=== PATIENT | female | born 1940 | race Caucasian/White ===

== ENCOUNTER → 2019-06-24 11:41 | Outpatient (BNVA) | payer MEDICARE, OTHER, SELFPAY | PROVIDERS: Family Provider Nurse Practitioner Family; PCP Nurse Practitioner Family; Visit Provider Nurse Practitioner Family | DX: M81.0 Age-related osteoporosis without current pathological fracture (principal); E03.4 Atrophy of thyroid (acquired) | CPT/HCPCS: 84443 ==

== ENCOUNTER → 2020-01-17 09:19 | Outpatient (BNVA) | payer MEDICARE, OTHER, SELFPAY | PROVIDERS: Family Provider Nurse Practitioner Family; PCP Nurse Practitioner Family; Visit Provider Nurse Practitioner Family | DX: I10 Essential (primary) hypertension (principal); E03.4 Atrophy of thyroid (acquired); E07.9 Disorder of thyroid, unspecified; Z79.899 Other long term (current) drug therapy | CPT/HCPCS: 80053; 80061; 84443 ==

== ENCOUNTER → 2020-09-15 09:48 | Outpatient (BNVA) | payer MEDICARE, OTHER, SELFPAY | PROVIDERS: Family Provider Nurse Practitioner Family; PCP Nurse Practitioner Family; Visit Provider Nurse Practitioner Family | DX: E78.5 Hyperlipidemia, unspecified (principal); I10 Essential (primary) hypertension; E03.4 Atrophy of thyroid (acquired) | CPT/HCPCS: 80053; 80061; 84443 ==

== ENCOUNTER 2021-06-21 13:38 | Emergency (ER) | payer MEDICARE, OTHER, SELFPAY ==
--- NOTE | 2021-06-21 13:58 | ED_ITS ---
Documented by User: JUDY Rosado 06/21/21 16:50 HPI - Nausea/Vomiting/Diarrhea General: Chief complaint: Syncope Stated complaint: N/D, WEAKNESS, PASSING OUT Time Seen by Provider: 06/21/21 20:50 History of Present Illness: HPI Narrative: Patient presents with nausea for the last couple days. Has had little bit of diarrhea. Patient denies any fever chills shortness of breath chest pain. Patient says she had a syncopal episode today around lunchtime when she was walking says she just passed out. She was able to let her self down slowly. She denies any injury. States she feels better now. Says she has been drinking plenty of fluids. Has history of hypertension and hypothyroidism. Patient does not appear in acute distress triage nurse relates that it was not a syncopal episode but that she let her self down slowly. And this would make more sense with what she described to me earlier. Family said it was a syncopal episode though they thought [facility] ED PFSH: Medical History HTN (hypertension) Hyperlipidemia Hypothyroidism Osteoporosis Family History Father Hypertension Social History Smoking and tobacco status: never smoked Lives independently: Yes Housing: House Marital status: / Course Vital Signs: Vital signs: Vital Signs Temperature 99.4 F 06/21/21 22:03 Pulse Rate 74 06/21/21 22:03 Respiratory Rate 18 06/21/21 22:03 Blood Pressure 143/84 06/21/21 22:03 Pulse Oximetry 95 06/21/21 22:03 MDM - Nausea/Vomiting/Diarrhea MDM Narrative Medical decision making narrative: Brief history and physical exam was performed as part of the triage process. Due to current ED wait time patient will be placed in waiting room until a room becomes available. Explained to patient he/she will be seen in order of severity. Patient is currently safe to wait in the waiting room until we can get them placed. Patient informed that if condition worsens at any time to please let the front line leader know. Patient does not appear in any acute distress. Patient very pleasant to visit with. Labs radiology studies were ordered. I have kept family informed after the area lab study was back. Patient has been in no distress has been waiting patiently. Awaiting 2-hour troponin now. Lab Data Result diagrams: 06/21/21 14:50 06/21/21 14:50 Labs: Lab Results 06/21/21 06/21/21 06/21/21 14:50 14:50 14:50 WBC 5.7 10^3/uL 10^3/uL (4.0-10.0) RBC 4.62 10^6/uL 10^6/uL (4.1-5.3) Hgb 14.5 g/dL g/dL (11.5-15.3) Hct 44.2 % % (37.0-47.0) MCV 95.7 fl fl (81-99) MCH 31.4 pg pg (28.0-34.0) MCHC 32.8 g/dL g/dL (30.0-36.0) RDW 13.0 % % (12.1-15.1) Plt Count 152 10^3/cmm 10^3/cmm (130-400) MPV 11.0 fL H fL (7.4-10.4) Neut % (Auto) 54.0 % % Lymph % (Auto) 31.8 % % [place] % (Auto) 13.4 % % Eos % (Auto) 0.0 % % Baso % (Auto) 0.4 % % Neut # (Auto) 3.06 10^3/uL 10^3/uL (1.8-7.7) Lymph # (Auto) 1.8 10^3/uL 10^3/uL (0.8-4.8) [place] # (Auto) 0.8 10^3/uL 10^3/uL (0.2-0.9) Eos # (Auto) 0.0 10^3/uL 10^3/uL (0.0-0.8) Baso # (Auto) 0.0 10^3/uL 10^3/uL (0.0-0.1) Nucleated RBC % (auto) 0 % % Nucleated RBCs # 0.0 /100WBC /100WBC Sodium 135 mmol/L L mmol/L (136-145) Potassium 3.9 mmol/L mmol/L (3.5-5.1) Chloride 98 mmol/L mmol/L (98-107) Carbon Dioxide 26 mmol/L mmol/L (22-29) Anion Gap 14.9 (5-19) BUN 14 mg/dL mg/dL (8-23) Creatinine 0.8 mg/dL mg/dL (0.5-0.9) GFR Calculation Not Reportable Glucose 108 mg/dL mg/dL (65-115) Calculated Osmolality 281 mOsm/kg L mOsm/kg (285-295) Calcium 8.7 mg/dL mg/dL (8.5-10.5) Total Bilirubin 0.2 mg/dL mg/dL (0.15-1.2) AST 25 U/L U/L (0-32) ALT 15 U/L U/L (0-33) Alkaline Phosphatase 76 IU/L IU/L (35-105) Troponin T Baseline 29 ng/L H ng/L (0-10) Troponin T 120 Minute Delta Troponin T Total Protein 6.4 g/dL L g/dL (6.6-8.7) Albumin 4.2 g/dL g/dL (3.5-5.2) Globulin 2.2 g/dL g/dL (1.3-4.6) Lipase 32 U/L U/L (13-60) Urine Color Urine Appearance Urine pH Ur Specific [place] Urine Protein Urine Glucose (UA) Urine Ketones Urine Blood Urine Nitrate Urine Bilirubin Urine Urobilinogen Ur Leukocyte Esterase Urine RBC Urine WBC Ur Squamous Epith Cells Amorphous Sediment Urine Bacteria Urine Mucus SARS-CoV-2 RNA (RT-PCR) 06/21/21 06/21/21 06/21/21 15:55 16:58 20:50 WBC RBC Hgb Hct MCV MCH MCHC RDW Plt Count MPV Neut % (Auto) Lymph % (Auto) [place] % (Auto) Eos % (Auto) Baso % (Auto) Neut # (Auto) Lymph # (Auto) [place] # (Auto) Eos # (Auto) Baso # (Auto) Nucleated RBC % (auto) Nucleated RBCs # Sodium Potassium Chloride Carbon Dioxide Anion Gap BUN Creatinine GFR Calculation Glucose Calculated Osmolality Calcium Total Bilirubin AST ALT Alkaline Phosphatase Troponin T Baseline Troponin T 120 Minute 27.52 ng/L H ng/L (0-10) Delta Troponin T -1.48 ABS# L ABS# (0-10) Total Protein Albumin Globulin Lipase Urine Color Yellow (Yellow) Urine Appearance Clear (CLEAR) Urine pH 5 (5-7) Ur Specific [place] 1.020 (1.005-1.030) Urine Protein Neg (Negative) Urine Glucose (UA) Norm (Normal) Urine Ketones Negative (Negative) Urine Blood Trace H (Negative) Urine Nitrate Negative (Negative) Urine Bilirubin Neg (Negative) Urine Urobilinogen Norm mg/dL mg/dL (Negative) Ur Leukocyte Esterase Negative (Negative) Urine RBC Rare /hpf /hpf (0-2) Urine WBC 0-4 /hpf H /hpf (0-5) Ur Squamous Epith Cells None /hpf /hpf (0-5) Amorphous Sediment Not Reportable Urine Bacteria Trace /hpf /hpf (NONE) Urine Mucus Trace /hpf /hpf SARS-CoV-2 RNA (RT-PCR) Detected A (NOT DETECTED) Discharge Plan Discharge Patient Disposition: Home Clinical Impression: Weakness, Nausea Diarrhea Qualifiers: Diarrhea type: unspecified type Qualified Code(s): R19.7 - Diarrhea, unspecified Condition: Stable Prescriptions: New ondansetron 4 mg tablet,disintegrating 4 mg PO Q8H PRN (Reason: nausea and vomiting) Qty: 15 0RF No Action furosemide [Lasix] 40 mg tablet 40 mg PO .PRN 0RF levothyroxine 50 mcg tablet See Rx Instructions .ROUTE .COMPLEX Qty: 90 0RF Dose Instruction: TAKE 1 TABLET BY MOUTH EVERY DAY Rx Instructions: TAKE 1 TABLET BY MOUTH EVERY DAY metoprolol tartrate 100 mg tablet See Rx Instructions .ROUTE .COMPLEX Qty: 90 0RF Dose Instruction: TAKE 1 TABLET BY MOUTH EVERY DAY Rx Instructions: TAKE 1 TABLET BY MOUTH EVERY DAY lisinopril 40 mg tablet See Rx Instructions .ROUTE .COMPLEX Qty: 90 0RF Dose Instruction: TAKE 1 TABLET BY MOUTH EVERY DAY Rx Instructions: TAKE 1 TABLET BY MOUTH EVERY DAY alendronate 70 mg tablet See Rx Instructions .ROUTE .COMPLEX Qty: 12 0RF Dose Instruction: TAKE 1 TABLET BY MOUTH WEEKLY Rx Instructions: TAKE 1 TABLET BY MOUTH WEEKLY Discharge Orders: Discharge ED (Routine); Ordered 06/21/21 Ordered By: Asael Hazel Referrals: Wendy Johnston FNP [Primary Care Provider] - Discharge Diet: Regular Discharge Activity: Increase activity as tolerated Patient Instructions: Acute Diarrhea (ED) Activity Restrictions/Additional Instructions: Follow-up with medical provider as directed in the next 3 days for reevaluation. Covid test was done here in the ED and results should be back within the next 36 to 48 hours. [facility] to get COVID-19 results. Take medications as prescribed. Having multiple episodes of diarrhea daily but you at increased risk for dehydration. Make sure you drink plenty of fluids and stay hydrated. Return to the ER or your medical provider if condition worsens. Please read and understand discharge instructions. [facility]. Please realize this is an emergency room and that we are providing you with a medical screening exam and this may not be complete and all inclusive of all the testing and or work up that you may need to determine your ailment or severity of your illness. It is very important that you follow up as instructed or that you return to the Emergency Department should you have concerns or if your condition changes or worsens in any way. Coding Level of Care Code ED Loan Servicing Officer for Chg Fwd Exam Comprehensive Documented by User: TAB Taylor 06/22/21 01:20 HPI - Nausea/Vomiting/Diarrhea General: Chief complaint: Syncope Stated complaint: N/D, WEAKNESS, PASSING OUT Time Seen by Provider: 06/21/21 20:50 History of Present Illness: HPI Narrative: Patient is an 81-year-old female that comes to the ED with generalized weakne ss/fatigue nausea and diarrhea. Symptoms of diarrhea and nausea started approximately 2 days ago. Today she was feeling more weak and says that she was walking and due to her weakness she slowly lowered herself down to the ground. She denies any syncopal episode, loss of consciousness, fall, head injury. Patient says she was aware of what she was doing and controlled herself down and denies any head trauma. For the past 2 days she has had diarrhea and this morning she had 5 episodes of diarrhea. She has nausea but no episodes of emesis. Patient says she has an appointment with her PCP tomorrow. Associated nausea: Yes Associated symtoms: Reports fatigue (generalized weakness) and nausea; Denies change in vision, chest pain, dysuria, headache(s) or palpitations Review of Systems Const: Reports: change in appetite (Decreased) and fatigue (generalized weakness); Denies: fever(s) or chills Eyes: Denies: change in vision or eye discomfort ENMT: Denies: throat pain, odynophagia, nasal discharge or nasal congestion Card: Denies: chest pain, palpitations, edema, swelling of feet/ankles, dyspnea on exertion or orthopnea Resp: Denies: dyspnea, productive cough or non-productive cough GI: Reports: nausea and diarrhea; Denies: abdominal pain, vomiting, constipation or hematochezia : Denies: flank pain, dysuria or hematuria Musc: Denies: neck pain, back pain or extremity swelling Skin/Breast: Denies: rash or new lesions Neuro: Denies: headache(s), numbness in extremities or weakness in extremities PFSH ED PFSH: Medical History HTN (hypertension) Hyperlipidemia Hypothyroidism Osteoporosis Family History Father Hypertension Social History Smoking and tobacco status: never smoked Lives independently: Yes Housing: House Marital status: / Physical Exam Const: COMMON NORMALS: no acute distress, patient oriented x3 and alert GENERAL APPEARANCE: cooperative and comfortable HENMT: COMMON NORMALS: normocephalic HEAD & SCALP: normocephalic MOUTH: Normal oral and palatal mucosa present THROAT: posterior oropharynx normal and uvula midline Eye: COMMON NORMALS: EOMs intact bilaterally and conjunctivae normal CONJUNCTIVA: Yes conjunctivae normal Neck/C-Spine: COMMON NORMALS: supple GENERAL: Yes normal visual inspection Resp: COMMON NORMALS: normal respiratory effort, No retractions, No use of accessory muscles and clear to auscultation bilaterally AUSCULTATION: clear to auscultation bilaterally Cardio: COMMON NORMALS: regular rate, regular rhythm, S1 normal heart sound present, S2 normal heart sound present, No gallops present (Cardio), No clicks present (Cardio), No murmurs present (Cardio) and Peripheral pulses 2+ throughout RATE: regular rate RHYTHM: regular rhythm HEART SOUNDS: S1 normal heart sound present and S2 normal heart sound present PERIPHERAL PULSES: Peripheral pulses 2+ throughout GI: COMMON NORMALS: Normal to inspection, nondistended, normoactive bowel sounds present, Soft to palpation, non-tender and no masses PALPATION: Yes Soft to palpation : COMMON NORMALS: Yes no CVA tenderness BLADDER/KIDNEY EXAM: Yes no CVA tenderness Back/Pelvis: COMMON NORMALS: no CVA tenderness Neuro: COMMON NORMALS: patient oriented x3, CN's II-XII intact bilaterally, moves all extremities, no focal motor deficits and no sensory deficits noted SENSORIUM/ORIENTATION: Yes alert SPEECH: speech normal Skin: GENERAL SKIN EXAM: dry skin Course Reevaluation(s): Reevaluation #1: Patient was brought back into vertical flow to discuss lab, imaging results and to reevaluate her for possible discharge. Patient says she feels normal with just a little bit of fatigue and generalized weakness. Her exam was normal. I discussed with patient the possibility of her having Covid due to her symptoms and I recommended her to be tested. She agreed and we tested her for COVID-19. I told patient and her son to talk with her PCP her appointment tomorrow about the possibility of monoclonal antibody infusions if Covid test is positive. Patient was stable and comfortable with discharge home. They understood and agreed with plan. She has follow-up with her PCP tomorrow morning. Her son and [id number] were present here in the ED. Time: 21:09 Vital Signs: Vital signs: Vital Signs Temperature 99.4 F 06/21/21 22:03 Pulse Rate 74 06/21/21 22:03 Respiratory Rate 18 06/21/21 22:03 Blood Pressure 143/84 06/21/21 22:03 Pulse Oximetry 95 06/21/21 22:03 MDM - Nausea/Vomiting/Diarrhea MDM Narrative Medical decision making narrative: Patient is an 81-year-old female who comes to the ED with nausea, diarrhea and fatigue/generalized weakness. Patient did not have a syncopal episode, but describes saying she felt weak while up moving around and she decided to lower herself to the floor because she was worried with how weak she was feeling she was going to fall. She denies any loss of consciousness or head trauma and was a hare the whole time she was lowering herself purposefully to the floor. She has had nausea, diarrhea for the past 2 days. Vitals stable. Labs were done and showed no acute findings. Troponins were negative. Chest x-ray showed no acute findings. EKG showed sinus rhythm with no ST segment elevation or depression seen. [facility] COVID-19 testing was performed and is pending. I reviewed patient case labs and EKG with Dr. Payne to discuss possible DC from waiting room since all labs, imaging done and normal. Dr. Payne agreed with discharge home as long as she has close follow-up and she has an appointment with her PCP already scheduled for tomorrow. Patient was brought back into vertical flow to discuss lab, imaging results and to reevaluate her for possible discharge. Patient says she feels normal with just a little bit of fatigue and generalized weakness. Her exam was normal. I discussed with patient the possibility of her having Covid due to her symptoms and I recommended her to be tested. She agreed and we tested her for COVID-19. I told patient and her son to talk with her PCP her appointment tomorrow about the possibility of monoclonal antibody infusions if Covid test is positive. Patient was stable and comfortable with discharge home. She was sent home with a prescription for Zofran for nausea. She was encouraged to make sure she drinks plenty of fluids and stays hydrated. They understood and agreed with plan. She has follow-up with her PCP tomorrow morning. Her son and [id number] were present here in the ED. Lab Data Attestation: I reviewed the patient's lab results. Result diagrams: 06/21/21 14:50 06/21/21 14:50 Labs: Lab Results 06/21/21 06/21/21 06/21/21 14:50 14:50 14:50 WBC 5.7 10^3/uL 10^3/uL (4.0-10.0) RBC 4.62 10^6/uL 10^6/uL (4.1-5.3) Hgb 14.5 g/dL g/dL (11.5-15.3) Hct 44.2 % % (37.0-47.0) MCV 95.7 fl fl (81-99) MCH 31.4 pg pg (28.0-34.0) MCHC 32.8 g/dL g/dL (30.0-36.0) RDW 13.0 % % (12.1-15.1) Plt Count 152 10^3/cmm 10^3/cmm (130-400) MPV 11.0 fL H fL (7.4-10.4) Neut % (Auto) 54.0 % % Lymph % (Auto) 31.8 % % [place] % (Auto) 13.4 % % Eos % (Auto) 0.0 % % Baso % (Auto) 0.4 % % Neut # (Auto) 3.06 10^3/uL 10^3/uL (1.8-7.7) Lymph # (Auto) 1.8 10^3/uL 10^3/uL (0.8-4.8) [place] # (Auto) 0.8 10^3/uL 10^3/uL (0.2-0.9) Eos # (Auto) 0.0 10^3/uL 10^3/uL (0.0-0.8) Baso # (Auto) 0.0 10^3/uL 10^3/uL (0.0-0.1) Nucleated RBC % (auto) 0 % % Nucleated RBCs # 0.0 /100WBC /100WBC Sodium 135 mmol/L L mmol/L (136-145) Potassium 3.9 mmol/L mmol/L (3.5-5.1) Chloride 98 mmol/L mmol/L (98-107) Carbon Dioxide 26 mmol/L mmol/L (22-29) Anion Gap 14.9 (5-19) BUN 14 mg/dL mg/dL (8-23) Creatinine 0.8 mg/dL mg/dL (0.5-0.9) GFR Calculation Not Reportable Glucose 108 mg/dL mg/dL (65-115) Calculated Osmolality 281 mOsm/kg L mOsm/kg (285-295) Calcium 8.7 mg/dL mg/dL (8.5-10.5) Total Bilirubin 0.2 mg/dL mg/dL (0.15-1.2) AST 25 U/L U/L (0-32) ALT 15 U/L U/L (0-33) Alkaline Phosphatase 76 IU/L IU/L (35-105) Troponin T Baseline 29 ng/L H ng/L (0-10) Troponin T 120 Minute Delta Troponin T Total Protein 6.4 g/dL L g/dL (6.6-8.7) Albumin 4.2 g/dL g/dL (3.5-5.2) Globulin 2.2 g/dL g/dL (1.3-4.6) Lipase 32 U/L U/L (13-60) Urine Color Urine Appearance Urine pH Ur Specific [place] Urine Protein Urine Glucose (UA) Urine Ketones Urine Blood Urine Nitrate Urine Bilirubin Urine Urobilinogen Ur Leukocyte Esterase Urine RBC Urine WBC Ur Squamous Epith Cells Amorphous Sediment Urine Bacteria Urine Mucus SARS-CoV-2 RNA (RT-PCR) 06/21/21 06/21/21 06/21/21 15:55 16:58 20:50 WBC RBC Hgb Hct MCV MCH MCHC RDW Plt Count MPV Neut % (Auto) Lymph % (Auto) [place] % (Auto) Eos % (Auto) Baso % (Auto) Neut # (Auto) Lymph # (Auto) [place] # (Auto) Eos # (Auto) Baso # (Auto) Nucleated RBC % (auto) Nucleated RBCs # Sodium Potassium Chloride Carbon Dioxide Anion Gap BUN Creatinine GFR Calculation Glucose Calculated Osmolality Calcium Total Bilirubin AST ALT Alkaline Phosphatase Troponin T Baseline Troponin T 120 Minute 27.52 ng/L H ng/L (0-10) Delta Troponin T -1.48 ABS# L ABS# (0-10) Total Protein Albumin Globulin Lipase Urine Color Yellow (Yellow) Urine Appearance Clear (CLEAR) Urine pH 5 (5-7) Ur Specific [place] 1.020 (1.005-1.030) Urine Protein Neg (Negative) Urine Glucose (UA) Norm (Normal) Urine Ketones Negative (Negative) Urine Blood Trace H (Negative) Urine Nitrate Negative (Negative) Urine Bilirubin Neg (Negative) Urine Urobilinogen Norm mg/dL mg/dL (Negative) Ur Leukocyte Esterase Negative (Negative) Urine RBC Rare /hpf /hpf (0-2) Urine WBC 0-4 /hpf H /hpf (0-5) Ur Squamous Epith Cells None /hpf /hpf (0-5) Amorphous Sediment Not Reportable Urine Bacteria Trace /hpf /hpf (NONE) Urine Mucus Trace /hpf /hpf SARS-CoV-2 RNA (RT-PCR) Detected A (NOT DETECTED) Imaging Data^ CXR: Attestation: I personally reviewed and interpreted this imaging study as follows: Radiologist's impression: [facility] [facility] [place], [place] [address]EDqq ReportSigned Patient: Gabbi Joiner #: [id number]: 1940cct#:[id number]/Sex: 81 / FADM Date: 06/21/21Loc: ERRoom/Bed:Attending Dr: Ordering Provider/Ordering MD: Monique Lopez Sr, [facility] Date of Service: 06/21/21 Procedure(s): XR chest 1V portable [id number] Accession Number(s): [id number] Report Number: [id number] WS: [id number] CHEST XRAY TECHNIQUE: Portable chest. CLINICAL INFORMATION: syncope COMPARISON: None. FINDINGS: Heart: Cardiomegaly. Lungs: Chronic emphysematous changes. No acute pulmonary infiltrates. No focal pneumonia or pleural fluid. Bones: Mild thoracic curve. XR/XR chest 1V portable [id number] IMPRESSION: No acute chest findings. Dictated By:Sammy Gamez MDSigned By:Sammy Gamez MDSigned Date/Time:06/21/21 1441DD/ 1440 EKG Data^ EKG 1: Attestation: I personally reviewed and interpreted this EKG as follows: EKG interpretation date: 06/21/21 Computer generated interpretation: [place] [id number] [facility] [place], [place] [email or web address] ReportDraft Patient: Gabbi Joiner #: [id number]: [birth year]Acct#:[id number]/Sex: 81 / FADM Date: 06/21/21Loc: ERRoom/Bed:Attending Dr: Ordering Provider/Ordering MD: Monique Lopez Sr, [facility] Date of Service: 06/21/21 Procedure(s): ECG 12 lead EKG Accession Number(s): [id number] Report Number: [id number] [facility] Test Date: 2021-06-21 Pat Name: Yazmin Joiner Department: Room: Gender: Female [place] Floor: : 1940 Requested By: Alphonso Lopez Order Number: [id number] Maximilian MD: Measurements Intervals [place] Rate: 72 P: 15 NV: 159 QRS: -54 QRSD: 95 T: 19 QT: 376 QTc: 414 Interpretive Statements SINUS RHYTHM PATTERN CONSISTENT WITH PULMONARY DISEASE LEFT ANTERIOR FASCICULAR BLOCK [QRS AXIS <= -45, QR IN I, RS IN II] VOLTAGE CRITERIA FOR LVH [MEETS CRITERIA IN ONE OF: R(aVL), S(V1), R(V5), R(V5/V6)+S(V1)] No previous ECG available for comparison [email or web address] Dictated By:INTERFACE,USERSigned By:Signed Date/Time:DD/ 1440 EKG 2: Attestation: I personally reviewed and interpreted this EKG as follows: EKG interpretation date: 06/21/21 EKG interpretation time: 20:16 Interpretation: Sinus rhythm with occasional supraventricular premature complexes. [address] segment elevation or depression seen. Discharge Plan Discharge Patient Disposition: Home Clinical Impression: Weakness, Nausea Diarrhea Qualifiers: Diarrhea type: unspecified type Qualified Code(s): R19.7 - Diarrhea, unspecified Condition: Stable Prescriptions: New ondansetron 4 mg tablet,disintegrating 4 mg PO Q8H PRN (Reason: nausea and vomiting) Qty: 15 0RF No Action furosemide [Lasix] 40 mg tablet 40 mg PO .PRN 0RF levothyroxine 50 mcg tablet See Rx Instructions .ROUTE .COMPLEX Qty: 90 0RF Dose Instruction: TAKE 1 TABLET BY MOUTH EVERY DAY Rx Instructions: TAKE 1 TABLET BY MOUTH EVERY DAY metoprolol tartrate 100 mg tablet See Rx Instructions .ROUTE .COMPLEX Qty: 90 0RF Dose Instruction: TAKE 1 TABLET BY MOUTH EVERY DAY Rx Instructions: TAKE 1 TABLET BY MOUTH EVERY DAY lisinopril 40 mg tablet See Rx Instructions .ROUTE .COMPLEX Qty: 90 0RF Dose Instruction: TAKE 1 TABLET BY MOUTH EVERY DAY Rx Instructions: TAKE 1 TABLET BY MOUTH EVERY DAY alendronate 70 mg tablet See Rx Instructions .ROUTE .COMPLEX Qty: 12 0RF Dose Instruction: TAKE 1 TABLET BY MOUTH WEEKLY Rx Instructions: TAKE 1 TABLET BY MOUTH WEEKLY Discharge Orders: Discharge ED (Routine); Ordered 06/21/21 Ordered By: Asael Hazel Referrals: Wendy Johnston FNP [Primary Care Provider] - Discharge Diet: Regular Discharge Activity: Increase activity as tolerated Patient Instructions: Acute Diarrhea (ED) Activity Restrictions/Additional Instructions: Follow-up with medical provider as directed in the next 3 days for reevaluation. Covid test was done here in the ED and results should be back within the next 3 6 to 48 hours. You can call [facility] to get COVID-19 results. Take medications as prescribed. Having multiple episodes of diarrhea daily but you at increased risk for dehydration. Make sure you drink plenty of fluids and stay hydrated. Return to the ER or your medical provider if condition worsens. Please read and understand discharge instructions. Thank you for choosing [facility] for your healthcare needs today. Please realize this is an emergency room and that we are providing you with a medical screening exam and this may not be complete and all inclusive of all the testing and or work up that you may need to determine your ailment or severity of your illness. It is very important that you follow up as instructed or that you return to the Emergency Department should you have concerns or if your condition changes or worsens in any way. Coding Level of Care Code ED Loan Servicing Officer for Chg Fwd Exam Comprehensive Documented by User: Mt Payne MD 06/25/21 21:49 HPI - Nausea/Vomiting/Diarrhea General: Chief complaint: Syncope Stated complaint: N/D, WEAKNESS, PASSING OUT Time Seen by Provider: 06/21/21 20:50 [facility] ED PFSH: Medical History HTN (hypertension) Hyperlipidemia Hypothyroidism Osteoporosis Family History Father Hypertension Social History Smoking and tobacco status: never smoked Lives independently: Yes Housing: House Marital status: / Course Vital Signs: Vital signs: Vital Signs Temperature 99.4 F 06/21/21 22:03 Pulse Rate 74 06/21/21 22:03 Respiratory Rate 18 06/21/21 22:03 Blood Pressure 143/84 06/21/21 22:03 Pulse Oximetry 95 06/21/21 22:03 MDM - Nausea/Vomiting/Diarrhea MDM Narrative Medical decision making narrative: I discussed this patient with TAB Taylor. I have reviewed documentation. Mt Payne MD Emergency Medicine Lab Data Result diagrams: 06/21/21 14:50 06/21/21 14:50 Labs: Lab Results 06/21/21 06/21/21 06/21/21 14:50 14:50 14:50 WBC 5.7 10^3/uL 10^3/uL (4.0-10.0) RBC 4.62 10^6/uL 10^6/uL (4.1-5.3) Hgb 14.5 g/dL g/dL (11.5-15.3) Hct 44.2 % % (37.0-47.0) MCV 95.7 fl fl (81-99) MCH 31.4 pg pg (28.0-34.0) MCHC 32.8 g/dL g/dL (30.0-36.0) RDW 13.0 % % (12.1-15.1) Plt Count 152 10^3/cmm 10^3/cmm (130-400) MPV 11.0 fL H fL (7.4-10.4) Neut % (Auto) 54.0 % % Lymph % (Auto) 31.8 % % [place] % (Auto) 13.4 % % Eos % (Auto) 0.0 % % Baso % (Auto) 0.4 % % Neut # (Auto) 3.06 10^3/uL 10^3/uL (1.8-7.7) Lymph # (Auto) 1.8 10^3/uL 10^3/uL (0.8-4.8) [place] # (Auto) 0.8 10^3/uL 10^3/uL (0.2-0.9) Eos # (Auto) 0.0 10^3/uL 10^3/uL (0.0-0.8) Baso # (Auto) 0.0 10^3/uL 10^3/uL (0.0-0.1) Nucleated RBC % (auto) 0 % % Nucleated RBCs # 0.0 /100WBC /100WBC Sodium 135 mmol/L L mmol/L (136-145) Potassium 3.9 mmol/L mmol/L (3.5-5.1) Chloride 98 mmol/L mmol/L (98-107) Carbon Dioxide 26 mmol/L mmol/L (22-29) Anion Gap 14.9 (5-19) BUN 14 mg/dL mg/dL (8-23) Creatinine 0.8 mg/dL mg/dL (0.5-0.9) GFR Calculation Not Reportable Glucose 108 mg/dL mg/dL (65-115) Calculated Osmolality 281 mOsm/kg L mOsm/kg (285-295) Calcium 8.7 mg/dL mg/dL (8.5-10.5) Total Bilirubin 0.2 mg/dL mg/dL (0.15-1.2) AST 25 U/L U/L (0-32) ALT 15 U/L U/L (0-33) Alkaline Phosphatase 76 IU/L IU/L (35-105) Troponin T Baseline 29 ng/L H ng/L (0-10) Troponin T 120 Minute Delta Troponin T Total Protein 6.4 g/dL L g/dL (6.6-8.7) Albumin 4.2 g/dL g/dL (3.5-5.2) Globulin 2.2 g/dL g/dL (1.3-4.6) Lipase 32 U/L U/L (13-60) Urine Color Urine Appearance Urine pH Ur Specific [place] Urine Protein Urine Glucose (UA) Urine Ketones Urine Blood Urine Nitrate Urine Bilirubin Urine Urobilinogen Ur Leukocyte Esterase Urine RBC Urine WBC Ur Squamous Epith Cells Amorphous Sediment Urine Bacteria Urine Mucus SARS-CoV-2 RNA (RT-PCR) 06/21/21 06/21/21 06/21/21 15:55 16:58 20:50 WBC RBC Hgb Hct MCV MCH MCHC RDW Plt Count MPV Neut % (Auto) Lymph % (Auto) [place] % (Auto) Eos % (Auto) Baso % (Auto) Neut # (Auto) Lymph # (Auto) [place] # (Auto) Eos # (Auto) Baso # (Auto) Nucleated RBC % (auto) Nucleated RBCs # Sodium Potassium Chloride Carbon Dioxide Anion Gap BUN Creatinine GFR Calculation Glucose Calculated Osmolality Calcium Total Bilirubin AST ALT Alkaline Phosphatase Troponin T Baseline Troponin T 120 Minute 27.52 ng/L H ng/L (0-10) Delta Troponin T -1.48 ABS# L ABS# (0-10) Total Protein Albumin Globulin Lipase Urine Color Yellow (Yellow) Urine Appearance Clear (CLEAR) Urine pH 5 (5-7) Ur Specific [place] 1.020 (1.005-1.030) Urine Protein Neg (Negative) Urine Glucose (UA) Norm (Normal) Urine Ketones Negative (Negative) Urine Blood Trace H (Negative) Urine Nitrate Negative (Negative) Urine Bilirubin Neg (Negative) Urine Urobilinogen Norm mg/dL mg/dL (Negative) Ur Leukocyte Esterase Negative (Negative) Urine RBC Rare /hpf /hpf (0-2) Urine WBC 0-4 /hpf H /hpf (0-5) Ur Squamous Epith Cells None /hpf /hpf (0-5) Amorphous Sediment Not Reportable Urine Bacteria Trace /hpf /hpf (NONE) Urine Mucus Trace /hpf /hpf SARS-CoV-2 RNA (RT-PCR) Detected A (NOT DETECTED) Discharge Plan Discharge Patient Disposition: Home Clinical Impression: Weakness, Nausea Diarrhea Qualifiers: Diarrhea type: unspecified type Qualified Code(s): R19.7 - Diarrhea, unspecified Condition: Stable Prescriptions: New ondansetron 4 mg tablet,disintegrating 4 mg PO Q8H PRN (Reason: nausea and vomiting) Qty: 15 0RF No Action furosemide [Lasix] 40 mg tablet 40 mg PO .PRN 0RF levothyroxine 50 mcg tablet See Rx Instructions .ROUTE .COMPLEX Qty: 90 0RF Dose Instruction: TAKE 1 TABLET BY MOUTH EVERY DAY Rx Instructions: TAKE 1 TABLET BY MOUTH EVERY DAY metoprolol tartrate 100 mg tablet See Rx Instructions .ROUTE .COMPLEX Qty: 90 0RF Dose Instruction: TAKE 1 TABLET BY MOUTH EVERY DAY Rx Instructions: TAKE 1 TABLET BY MOUTH EVERY DAY lisinopril 40 mg tablet See Rx Instructions .ROUTE .COMPLEX Qty: 90 0RF Dose Instruction: TAKE 1 TABLET BY MOUTH EVERY DAY Rx Instructions: TAKE 1 TABLET BY MOUTH EVERY DAY alendronate 70 mg tablet See Rx Instructions .ROUTE .COMPLEX Qty: 12 0RF Dose Instruction: TAKE 1 TABLET BY MOUTH WEEKLY Rx Instructions: TAKE 1 TABLET BY MOUTH WEEKLY Discharge Orders: Discharge ED (Routine); Ordered 06/21/21 Ordered By: Asael Hazel Referrals: Wendy Johnston FNP [Primary Care Provider] - Discharge Diet: Regular Discharge Activity: Increase activity as tolerated Patient Instructions: Acute Diarrhea (ED) Activity Restrictions/Additional Instructions: Follow-up with medical provider as directed in the next 3 days for reevaluation. Covid test was done here in the ED and results should be back within the next 36 to 48 hours. You can call [facility] to get COVID-19 results. Take medications as prescribed. Having multiple episodes of diarrhea daily but you at increased risk for dehydration. Make sure you drink plenty of fluids and stay hydrated. Return to the ER or your medical provider if condition worsens. Please read and understand discharge instructions. Thank you for choosing [facility] for your healthcare needs today. Please realize this is an emergency room and that we are providing you with a medical screening exam and this may not be complete and all inclusive of all the testing and or work up that you may need to determine your ailment or severity of your illness. It is very important that you follow up as instructed or that you return to the Emergency Department should you have concerns or if your condition changes or worsens in any way. Coding Level of Care Code ED Loan Servicing Officer for Favio Ann Exam Comprehensive
--- NOTE | 2021-06-21 13:58 | ECG_ITS ---
[facility] Test Date: 2021-06-21 Pat Name: Yazmin Joiner Department: Room: Gender: Female Conservation Of Resources Commissioner: : 1940 Requested By: Alphonso Lopez Order Number: [id number] Maximilian MD: Agnes Gibbs M.D. Measurements Intervals [place] Rate: 72 P: 15 [place]: 159 QRS: -54 QRSD: 95 T: 19 QT: 376 QTc: 414 Interpretive Statements SINUS RHYTHM PATTERN CONSISTENT WITH PULMONARY DISEASE LEFT ANTERIOR FASCICULAR BLOCK [QRS AXIS <= -45, QR IN I, RS IN II] VOLTAGE CRITERIA FOR LVH [MEETS CRITERIA IN ONE OF: R(aVL), S(V1), R(V5), R(V5/V6)+S(V1)] Compared to ECG 03/15/2017 10:56:21 Incomplete right bundle-branch block no longer present Myocardial infarct finding no longer present Electronically Signed On 06-21-2021 23:55:58 GLOST KILN OPERATOR by Agnes Gibbs M.D. [email or web address].[employer]/store/[id number] f
--- NOTE | 2021-06-21 13:59 | XR_ITS ---
WS: [id number] CHEST XRAY TECHNIQUE: Portable chest. CLINICAL INFORMATION: syncope COMPARISON: None. FINDINGS: Heart: Cardiomegaly. Lungs: Chronic emphysematous changes. No acute pulmonary infiltrates. No focal pneumonia or pleural f luid. Bones: Mild thoracic curve. XR/XR chest 1V portable [id number] IMPRESSION: No acute chest findings.
[2021-06-21 14:43] VITALS: BP 191/94; PULSE 72; RESP 18; TEMP 37.3; O2SAT 94; BMI 26.5
[2021-06-21 15:07] LABS: Basophils % 0.4 %; Hematocrit 44.2 % (37.0-47.0); Hemoglobin 14.5 g/dL (11.5-15.3); Lymphocytes # 1.8 10^3/uL (0.8-4.8); Lymphocytes % 31.8 %; Mean Corpuscular HGB Conc 32.8 g/dL (30.0-36.0); Mean Corpuscular Hemoglobin 31.4 pg (28.0-34.0); Mean Corpuscular Volume 95.7 fl (81-99); Monocytes # 0.8 10^3/uL (0.2-0.9); Monocytes % 13.4 %; Neutrophils # 3.06 10^3/uL (1.8-7.7); Nucleated Red Blood Cells % 0 %; Platelet Count 152 10^3/cmm (130-400); Red Blood Count 4.62 10^6/uL (4.1-5.3); White Blood Count 5.7 10^3/uL (4.0-10.0)
[2021-06-21 15:27] LABS: Alanine Aminotransferase 15 U/L (0-33); Albumin Level 4.2 g/dL (3.5-5.2); Alkaline Phosphatase 76 IU/L (35-105); Anion Gap 14.9 (5-19); Aspartate Amino Transferase 25 U/L (0-32); Blood Urea Nitrogen 14 mg/dL (8-23); Calcium 8.7 mg/dL (8.5-10.5); Carbon Dioxide 26 mmol/L (22-29); Chloride 98 mmol/L (98-107); Creatinine Clr Calc Pharmacy 49.3379; Globulin 2.2 g/dL (1.3-4.6); Glucose 108 mg/dL (65-115); Lipase 32 U/L (13-60); Osmolality Calculated 281 mOsm/kg (285-295); Potassium 3.9 mmol/L (3.5-5.1); Sodium 135 mmol/L (136-145); Total Bilirubin 0.2 mg/dL (0.15-1.2); Total Protein 6.4 g/dL (6.6-8.7)
[2021-06-21 15:30] LABS: Troponin(5th) Baseline 29 ng/L (0-10)
[2021-06-21 16:41] LABS: Urine Appearance Clear (CLEAR); Urine Color Yellow (Yellow); pH Urine 5 (5-7)
[2021-06-21 16:42] LABS: Add Urine Culture? No; Add Urine Microscopic? YES; Bacteria Urine TRACE /hpf; Bilirubin Urine Neg (Negative); Blood Urine Trace (Negative); Glucose Urine UA Norm (Normal); Ketones Urine Negative (Negative); Leukocyte Esterase Urine Negative (Negative); Mucus Urine TRACE /hpf; Nitrate Urine Negative (Negative); Protein Urine Neg (Negative); RBC Urine RARE /hpf (0-2); Urobilinogen Urine Norm (Negative); WBC Urine 0-4 /hpf (0-5)
[2021-06-21 17:32] LABS: Troponin 5 2HR 27.52 ng/L (0-10)
[2021-06-21 17:37] LABS: Troponin 5 2HR Delta -1.48 ABS# (0-10)
--- NOTE | 2021-06-21 19:58 | ECG_ITS ---
[facility] Test Date: 2021-06-21 Pat Name: Yazmin Joiner Department: Room: Gender: Female Marketing Communications Manager: : 1940 Requested By: Alphonso Lopez Order Number: [id number] Maximilian MD: Tameka Rhodes M.D. Measurements Intervals [place] Rate: 87 P: 23 CT: 167 QRS: -70 QRSD: 92 T: 22 QT: 362 QTc: 437 Interpretive Statements SINUS RHYTHM WITH OCCASIONAL SUPRAVENTRICULAR PREMATURE COMPLEXES LEFT ANTERIOR FASCICULAR BLOCK [QRS AXIS <= -45, QR IN I, RS IN II] POSSIBLE ANTERIOR MYOCARDIAL INFARCTION , OF INDETERMINATE AGE [30 ms Q WAVE IN V3/V4, OR R < 0.2 mV IN V4] Compared to ECG 06/21/2021 14:40:40 Right ventricular hypertrophy now present Myocardial infarct finding now present Left ventricular hypertrophy no longer present Electronically Signed On 06-22-2021 17:28:16 OVERWEAVER by Tameka Rhodes M.D. [email or web address].[email or web address]/[id number]
[2021-06-21 22:02] VITALS: BP 143/84; PULSE 74; RESP 18; TEMP 37.4; O2SAT 95
[2021-06-21 22:03] VITALS: BP 143/84; PULSE 74; RESP 18; TEMP 37.4; O2SAT 95
[2021-06-23 14:58] LABS: Quest SARS-CoV-2 RNA DETECTED (NOT DETECTED)
--- NOTE | 2021-06-24 18:28 | PC.NURSE ---
Left Voicemail to return call to the ER
--- NOTE | 2021-06-24 18:34 | PC.NURSE ---
Pt notified of COVID (+)
== END 2021-06-21 22:04 | disposition home or self-care (01) ==
PROVIDERS: Nurse Practitioner Family; Emergency Provider Physician Assistant; PCP Nurse Practitioner Family
DX: U07.1 COVID-19 (principal); I10 Essential (primary) hypertension; E78.5 Hyperlipidemia, unspecified
CPT/HCPCS: 71045; 80053; 81001; 83690; 84484; 85025; 87635; 93005; 99283

== ENCOUNTER → 2021-10-22 08:53 | Outpatient (BNVA) | payer MEDICARE, OTHER, SELFPAY | PROVIDERS: PCP Nurse Practitioner Family; Visit Provider Nurse Practitioner Family | DX: I10 Essential (primary) hypertension (principal); E03.9 Hypothyroidism, unspecified | CPT/HCPCS: 80053; 80061; 84443 ==

== ENCOUNTER → 2022-01-20 08:49 | Outpatient (BNVA) | payer MEDICARE, OTHER, SELFPAY | PROVIDERS: PCP Nurse Practitioner Family; Visit Provider Nurse Practitioner Family | DX: E03.4 Atrophy of thyroid (acquired) (principal); I10 Essential (primary) hypertension; E78.5 Hyperlipidemia, unspecified | CPT/HCPCS: 80053; 80061 ==

== ENCOUNTER → 2022-03-29 08:45 | Outpatient (BNVA) | payer MEDICARE, OTHER, SELFPAY | PROVIDERS: PCP Nurse Practitioner Family; Visit Provider Nurse Practitioner Family | DX: E03.4 Atrophy of thyroid (acquired) (principal); E78.2 Mixed hyperlipidemia | CPT/HCPCS: 80061 ==

== ENCOUNTER → 2022-10-25 10:30 | Outpatient (BNVA) | payer MEDICARE, OTHER, SELFPAY | PROVIDERS: PCP Nurse Practitioner Family; Visit Provider Nurse Practitioner Family | DX: I10 Essential (primary) hypertension (principal); M25.469 Effusion, unspecified knee; E78.2 Mixed hyperlipidemia; E03.4 Atrophy of thyroid (acquired) | CPT/HCPCS: 80053; 80061; 83880; 84443 ==

== ENCOUNTER 2022-11-18 08:34 | Outpatient (CLI) | payer MEDICARE, OTHER, SELFPAY ==
--- NOTE | 2022-11-18 09:15 | USCV_ITS ---
Yazmin Joiner Age: 82 Gender: F : 1940 Exam Date: 11/18/2022 08:58 Ordering Phys: Wendy Johnston SURGEON CHIEF-C SURGEON CHIEF Technologist: CT Exam Location: [facility] [place] Indication: hf BP: 150 / 73 HR: 56 Rhythm: Sinus Technical Quality: Adequate MEASUREMENTS (Male / Female) Normal Values 2D ECHO LV Diastolic Diameter PLAX 4.5 cm 4.2 - 5.9 / 3.9 - 5.3 cm LV Systolic Diameter PLAX 3.3 cm LV Chamber Size 4.1 cm IVS Diastolic Thickness 0.5 cm 0.6 - 1.0 / 0.6 - 0.9 cm IVS Systolic Thickness 0.9 cm LVPW Diastolic Thickness 0.9 cm 0.6 - 1.0 / 0.6 - 0.9 cm LVPW Systolic Thickness 1.2 cm RV Chamber Size 3.5 cm LVOT Diameter 2.1 cm LV Ejection Fraction 2D Teich 51.1 % LV Ejection Fraction MOD 2C 63.8 % LV Ejection Fraction 2C AL 63.7 % LA Diameter 3.6 cm LA Width 3.7 cm LA Height 5.8 cm RA Width 3.2 cm RA Height 4.7 cm Aorta at Sinotubular Diameter 2.6 cm IVC Diameter 1.5 cm M-MODE Aortic Annulus Diameter 3.3 cm LA Ao Ratio MM 1.2 MV E Point Septal Separation 0.9 cm DOPPLER AV Peak Velocity 127.0 cm/s LVOT Peak Velocity 89.0 cm/s AV Area Cont Eq vti 2.7 cm squared AV Area Cont Eq pk 2.4 cm squared MV Peak Velocity 127.0 cm/s MV Area PHT 3.7 cm squared Mitral E to A Ratio 0.9 MV E' Velocity 52.5 cm/s Mitral E to MV E' Ratio 13.7 Mitral E to LV E' Lateral Ratio 11.8 Mitral E to LV E' Septal Ratio 16.2 TR Peak Velocity 368.6 cm/s TR Peak Gradient 54.4 mmHg TR Mean Velocity 273.9 cm/s TR Mean Gradient 33.7 mmHg TR Velocity Time Integral 111.8 cm TV Peak E Velocity 77.0 cm/s Right Atrial Pressure 3.0 mmHg Pulmonary Artery Systolic Pressu 57.4 mmHg RV Acceleration Time 0.2 s FINDINGS Left Ventricle Left leg is normal in size. LV systolic function is normal with EF 55 to 60%. No regional wall motion normalities are seen. Grade 1 diastolic dysfunction Right Ventricle Normal in size and function Right Atrium Normal in size Left Atrium Normal size Mitral Valve Moderate mitral annular calcification. Mild mitral regurgitation. Aortic Valve Structurally normal aortic valve. No significant stenosis. Mild aortic regurgitation. Tricuspid Valve Mild tricuspid regurgitation. RVSP is 55 to 60 mmHg. This is consistent with moderate pulmonary hypertension. Pulmonic Valve Not well visualized Pericardium Normal Aorta Normal in size IVC Appears to be normal CONCLUSIONS LV systolic function normal with EF 55 to 60%. Grade 1 diastolic dysfunction. Mild mitral regurgitation. Mild aortic regurgitation. Mild tricuspid regurgitation Moderate pulmonary hypertension. No comparison studies are available Juan Butts MD (Electronically Signed) Final Date: 27 November 2022 10:41 S
== END 2022-11-18 08:35 | disposition home or self-care (01) ==
PROVIDERS: PCP Nurse Practitioner Family; Visit Provider Nurse Practitioner Family
DX: I50.9 Heart failure, unspecified (principal)
CPT/HCPCS: 93306

== ENCOUNTER → 2022-11-24 12:41 | Outpatient (BNVA) | payer MEDICARE, OTHER, SELFPAY | PROVIDERS: PCP Nurse Practitioner Family; Referring Provider Nurse Practitioner Family; Visit Provider Dermatology | DX: L57.0 Actinic keratosis (principal); I83.10 Varicose veins of unspecified lower extremity with inflammation; D69.2 Other nonthrombocytopenic purpura; L82.0 Inflamed seborrheic keratosis; D18.01 Hemangioma of skin and subcutaneous tissue | CPT/HCPCS: 11102; 17000; 17003; 99203 ==

== ENCOUNTER → 2023-01-05 12:17 | Outpatient (BNVA) | payer MEDICARE, OTHER, SELFPAY | PROVIDERS: PCP Nurse Practitioner Family; Visit Provider Internal Medicine | DX: I45.10 Unspecified right bundle-branch block (principal); I27.20 Pulmonary hypertension, unspecified; I35.1 Nonrheumatic aortic (valve) insufficiency; I34.0 Nonrheumatic mitral (valve) insufficiency; I07.1 Rheumatic tricuspid insufficiency | CPT/HCPCS: 93005; 99204 ==

== ENCOUNTER → 2023-03-22 11:09 | Outpatient (BNVA) | payer MEDICARE, OTHER, SELFPAY | PROVIDERS: PCP Nurse Practitioner Family; Visit Provider Nurse Practitioner Family | DX: L57.0 Actinic keratosis (principal); I83.10 Varicose veins of unspecified lower extremity with inflammation; D69.2 Other nonthrombocytopenic purpura; D18.01 Hemangioma of skin and subcutaneous tissue; L57.8 Other skin changes due to chronic exposure to nonionizing radiation | CPT/HCPCS: 17000; 99213 ==

== ENCOUNTER → 2023-07-18 10:24 | Outpatient (BNVA) | payer MEDICARE, OTHER, SELFPAY | PROVIDERS: PCP Nurse Practitioner Family; Visit Provider Nurse Practitioner Family | DX: E03.9 Hypothyroidism, unspecified (principal); I10 Essential (primary) hypertension | CPT/HCPCS: 80053; 80061; 84443 ==

== ENCOUNTER → 2023-10-24 10:03 | Outpatient (BNVA) | payer MEDICARE, OTHER, SELFPAY | PROVIDERS: PCP Nurse Practitioner Family; Visit Provider Nurse Practitioner Family | DX: I10 Essential (primary) hypertension (principal); E03.4 Atrophy of thyroid (acquired) | CPT/HCPCS: 80053; 80061; 84443 ==

== ENCOUNTER → 2023-12-04 08:28 | Outpatient (BNVA) | payer MEDICARE, OTHER, SELFPAY | PROVIDERS: PCP Nurse Practitioner Family; Visit Provider Nurse Practitioner Family | DX: I50.9 Heart failure, unspecified (principal) | CPT/HCPCS: 80053 ==

== ENCOUNTER → 2024-01-04 12:38 | Outpatient (BNVA) | payer MEDICARE, OTHER, MEDICAID, SELFPAY | PROVIDERS: PCP Nurse Practitioner Family; Visit Provider Internal Medicine | DX: E78.2 Mixed hyperlipidemia (principal); I11.0 Hypertensive heart disease with heart failure; I50.9 Heart failure, unspecified | CPT/HCPCS: 99214 ==

== ENCOUNTER 2024-01-26 22:54 | Inpatient (IN) | payer MEDICARE, MEDICAID, SELFPAY ==
[2024-01-26 23:23] VITALS: BP 131/82; PULSE 96; RESP 16; TEMP 36.5; O2SAT 96; BMI 26.7
[2024-01-27] VITALS (30 sets, daily range): BP systolic 61–134; BP diastolic 36–97; PULSE 74–131; RESP 13–36; TEMP 36.4–38.6; O2SAT 71–95; BMI 26.7
--- NOTE | 2024-01-27 04:22 | XRR_ITS ---
PROCEDURE INFORMATION: Exam: XR Chest Exam date and time: 01/27/2024 5:18 AM Age: 83 years old Clinical indication: Pain; Chest pressure; Patient HX: C/O cp. Positive st changes. Base trop of 1100. TECHNIQUE: Imaging protocol: Radiologic exam of the chest. Views: 1 view. COMPARISON: CR XR chest 1V portable [id number] 06/21/2021 2:15 PM FINDINGS: Lungs: There is linear atelectasis or scarring involving the right mid lung. There is infiltrate involving the lingula. Upper lungs are clear. Pleural spaces: Unremarkable. No pleural effusion. No pneumothorax. Heart/Mediastinum: The heart is slightly enlarged. There is calcified plaque involving the aorta. Bones/joints: Unremarkable. XR/XR chest 1V portable [id number] IMPRESSION: 1. Mild cardiomegaly. 2. Lingular infiltrate. Recommend follow-up to document resolution.
--- NOTE | 2024-01-27 04:23 | ECG_ITS ---
[facility] Test Date: 2024-01-27 Pat Name: Yazmin Joiner Department: Room: Gender: Female Metallurgical Technician: : 1940 Requested By: Mario Vyas Order Number: [id number] Maximilian MD: Juan Butts M.D. Measurements Intervals [place] Rate: 96 P: 59 MA: 197 QRS: -58 QRSD: 113 T: 98 QT: 376 QTc: 475 Interpretive Statements SINUS RHYTHM WITH OCCASIONAL SUPRAVENTRICULAR PREMATURE COMPLEXES LEFT AXIS DEVIATION [QRS AXIS < -30] PATTERN CONSISTENT WITH PULMONARY DISEASE LEFT VENTRICULAR HYPERTROPHY AND ST-T CHANGE [VOLTAGE CRITERIA PLUS ST/T ABNORMALITY] POSSIBLE SEPTAL MYOCARDIAL INFARCTION , PROBABLY RECENT [30 ms Q WAVE IN V1/V2] ACUTE ND Compared to ECG 01/05/2023 12:30:29 Left-axis deviation now present ST (T wave) deviation now present Myocardial infarct finding now present Left anterior fascicular block no longer present Electronically Signed On 01-27-2024 7:19:57 CDT by Juan Butts M.D. [id number]
[2024-01-27 04:41] LABS: Basophils % 0.1 %; Hematocrit 39.7 % (36-47); Lymphocytes # 1.6 10^3/uL (0.8-4.8); Lymphocytes % 8.8 %; Mean Corpuscular Hemoglobin 31.3 pg (27-33); Mean Platelet Volume 10.5 fL (7.4-10.4); Monocytes # 2.1 10^3/uL (0.2-0.9); Monocytes % 11.7 %; Neutrophils # 14.03 10^3/uL (1.8-7.7); Nucleated Red Blood Cells % 0 %; Platelet Count 223 10^3/cmm (157-399); Red Blood Count 4.18 10^6/uL (3.85-5.65); Red Cell Distribution Width 13.1 % (12.1-15.1); White Blood Count 17.77 10^3/uL (3.29-11.43)
[2024-01-27] MEDS: morphine 4 mg/mL SDV 1 mL 2 MG IVP (04:47)
[2024-01-27] MEDS: ondansetron 2 mg/ML SDV 2 mL 4 MG IVP (04:47)
[2024-01-27 05:13] LABS: Alanine Aminotransferase 18 U/L (0-33); Albumin Level 4.5 g/dL (3.5-5.2); Alkaline Phosphatase 61 U/L (35-105); Anion Gap 17.6 (5-19); Aspartate Amino Transferase 45 U/L (0-32); Blood Urea Nitrogen 18 mg/dL (8-23); Calcium 9.7 mg/dL (8.5-10.5); Carbon Dioxide 25 mmol/L (22-29); Chloride 99 mmol/L (98-107); Creatinine Clr Calc Pharmacy 38.2031; Globulin 2.4 g/dL (1.3-4.6); Glucose 169 mg/dL (65-115); Osmolality Calculated 292 mOsm/kg (285-295); Potassium 3.6 mmol/L (3.5-5.1); Sodium 138 mmol/L (136-145); Total Bilirubin 0.6 mg/dL (0.15-1.2); Total Protein 6.9 g/dL (6.6-8.7)
[2024-01-27 05:16] LABS: Troponin(5th) Baseline 1163 ng/L (0-10)
--- NOTE | 2024-01-27 05:27 | ED_ITS ---
HPI - Back Pain/Injury 2 General: Chief Complaint: Back Pain/Injury Stated Complaint: muscle spasms in back and neck &shoulder blade Time Seen by Provider: 01/27/24 04:16 History of Present Illness: 83-year-old female here with 4 weeks of upper back pain, radiating into her neck. She has had several chiropractic treatments, massages, without improvement. She saw her PCP yesterday, and was placed on muscle relaxers and steroids, which did not seem to help either. She relates feeling tired. No fever, no cough. She has no prior history of coronary disease. She does have a hypertension history. Related Data Previous Rx's Medication Instructions Recorded miconazole nitrate 2 % topical 1 applic topical BID #14 grams 10/25/22 cream (Antifungal (miconazole)) [id number] 3.3 4 drp otic (ear) TID #10 mL 10/18/23 mg-3 mg-10 mg-0.5 mg/mL ear drops,susp (Cortisporin-TC) alendronate 70 mg tablet See Rx Instructions .Route 01/09/24 .COMPLEX #12 tabs furosemide 20 mg tablet See Rx Instructions .Route 01/09/24 .COMPLEX #180 tabs levothyroxine 50 mcg tablet See Rx Instructions .Route 01/09/24 .COMPLEX #90 tabs lisinopril 40 mg tablet See Rx Instructions .Route 01/09/24 .COMPLEX #90 tabs metoprolol tartrate 100 mg tablet See Rx Instructions .Route 01/09/24 .COMPLEX #90 tabs baclofen 10 mg tablet 10 mg PO DAILY 10 days #10 tabs 01/26/24 prednisone 10 mg tablet 10 mg PO BID 3 days #6 tabs 01/26/24 Allergies Allergy/AdvReac Type Severity Reaction Status Date / Time No Known Allergies Allergy Verified 01/26/24 07:02 [facility] ED 2 PFSH: Medical History Hyperlipidemia Osteoporosis HTN (hypertension) Hypothyroidism Family History Father Hypertension Social History Smoking and tobacco/nicotine status: never used tobacco/nicotine Lives independently: Yes Housing: House Marital status: / Physical Exam 2 Const: COMMON NORMALS: no acute distress GENERAL APPEARANCE: cooperative; not ill appearing and not frail appearing HENMT: COMMON NORMALS: normocephalic, atraumatic and Normal external nose present HEAD & SCALP: normocephalic and atraumatic FACE & SINUS: normal facial exam and face symmetric NOSE: Normal external nose present Eye: COMMON NORMALS: Equal, round and reactive pupils present and EOMs intact bilaterally PUPIL: Yes Equal, round and reactive pupils present Neck/C-Spine: GENERAL: Yes trachea midline Chest: CHEST: Yes Symmetrical chest wall rise Resp: COMMON NORMALS: normal respiratory effort, No retractions, No use of accessory muscles and clear to auscultation bilaterally AUSCULTATION: clear to auscultation bilaterally Cardio: COMMON NORMALS: regular rate and regular rhythm RATE: regular rate RHYTHM: regular rhythm GI: COMMON NORMALS: Normal to inspection, nondistended, normoactive bowel sounds present Extremity: COMMON NORMALS: no pedal edema Neuro: JORDIN COMA SCALE: document GCS findings Jordin coma scale eye opening: Spontaneous Jordin coma scale verbal response: Orientated Jordin coma scale motor response: Obey commands Jordin coma scale total score: 15 S ENSORY EXAM: Yes extremities (intact) Psych: COMMON NORMALS: speech normal SPEECH: Yes normal speech Skin: COMMON NORMALS: no rashes or lesions noted GENERAL SKIN EXAM: no rashes or lesions noted Course 2 Vital Signs: Vital signs: Vital Signs Temperature 97.6 F 01/27/24 12:36 Pulse Rate 83 01/27/24 14:46 Respiratory Rate 16 01/27/24 14:15 Blood Pressure 84/48 01/27/24 14:15 Pulse Oximetry 91 01/27/24 14:15 Oxygen Delivery Me thod Nasal Cannula 01/27/24 14:15 Oxygen Flow Rate 1 01/27/24 14:15 MDM - Back Pain/Injury Medical Decision Making Pain is not reproducible on exam. Pain is somewhat suspicious for atypical anginal symptoms. EKG is obtained. Time is 04: 54. It shows sinus rhythm with sinus arrhythmia, normal axis. Intervals are normal. Q waves present in V1 and V2. Minimal ST elevation present in V1 and V2, not meeting STEMI criteria. Troponin is 1100. EKG sent to cardiology, with consultation over the phone. Patient still having pain despite morphine. She is given nitroglycerin paste as a trial. Recommendations are with EKG changes, elevated troponin, and ongoing symptoms, he would like to take to [facility] this morning. She is given heparin, Plavix, and aspirin. slab worker is on the way to take the patient. Labs 01/27/24 04:38 01/27/24 04:38 Radiology Impressions Chest X-Ray 01/27/24 04:22 IMPRESSION: 1. Mild cardiomegaly. 2. Lingular infiltrate. Recommend follow-up to document resolution. Laboratory Results WBC 17.77 10^3/uL (3.29-11.43) H 01/27/24 04:38 RBC 4.18 10^6/uL (3.85-5.65) 01/27/24 04:38 Hgb 13.10 g/dL (11.27-16.99) 01/27/24 04:38 Hct 39.7 % (36-47) 01/27/24 04:38 MCV 95.0 fl (85-98) 01/27/24 04:38 MCH 31.3 pg (27-33) 01/27/24 04:38 MCHC 33.0 g/dL (30-55) 01/27/24 04:38 RDW 13.1 % (12.1-15.1) 01/27/24 04:38 Plt Count 223 10^3/cmm (157-399) 01/27/24 04:38 MPV 10.5 fL (7.4-10.4) H 01/27/24 04:38 Neut % (Auto) 79.0 % 01/27/24 04:38 Lymph % (Auto) 8.8 % 01/27/24 04:38 [place] % (Auto) 11.7 % 01/27/24 04:38 Eos % (Auto) 0.0 % 01/27/24 04:38 Baso % (Auto) 0.1 % 01/27/24 04:38 Neut # (Auto) 14.03 10^3/uL (1.8-7.7) H 01/27/24 04:38 Lymph # (Auto) 1.6 10^3/uL (0.8-4.8) 01/27/24 04:38 [place] # (Auto) 2.1 10^3/uL (0.2-0.9) H 01/27/24 04:38 Eos # (Auto) 0.0 10^3/uL (0.0-0.8) 01/27/24 04:38 Baso # (Auto) 0.0 10^3/uL (0.0-0.1) 01/27/24 04:38 Nucleated RBC % (auto) 0 % 01/27/24 04:38 Nucleated RBCs # 0.0 /100WBC 01/27/24 04:38 Sodium 138 mmol/L (136-145) 01/27/24 04:38 Potassium 3.6 mmol/L (3.5-5.1) 01/27/24 04:38 Chloride 99 mmol/L (98-107) 01/27/24 04:38 Carbon Dioxide 25 mmol/L (22-29) 01/27/24 04:38 Anion Gap 17.6 (5-19) 01/27/24 04:38 BUN 18 mg/dL (8-23) 01/27/24 04:38 Creatinine 1.0 mg/dL (0.5-0.9) H 01/27/24 04:38 GFR Calculation Not Reportable 01/27/24 04:38 Glucose 169 mg/dL (65-115) H 01/27/24 04:38 Calculated Osmolality 292 mOsm/kg (285-295) 01/27/24 04:38 Calcium 9.7 mg/dL (8.5-10.5) 01/27/24 04:38 Total Bilirubin 0.6 mg/dL (0.15-1.2) 01/27/24 04:38 AST 45 U/L (0-32) H 01/27/24 04:38 ALT 18 U/L (0-33) 01/27/24 04:38 Alkaline Phosphatase 61 U/L (35-105) 01/27/24 04:38 Troponin T Baseline 1163 ng/L (0-10) H* 01/27/24 04:38 NT-Pro-B Natriuret Pep 99527 pg/mL (0-450) H 01/27/24 04:38 Total Protein 6.9 g/dL (6.6-8.7) 01/27/24 04:38 Albumin 4.5 g/dL (3.5-5.2) 01/27/24 04:38 Globulin 2.4 g/dL (1.3-4.6) 01/27/24 04:38 All radiology interpretation(s) finalized by discharge Discharge Plan Discharge Patient Disposition: Admitted As Inpatient Admit Provider: Juan Butts Clinical Impression: Non-ST elevation VT (NSTEMI) Condition: Serious Coding Level of Care Code ED District Plant Engineer for Favio Ann
[2024-01-27] MEDS: aspirin 81 mg Chew Tablet 324 MG PO (05:28)
[2024-01-27] MEDS: clopidogrel 300 mg Tablet 600 MG PO (05:32)
[2024-01-27] MEDS: nitroglycerin 1 gm/inch oint Pkt 0.5 INCH TOPICAL (05:33)
[2024-01-27] MEDS: heparin 5,000 unit/mL INJ 1 mL 4000 UNIT IVP (05:34)
[2024-01-27 05:38] LABS: NT Pro B Type Natriuretic Pept 40896 pg/mL (0-450)
[2024-01-27] MEDS: sodium chloride 0.9% 1,000 ML 999 ML IV (05:44)
--- NOTE | 2024-01-27 05:51 | XACV_ITS ---
Exam Room: [facility] Ht: 160 cm Wt: 68 kg BSA: 1.76 m2 Gender: Female : 1940 Any Known Allergies: No known allergies Exam Priority: Routine Procedure(s): Procedure Description: Diagnostic procedure Procedure Description: PCI procedure Procedure Description: Left Heart Catheterization Procedure Description: Coronary IVUS Procedure Description: Drug Eluting Coronary Stent Procedure Description: PTCA Procedure Description: Miscellaneous Procedure Description: ACT Procedure Description: Coronary Angiography Diagnostic Cath Status: Emergency Diagnostic Findings * INDICATION: Acute/ Subacute VA. * Left Main artery has no significant disease. * Circumflex has no significant disease. * Right Coronary Artery has mild 30% mid vessel stenosis. * Ostial to Proximal Left Anterior Descending: subtotal thormbotic occlusion, BRENNAN: 1 flow. Has another serial 80% stenosis in proximal LAD. * First Obtuse Marginal Branch Segment: severe 90% stenosis, BRENNAN: 3 flow. * Coronary angiography shows right dominance. PCI Status: Emergency PCI Indication: NSTE - ACS Interventional Findings * Procedure detail: We engaged left main artery with XB 3.5 guide catheter. IV heparin was administered to maintain anticoagulation. 0.014 run-through guidewire was used to cross subtotally occluded ostial to proximal LAD stenosis. We predilated the stenosis initially with 2.5 x 12 mm semicompliant balloon. However stent could not be advanced after that. Second lesion in proximal LAD was still tight. We predilated it with 2.75 x 12 mm NC balloon at higher pressure. This allowed placement of 3.0x38mm Resolute baltazar drug eluting stent. IVUS was performed that confirmed overall well expanded stent. We did not aggressively post dilate the stent given risk of distal embolization. At this time final angiogram was performed that showed excellent stent expansion, no residual stenosis and BRENNAN 3 flow. Patient left the metallurgical laboratory assistant in a stable condition. . * Proximal Left Anterior Descendin% stenosis treated with a AB TREK 2.50X12 RX BALLOON, MDT JAKY EUPHORA RX 2.07L20BS BALLOON, and TAPAN Mendes BALTAZAR 3.0X38 ANDRES. 0% residual stenosis, BRENNAN: 3 flow. Conclusions 1. Subtotal thrombotic occlusion of ostial to proximal LAD status post successful revascularization with 1 stent.. 2. Residual large sized OM1 stenosis. We will staged PCI of it later. 3. Proximal Left Anterior Descending was treated with a Balloon, Balloon, and Drug Eluting Stent. Recommendations * Dual antiplatelet therapy with aspirin and plavix for atleast 1 year. * High intensity statin therapy. * We will stage PCI of OM. Decision about inpatient vs outpatient staged intervention based on patient's clinical progress and renal function. * Transfer to ICU. Administer lasix as has very LV EDP. * Obtain echocardiogram. Interventional RX Recommendation: PCI w/o planned CABG Diagnostic RX Recommendation: PCI w/o planned CABG Anticoagulation: Heparin Pressures Phase:Rest AO : 93 / 60 ( 76 ) @ 7:15:00 AM 88 / 50 ( 70 ) @ 7:35:00 AM 92 / 58 ( 74 ) @ 7:45:00 AM 122 / 62 ( 90 ) @ 7:52:00 AM 123 / 63 ( 90 ) @ 7:52:00 AM LV : 115 / 3 / 36 @ 7:52:00 AM 114 / 2 / 32 @ 7:52:00 AM Valves Phase:DefaultPhase AV : 0.0 @ 7:59:49 AM AV Mean Gradient: 0.0 @ 7:59:49 AM Clinical Evaluation EBL: 5mL-10mL Procedural Details Pre-Procedure Time Out. Identified patient by full name and date of as verbalized by the patient/guarantor. Does the consent match the physician's order: N/A Emergent; Informed Consent not obtained due to time critical life threat. Accurate & Complete Informed Consent: N/A Emergent; Informed Consent not obtained due to time critical life threat. Inpatient/Outpatient History & Physical on Chart: N/A Emergent; Informed Consent not obtained due to time critical life threat. If H&P is completed, is and addenduem needed: N/A Emergent; Informed Consent not obtained due to time critical life threat; If yes, is the addendum complete: N/A Emergent; Informed Consent not obtained due to time critical life threat. Visualize and Verify Site with Patient/Guarantor: N/A. Relevant Radiology Images available: N/A Emergent; Informed Consent not obtained due to time critical life threat. Pre-op teaching completed and patient verbalized understanding. The risks, benefits, and alternatives of sedation and/or procedure were discussed by physician. The patient agrees to continue. Procedure started. [facility] Clinical Fraility Score: 4: Vulnerable. Dehydrator Operator Indications: ACS <= 24 hours. Chest Pain Symptom Assessment: Typical Angina Symptoms. Cardiovascular Instability: Yes, if yes, Persistant Ischemic Symptoms. Correct patient, site and procedure confirmed by cath team. Current diagnosis: NSTEMI. PERRLA. Strong, equal hand carbon printer bilaterally. Lungs clear x 5 lobes. IV Site on Arrival: 20 gauge in the left anticubital. IV Fluids: 0.9% NaCl at KVO. 200 mL infused prior to metallurgical laboratory assistant. Oxygen started at 4liters/min via nasal canula. bilateral groins was prepped with chloroprep then draped in the usual sterile fashion. Baseline sample Acquired. HR: 106 BPM. Physician notified. Patient's family unavailable. Equipment: 6F - Femoral. Cardiac Cath Pack. ACIST Manifold Kit Model BT 2000. Heparinized Saline (2 units/mL), 1000 mL bag. Kit, Micropuncture. Physician arrived. Physician scrubbed in. Immediate Pre-Procedure Time Out. Correct Patient: N/A Emergent; Informed Consent not obtained due to time critical life threat; Correct Procedure: N/A Emergent; Informed Consent not obtained due to time critical life threat; Correct Site: N/A Emergent; Informed Consent not obtained due to time critical life threat; Correct Patient Position: N/A Emergent; Informed Consent not obtained due to time critical life threat; Correct Supplies: N/A Emergent; Informed Consent not obtained due to time critical life threat; Dried Flammable Prep: N/A Emergent; Informed Consent not obtained due to time critical life threat; Blood Products Available: N/A Emergent; Informed Consent not obtained due to time critical life threat;. Lidocaine 1% infiltrated to the right groin. Arterial access obtained with micropuncture set. 6 northern irish XB 3.5 guide catheter was inserted over the wire. Cineography of the LCA performed. Runthrough guidewire was advanced through the guide catheter to the OM. A 2nd Runthrough guidewire was advanced through the guide catheter to lesion in the prox LAD. OM Runthrough Wire out. Inflation number : 1 A AB TREK 2.50X12 RX BALLOON was prepped and advanced across the Prox LAD , then inflated to 8 YAMILE for 0:11 seconds. Inflation number: 2 The AB TREK 2.50X12 RX BALLOON was reinflated across the Prox LAD, to 8 YAMILE for 0:10 seconds. Inflation number: 3 The AB TREK 2.50X12 RX BALLOON was reinflated across the Prox LAD, to 6 YAMILE for 0:11 seconds. Balloon out. Results checked. Baltazar 3.0 x 38 inserted OTW, unable to cross, removed intact. Guideliner in OTW. [place] 3.0 x 38 inserted OTW, unable to cross, removed intact. Inflation number : 4 A MDT NC EUPHORA RX 2.28X23YM BALLOON was prepped and advanced across the Prox LAD , then inflated to 14 YAMILE for 0:13 seconds. Inflation number: 5 The MDT NC EUPHORA RX 2.94Q14IC BALLOON was reinflated across the Prox LAD, to 12 YAMILE for 0:11 seconds. Inflation number: 6 The MDT NC EUPHORA RX 2.29M10BQ BALLOON was reinflated across the Prox LAD, to 12 YAMILE for 0:11 seconds. Inflation number: 7 The MDT NC EUPHORA RX 2.98M80TR BALLOON was reinflated across the Prox LAD, to 12 YAMILE for 0:06 seconds. Inflation number: 8 The MDT NC EUPHORA RX 2.15G65DL BALLOON was reinflated across the Prox LAD, to 16 YAMILE for 0:11 seconds. Balloon out. Inflation Number : 9 A MDT Cinthya BALTAZAR 3.0X38 ANDRES -Lot Number# [id number] prepped and advanced across the Prox LAD. The stent was deployed at 12 YAMILE for 0:25 seconds. Exp. 2026-11-05. Stent balloon out over wire. ACT drawn. Results 364 seconds. Therapeutic limits - pre-heparin administration 90-150 seconds and monitoring heparin during a vascular procedure >250 seconds. IVUS catheter in. IVUS run performed. IVUS catheter out. Results checked. Family arrived and updated by Luke Whelan RN, TRAVEL MED SURG RN in the metallurgical laboratory assistant waiting room. Wire out. Guide catheter out. A 5 northern irish JR4 catheter in over wire. Multiple views taken of right coronary artery. Catheter redirected to the LV. EDP Sample taken: LV 115/3,36; HR: 86 BPM; SpO2: 98%. Pullback taken: LV 114/2,32; AO 122/62(90); Mean: 0mmHg, Peak to Peak: 0mmHg, SEP: 3sec/min; HR: 84 BPM; SpO2: 98%. ACT drawn. Results seconds. Therapeutic limits - pre-heparin administration 90-150 seconds and monitoring heparin during a vascular procedure >250 seconds. Catheter removed over the standard wire. A Right femoral angiogram was performed to determine safe placement of closure device. A Angio-Seal VIP ([facility]) was successful obtaining hemostatsis at the Right Femoral artery insertion site. Lot #[id number]. exp 2024-07-30. Angioseal placed without complications. No signs or symptoms of hematoma noted. Sterile dressing applied per usual sterile fashion. Post Procedure: bilateral dorsalis pedis pulse Doppled. Post Procedure: bilateral posterior tibial pulse Doppled. PERRLA. Strong, equal hand carbon printer bilaterally. No VTE prophylaxis required. Medication's Wasted: Lidocaine 1% = 5 mL. Medication's Wasted: Heparin = 3000 units. Medication's Wasted: Other = Versed 1.5 mg. Medication's Wasted: Other = Fentanyl 100 mcg. Medication's Wasted: Other = Lasix 60 mg. Total IV fluids: 100 mL. PCI Indication: NSTE. Post-op diagnosis: S/P PCI of the Prox LAD. Complications: none. Estimated blood loss: 5mL-10mL. Responsiveness - Normal response to verbal stimuli; alert and oriented, PERRLA. Airway - Unaffected, no intervention required; spontaneous ventilation. Circulation: W/N/L, pulses unchanged. Nausea/Vomiting: No. Procedure completed. Patient transferred by bed to ICU. Vital chart was stopped. Access Site Site: Right Femoral artery Sheath Size: 6 Fr Hemostasis Method: Angio-Seal VIP ([facility]) Hemostasis Success: Successful Procedure Medications Start: 6:09 AM Stop: 6:09 AM Medication: Versed Amount: 0.5 mg Route: I.V. Start: 6:12 AM Stop: 6:12 AM Medication: Heparin Amount: 3000 units Route: I.V. Start: 6:56 AM Stop: 6:56 AM Medication: Lasix (furosemide) Amount: 40 mg Route: I.V. I, the attending physician, have reviewed and verified all procedure medications. Yes, all medications given per verbal order Report Signatures Finalized by Juan Butts MD on 01/27/2024 04:57 PM
--- NOTE | 2024-01-27 05:53 | P.HP_ITS ---
Providers/Chief Complaint 2 Admitting Physician: Juan Butts MD Primary Care Provider: JUDY Boss Chief Complaint: muscle spasms in back and neck &shoulder blade History of Present Illness Yazmin Joiner is a 83 year old female with past medical history of hypertension who has been having on and off back pain for 3 to 4 weeks. Yesterday it got worse. Has been constant since yesterday afternoon. Some radiation to the arms. EKG showing borderline ST elevation in leads V1 V2 with q waves. Initial troponin is over 1100. Denies chest pain. Has shortness of breath that she feels started after morphine. Cardiology contacted 5:23 AM and parking lot laborer emergently activated. Review of Systems 2 Const: Denies: fever(s) Card: Denies: chest pain Resp: Reports: dyspnea Musc: Reports: joint pain (right shoulder); Denies: joint swelling, joint stiffness or limited range of motion Neuro: Denies: dizziness Medications/Allergies Home Medications Medication Instructions Recorded Confirmed Last Taken Type miconazole nitrate 2 % topical 1 applic topical BID #14 grams 10/25/22 01/26/24 Unknown Rx cream (Antifungal (miconazole)) [id number] 3.3 4 drp otic (ear) TID #10 mL 10/18/23 01/26/24 Unknown Rx mg-3 mg-10 mg-0.5 mg/mL ear drops,susp (Cortisporin-TC) alendronate 70 mg tablet See Rx Instructions .Route 01/09/24 01/26/24 Unknown Rx .COMPLEX #12 tabs furosemide 20 mg tablet See Rx Instructions .Route 01/09/24 01/26/24 Unknown Rx .COMPLEX #180 tabs levothyroxine 50 mcg tablet See Rx Instructions .Route 01/09/24 01/26/24 Unknown Rx .COMPLEX #90 tabs lisinopril 40 mg tablet See Rx Instructions .Route 01/09/24 01/26/24 Unknown Rx .COMPLEX #90 tabs metoprolol tartrate 100 mg tablet See Rx Instructions .Route 01/09/24 01/26/24 Unknown Rx .COMPLEX #90 tabs baclofen 10 mg tablet 10 mg PO DAILY 10 days #10 tabs 01/26/24 01/26/24 Unknown Rx prednisone 10 mg tablet 10 mg PO BID 3 days #6 tabs 01/26/24 01/26/24 Unknown Rx Allergies Allergy/AdvReac Type Severity Reaction Status Date / Time No Known Allergies Allergy Verified 01/26/24 07:02 PFSH Acute 2 PFSH: Medical History Hyperlipidemia Osteoporosis HTN (hypertension) Hypothyroidism Family History Father Hypertension Social History Smoking and tobacco/nicotine status: never used tobacco/nicotine Lives independently: Yes Housing: House Marital status: / Vitals/I&O/Wt Last Vital Signs Temp 97.7 F 01/26/24 23:23 Pulse 96 01/27/24 05:45 Resp 22 H 01/27/24 05:45 BP 134/71 01/27/24 05:45 Pulse Ox 93 01/27/24 05:45 O2 Del Method Nasal Cannula 01/27/24 05:45 O2 Flow Rate 3 01/27/24 05:45 Weight last 48 hrs Weight 151 lb Physical Exam 2 Narrative: GENERAL: Patient is alert, awake and oriented x3. [] NECK: No jugular vein distension. [] HEENT: No cyanosis. No icterus. No pallor. [] HEART: Regular S1 and S2. No murmur, rub or gallop. [] LUNGS: Clear to auscultate bilaterally. [] CENTRAL NERVOUS SYSTEM: Grossly nonfocal. [] EXTREMITIES: Lower extremities with 1+ edema bilaterally. Data 01/27/24 04:38 01/27/24 04:38 A&P Assessment and plan (1) Myocardial infarction: (2) CHF (congestive heart failure): (3) Hyperlipidemia: Qualifiers: Hyperlipidemia type: mixed hyperlipidemia Qualified Code(s): E78.2 - Mixed hyperlipidemia (4) HTN (hypertension): Qualifiers: Hypertension type: unspecified Qualified Code(s): I10 - Essential (primary) hypertension Plan Patient has been having upper back pain for over 12 hours. Initial troponin is over 1100. EKG has septal lead changes with borderline ST elevation. Q waves seen. Cardiac Senior Power Plant Operator emergently activated with on going symptoms going emergently to parking lot laborer. Presentation is consistent with subacute ID. Patient received aspirin, plavix and heparin bolus We will obtain echocardiogram post procedure. Attestations 2 Medical Necessity Statement*: Care expected to cross 2 midnights. Patient has presented with upper back pain/ EKG changes consistent with ID. Plan for coronary angiogram emergently. Coding Level of Care Code Acute Code for g Fwd Diagnoses Myocardial infarction I21.9 CHF (congestive heart failure) I50.9 Mixed hyperlipidemia E78.2 Hyperlipidemia type: mixed hyperlipidemia Hypertension, unspecified type I10 Hypertension type: unspecified
--- NOTE | 2024-01-27 06:23 | ECG_ITS ---
[facility] Test Date: 2024-01-27 Pat Name: Yazmin Joiner Department: Room: ICU08 Gender: Female Emerging Technologies Director: : 1940 Requested By: Mario Vyas Order Number: [id number] Maximilian MD: Juan Butts M.D. Measurements Intervals [place] Rate: 94 P: 54 [place]: 199 QRS: -60 QRSD: 107 T: 96 QT: 385 QTc: 483 Interpretive Statements SINUS RHYTHM PATTERN CONSISTENT WITH PULMONARY DISEASE LEFT ANTERIOR FASCICULAR BLOCK [QRS AXIS <= -45, QR IN I, RS IN II] MODERATE VOLTAGE CRITERIA FOR LVH, CONSIDER NORMAL VARIANT [MEETS CRITERIA IN ONE OF: R(aVL), S(V1), R(V5), R(V5/V6)+S(V1)] POSSIBLE SEPTAL MYOCARDIAL INFARCTION , PROBABLY RECENT [30 ms Q WAVE IN V1/V2] Compared to ECG 01/27/2024 04:49:41 Left anterior fascicular block now present Left-axis deviation no longer present ST (T wave) deviation no longer present Myocardial infarct finding still present Electronically Signed On 01-27-2024 7:58:34 CDT by Juan Butts M.D. [email or web address] [email or web address] [facility].Phenomix/store/[id number]
--- NOTE | 2024-01-27 07:16 | USCV_ITS ---
Yazmin Joiner Age: 83 Gender: F : 1940 Exam Date: 01/27/2024 08:56 Ordering Phys: Juan Butts M.D ([email or web address]) Technologist: Romeo Marquez [place] [facility] [place]: [place] BP: 110 / 67 HR: 79 Rhythm: Sinus Technical Quality: Adequate MEASUREMENTS (Male / Female) Normal Values 2D ECHO LV Diastolic Diameter PLAX 4.4 cm 4.2 - 5.9 / 3.9 - 5.3 cm IVS Diastolic Thickness 1.0 cm 0.6 - 1.0 / 0.6 - 0.9 cm IVS Systolic Thickness 1.1 cm LVPW Diastolic Thickness 1.8 cm 0.6 - 1.0 / 0.6 - 0.9 cm LVPW Systolic Thickness 2.4 cm LVOT Diameter 2.0 cm LV Ejection Fraction 2D Teich 33.8 % LV Ejection Fraction MOD 4C 41.0 % LV Ejection Fraction MOD 2C 32.0 % LV Ejection Fraction 2C AL 35.3 % LA Diameter 3.7 cm Aorta at Sinotubular Diameter 2.6 cm IVC Diameter 3.0 cm M-MODE LA Ao Ratio MM 0.9 AV Cusp Separation MM 1.7 cm DOPPLER AV Peak Velocity 99.0 cm/s LVOT Peak Velocity 81.0 cm/s AV Area Cont Eq vti 2.6 cm squared AV Area Cont Eq pk 2.6 cm squared MV Peak Velocity 128.0 cm/s MV Area PHT 6.1 cm squared Mitral E to A Ratio 0.9 TV Peak Velocity 296.0 cm/s TR Peak Velocity 304.0 cm/s TR Peak Gradient 37.0 mmHg TR Mean Velocity 235.0 cm/s TR Mean Gradient 23.3 mmHg TR Velocity Time Integral 106.7 cm PV Peak Velocity 56.0 cm/s RV Ejection Time 0.3 s FINDINGS Left Ventricle Left ventricle is normal size. LV systolic function is severely reduced with EF of 30 to 35%. Severe global hypokinesis. Moderate global hypokinesis with severe hypokinesis to akinesis of apical, anterolateral and apical anterior [place]. Grade 1 diastolic dysfunction. Right Ventricle Normal in size and function Right Atrium Normal in size Left Atrium Dilated Mitral Valve Structurally normal mitral valve. Aortic Valve Structurally noraml aortic valve. Mild aortic regurgitation. Tricuspid Valve Mild tricuspid regurgitation. RVSP is 35-40mmHg. This is consistent with mild pulmonary hypertension. Pulmonic Valve Not well visualized Pericardium Normal Aorta Normal in size IVC Dilated CONCLUSIONS LV systolic function is severely reduced with EF of 30 to 35%. Grade 1 diastolic dysfunction Above-mentioned regional wall motion abnormalities. Left atrial dilation Mild aortic regurgitation Mild tricuspid regurgitation Mild pulmonary hypertension IVC is dilated Compared to prior echocardiogram from 2022, LV systolic function is significantly lower now. Juan Butts MD (Electronically Signed) Final Date: 27 January 2024 10:23 S
[2024-01-27] MEDS: metoprolol succinate ER (24 HR) 25 mg Tablet PO (08:13)
[2024-01-27] MEDS: aspirin 81 mg EC Tablet PO (08:13)
[2024-01-27] MEDS: clopidogrel 75 mg Tablet PO (08:13)
[2024-01-27] MEDS: levothyroxine 50 mcg Tablet PO (08:13)
[2024-01-27 09:03] LABS: Troponin 5 2HR 2890 ng/L (0-10); Troponin 5 2HR Delta 1727 ABS# (0-10)
[2024-01-27] MEDS: perflutren protein-a microsphr 0.22 mg/mL SDV 3 mL IV (09:53)
--- NOTE | 2024-01-27 10:28 | ECG_ITS ---
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 Measurements Intervals [place] Rate: 76 P: 56 [place]: 181 QRS: -62 QRSD: 110 T: 100 QT: 427 QTc: 481 Interpretive Statements SINUS RHYTHM LEFT ANTERIOR FASCICULAR BLOCK [QRS AXIS <= -45, QR IN I, RS IN II] MODERATE VOLTAGE CRITERIA FOR LVH, CONSIDER NORMAL VARIANT [MEETS CRITERIA IN ONE OF: R(aVL), S(V1), R(V5), R(V5/V6)+S(V1)] NONSPECIFIC T-WAVE ABNORMALITY Compared to ECG 01/27/2024 07:54:56 T-wave abnormality now present Myocardial infarct finding no longer present Electronically Signed On 01-27-2024 10:36:25 CDT by Juan Butts M.D. [id number]
[2024-01-27 11:39] LABS: Troponin 5 6HR 3879 ng/L (0-10); Troponin 5 6HR Delta 2716 ng/L (0-12)
[2024-01-27] MEDS: norepinephrine 4 MG/250 ML BAG 7.5 MG IV (14:20)
--- NOTE | 2024-01-27 14:20 | PC.NURSE ---
Dr. Butts notified of decrease in patients blood pressure over span of one hour. No bleeding from femoral site no hematoma formation. Patient is resting in bed, responsive to sternal rub, difficult to wake. Patient in trendelenburg with MAP of 44. Telephone order received for norepinephrine with MAP goal 65 or greater.
--- NOTE | 2024-01-27 19:04 | ECG_ITS ---
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 Measurements Intervals [place] Rate: 119 P: 0 PA: 0 QRS: -61 QRSD: 102 T: 96 QT: 310 QTc: 437 Interpretive Statements ATRIAL FIBRILLATION WITH RAPID VENTRICULAR RESPONSE LEFT ANTERIOR FASCICULAR BLOCK [QRS AXIS <= -45, QR IN I, RS IN II] MODERATE VOLTAGE CRITERIA FOR LVH, CONSIDER NORMAL VARIANT [MEETS CRITERIA IN ONE OF: R(aVL), S(V1), R(V5), R(V5/V6)+S(V1)] NONSPECIFIC T-WAVE ABNORMALITY Compared to ECG 01/27/2024 10:28:26 Sinus rhythm no longer present T-wave abnormality still present Electronically Signed On 01-27-2024 21:53:49 CDT by Juan Butts M.D. [email or web address] [id number]
--- NOTE | 2024-01-27 19:17 | PC.NURSE ---
Dr. Butts called for cardiac changes on monitor,patient asymptomatic. Verbal order to reduce levophed. Dr. Butts to review bedside EKG.
[2024-01-27] MEDS: amiodarone 150 MG/100 ML PREMIX 400 MG IV (20:05)
--- NOTE | 2024-01-27 20:35 | ECG_ITS ---
[facility] Test Date: 2024-01-27 Pat Name: Yazmin Joiner Department: Room: ICU08 Gender: Female Agricultural Appraiser: : 1940 Requested By: Juan Butts Order Number: [id number] Maximilian MD: Juan Butts M.D. Measurements Intervals [place] Rate: 88 P: 42 ND: 132 QRS: -65 QRSD: 105 T: 91 QT: 382 QTc: 463 Interpretive Statements SINUS RHYTHM PATTERN CONSISTENT WITH PULMONARY DISEASE LEFT ANTERIOR FASCICULAR BLOCK [QRS AXIS <= -45, QR IN I, RS IN II] LEFT VENTRICULAR HYPERTROPHY AND ST-T CHANGE [VOLTAGE CRITERIA PLUS ST/T ABNORMALITY] POSSIBLE SEPTAL MYOCARDIAL INFARCTION , OF INDETERMINATE AGE [30 ms Q WAVE IN V1/V2] Compared to ECG 01/27/2024 19:10:33 ST (T wave) deviation now present Myocardial infarct finding now present Atrial fibrillation no longer present T-wave abnormality no longer present Electronically Signed On 01-27-2024 21:54:33 CDT by Juna Butts M.D. [id number]
--- NOTE | 2024-01-27 20:52 | PC.NURSE ---
Called Dr. Butts at home to report patient has converted back to SR rate 80-90. Also reported Patient's temp of 101.4. Dr. Butts stated he will contact hospitalist to consult.
--- NOTE | 2024-01-27 21:20 | XRR_ITS ---
PROCEDURE INFORMATION: Exam: XR Chest Exam date and time: 01/27/2024 9:34 PM Age: 83 years old Clinical indication: Patient HX: Fever of unknown origin; Sepsis; Additional info: Sepsis, evaluate for source TECHNIQUE: Imaging protocol: Radiologic exam of the chest. Views: 1 view. COMPARISON: CR (CHEST, ) 01/27/2024 5:18 AM FINDINGS: Lungs: Moderate interstitial coarsening, stable compared to prior imaging. Possible worsening areas of atelectasis in the left lung base. No consolidation. Pleural spaces: No pleural effusion or pneumothorax. Heart/Mediastinum: Heart size is within normal limits. Vasculature: Atherosclerotic calcifications of the aorta are noted. Bones/joints: Unremarkable. XR/XR chest 1V portable [id number] IMPRESSION: 1. Possible worsening areas of atelectasis in the left lung base. 2. Otherwise stable radiographic appearance of the chest compared to prior.
--- NOTE | 2024-01-27 21:21 | P.CONIM_ITS ---
Providers/Reason For Consult 2 Consulting Physician/Specialty*: Asael Mccord/internal medicine Reason for Consult*: Fever Attending Physician: Juan Butts M.D Primary Care Provider: JUDY Boss History of Present Illness History of Present Illness Yazmin Joiner is a 83 year old female with a past medical history significant for hypertension, hyperlipidemia, hypothyroidism, heart failure with preserved ejection fraction, moderate pulmonary hypertension, and multiple other comorbidities who presented to the emergency department this morning with back neck and shoulder pain, found to have myocardial infarction. Patient admitted to cardiology and underwent heart catheterization revealing culprit lesion in the ostial to proximal LAD for which PCI and stent was placed. Patient was found to have newly diagnosed atrial fibrillation with rapid ventricular rate for which she has been treated with IV amiodarone with conversion to sinus rhythm. Postprocedure course complicated by shock for which she is currently on Levophed. Patient found to have fevers for which internal medicine has been consulted for further workup. Upon assessment, patient is awake and alert. She reports she was having upper back pain/spasm for the past 4 weeks prior to admission. She denies any chills, nausea, shortness of breath or cough. Review of Systems 2 Narrative: A complete review of systems was obtained and is negative except as stated in HPI. Medications/Allergies Home Medications Medication Instructions Recorded Confirmed Last Taken Type miconazole nitrate 2 % topical 1 applic topical BID #14 grams 10/25/22 01/26/24 Unknown Rx cream (Antifungal (miconazole)) [id number] 3.3 4 drp otic (ear) TID #10 mL 10/18/23 01/26/24 Unknown Rx mg-3 mg-10 mg-0.5 mg/mL ear drops,susp (Cortisporin-TC) alendronate 70 mg tablet See Rx Instructions .Route 01/09/24 01/26/24 Unknown Rx .COMPLEX #12 tabs furosemide 20 mg tablet See Rx Instructions .Route 01/09/24 01/26/24 Unknown Rx .COMPLEX #180 tabs levothyroxine 50 mcg tablet See Rx Instructions .Route 01/09/24 01/26/24 Unknown Rx .COMPLEX #90 tabs lisinopril 40 mg tablet See Rx Instructions .Route 01/09/24 01/26/24 Unknown Rx .COMPLEX #90 tabs metoprolol tartrate 100 mg tablet See Rx Instructions .Route 01/09/24 01/26/24 Unknown Rx .COMPLEX #90 tabs baclofen 10 mg tablet 10 mg PO DAILY 10 days #10 tabs 01/26/24 01/26/24 Unknown Rx prednisone 10 mg tablet 10 mg PO BID 3 days #6 tabs 01/26/24 01/26/24 Unknown Rx Allergies Allergy/AdvReac Type Severity Reaction Status Date / Time No Known Allergies Allergy Verified 01/26/24 07:02 Current Medications Generic Name Dose Route Start Last Admin Trade Name Daniel PRN Reason Stop Dose Admin Aspirin 81 mg 01/27/24 09:00 01/27/24 08:13 Aspirin 81 Mg Ec Tablet PO 81 mg DAILY SARAY Administration Clopidogrel Bisulfate 75 mg 01/27/24 09:00 01/27/24 08:13 Clopidogrel 75 Mg Tablet PO 75 mg DAILY SARAY Administration Furosemide 40 mg 01/27/24 18:45 01/27/24 17:06 Furosemide 10 Mg/Ml Sdv 4ml IVP Not Given Q12H SARAY Norepinephrine Bitartrate 4 mg in 250 mls @ 0 mls/hr 01/27/24 14:15 01/27/24 19:15 Levophed IV 6 mcg/min .Q0M SARAY 22.5 mls/hr Titration Protocol Per Protocol Amiodarone HCl/Dextrose 360 mg in 200 mls @ 0 mls/hr 01/27/24 19:30 01/27/24 20:16 Nexterone IV 1 mg/min .Q0M SARAY 33.33 mls/hr Administration Protocol Per Protocol Levothyroxine Sodium 50 mcg 01/27/24 09:00 01/27/24 08:13 Levothyroxine 50 Mcg Tablet PO 50 mcg DAILY SARAY Administration Metoprolol Succinate 25 mg 01/27/24 09:00 01/27/24 08:13 Metoprolol Succinate Er (24 Hr) 25 Mg Tablet PO 25 mg DAILY SARAY Administration PFSH Acute 2 PFSH: Medical History Hyperlipidemia Osteoporosis HTN (hypertension) Hypothyroidism Surgical History History of left heart catheterization Family History Father Hypertension Social History Smoking and tobacco/nicotine status: never used tobacco/nicotine Lives independently: Yes Housing: House Marital status: / Vitals/I&O/Wt Last Vital Signs Temp 97.6 F 01/27/24 12:36 Pulse 83 01/27/24 14:46 Resp 16 01/27/24 14:15 BP 84/48 01/27/24 14:15 Pulse Ox 91 01/27/24 14:15 O2 Del Method Nasal Cannula 01/27/24 14:15 O2 Flow Rate 1 01/27/24 14:15 01/27/24 01/27/24 01/27/24 06:59 14:59 22:59 Intake Total 3.625 / 3.625 112.75 / 116.375 Output Total 700 / 700 Balance 3.625 / 3.625 -587.25 / -583.625 Weight last 48 hrs Weight 68.492 kg Weight 68.492 kg Physical Exam 2 Narrative: General: Patient is awake and alert. Very pleasant. Head: Normocephalic. Atraumatic. EOM intact. Neck: No JVD. Cardiovascular: Regular rate. No gallops. No murmurs. Hypotensive on Levophed. Lungs: Slightly tachypneic. Breath sounds are slightly diminished bilateral bases. No wheezing or crackles. On 1 L nasal cannula support. Skin: No jaundice. No rashes. Abdomen: Normal bowel sounds, abdomen soft and nontender. Genito Urinary: Genital exam not performed since complaints not related. Rectal: Rectal exam not performed since no symptoms indicated blood loss. Extremities: No cyanosis or clubbing. Musculoskeletal: No swollen or erythematous joints. Neurological: Moves all 4 extremities. No myoclonus. Urinary Catheter Management: Siddiqui: Cath Placed During This Visit: yes Reason for Continuing Indwelling Catheter: Accurate Measurement of Urinary Output in Critically Ill Patients Urinary Catheter Date of Insertion: 01/27/24 Urinary Catheter Time of Insertion: 13:47 Data 01/27/24 04:38 01/27/24 04:38 A&P Assessment and plan (1) Shock: Patient currently in shock requiring Levophed support Differential includes cardiogenic and septic shock Continue vasopressor for MAP goal of 65 mmHg Sepsis workup with blood cultures, chest x-ray, and urinalysis SIRS: Leukocytosis, tachycardia, febrile Source: Suspected pneumonia given lingula infiltrate this morning on imaging Procalcitonin and MRSA screening requested Hold off on IV fluid bolus due to ischemic cardiomyopathy and reduced ejection fraction Start vancomycin, pharmacy to dose Start cefepime (2) Non-ST elevation [place] (NSTEMI): Coronary artery disease with ischemic cardiomyopathy Status post PCI with stent placement on 01/26 On dual antiplatelet therapy with aspirin and Plavix On high intensity statin Beta-abel currently ordered, monitor hemodynamics (3) CHF (congestive heart failure): Acute systolic heart failure with reduced ejection fraction with EF of 30 to 30% Acute on chronic diastolic heart failure exacerbation Echo from earlier today reviewed Strict I's and O's Daily weights IV Lasix currently ordered, monitor hemodynamics (4) Atrial fibrillation: Newly diagnosed atrial fibrillation with rapid ventricular rate Started on amiodarone drip Has converted to normal sinus rhythm (5) Hypothyroidism: TSH 3.42 in September 2023, repeat level in a.m. 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 Internal medicine service will continue to follow. 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
[2024-01-27] MEDS: atorvastatin 40 mg Tablet PO (21:55)
[2024-01-27 22:23] LABS: Bilirubin Urine Negative (Negative); Blood Urine 3+ (Negative); Glucose Urine UA Negative (Normal); Ketones Urine Negative (Negative); Leukocyte Esterase Urine Negative (Negative); Nitrate Urine Negative (Negative); Protein Urine 1+ (Negative); Urine Appearance Cloudy (CLEAR); Urine Color Yellow (Yellow)
[2024-01-27 22:26] LABS: Hyaline Casts Urine 18.18 /lpf; RBC Urine 21-50 /hpf (0-2); Squamous Epithelial Cell Urine 0-5 /hpf (0-5)
[2024-01-27 22:49] LABS: Add Urine Culture? Yes; Bacteria Urine 1+ /hpf; UA Slide Review UA Slide Review Perf
[2024-01-27] MEDS: norepinephrine 4 MG/250 ML BAG 22.5 MG IV (23:06)
[2024-01-27] MEDS: cefepime 2,000 mg SDV 2000 MG IV (23:22)
[2024-01-27] MEDS: vancomycin 1,000 MG in sodium chloride 0.9% 250 ML 125 MG IV (23:30)
[2024-01-27 23:35] LABS: Procalcitonin 0.43 ng/mL (0-0.5)
[2024-01-28] VITALS (73 sets, daily range): BP systolic 70–136; BP diastolic 48–101; PULSE 71–117; RESP 14–34; TEMP 37.2–37.8; O2SAT 90–98; BMI 29.7
[2024-01-28 04:19] LABS: Basophils % 0.3 %; Eosinophils % 0.2 %; Hematocrit 35.4 % (36-47); Lymphocytes # 3.1 10^3/uL (0.8-4.8); Lymphocytes % 21.5 %; Mean Corpuscular HGB Conc 32.5 g/dL (30-55); Mean Corpuscular Volume 95.4 fl (85-98); Mean Platelet Volume 10.9 fL (7.4-10.4); Monocytes # 2.5 10^3/uL (0.2-0.9); Monocytes % 17.5 %; Neutrophils # 8.68 10^3/uL (1.8-7.7); Neutrophils % 60.1 %; Nucleated Red Blood Cells % 0 %; Platelet Count 208 10^3/cmm (157-399); Red Blood Count 3.71 10^6/uL (3.85-5.65); Red Cell Distribution Width 13.6 % (12.1-15.1); White Blood Count 14.44 10^3/uL (3.29-11.43)
[2024-01-28 04:42] LABS: Anion Gap 16.4 (5-19); Blood Urea Nitrogen 21 mg/dL (8-23); Calcium 8.6 mg/dL (8.5-10.5); Carbon Dioxide 25 mmol/L (22-29); Chloride 99 mmol/L (98-107); Glucose 145 mg/dL (65-115); Osmolality Calculated 290 mOsm/kg (285-295); Potassium 3.4 mmol/L (3.5-5.1); Sodium 137 mmol/L (136-145)
[2024-01-28 04:46] LABS: Thyroid Stimulating Hormone 1.49 uIU/mL (0.27-4.20)
[2024-01-28] MEDS: aspirin 81 mg EC Tablet PO (08:06)
[2024-01-28] MEDS: clopidogrel 75 mg Tablet PO (08:06)
[2024-01-28] MEDS: FUROsemide 10 mg/mL SDV 4mL 40 MG IVP ×2 (08:06→20:18)
[2024-01-28] MEDS: levothyroxine 50 mcg Tablet PO (08:06)
--- NOTE | 2024-01-28 10:02 | P.PN_ITS ---
Subjective 2 Subjective: Patient is doing better. No chest pain. Vitals/I&O/Wt Last Vital Signs Temp 99.4 F 01/27/24 22:00 Pulse 71 01/28/24 07:35 Resp 24 H 01/27/24 22:00 BP 91/48 01/27/24 22:00 Pulse Ox 95 01/28/24 07:35 O2 Del Method Nasal Cannula 01/28/24 07:35 O2 Flow Rate 2 01/28/24 07:35 01/27/24 01/28/24 01/28/24 22:59 06:59 14:59 Intake Total 262.75 / 266.375 286.625 / 553.000 304.375 / 304.375 Output Total 700 / 700 350 / 1050 Balance -437.25 / -433.625 -63.375 / -497.000 304.375 / 304.375 Weight last 48 hrs Weight 168 lb 3 oz Weight 151 lb Weight 151 lb Physical Exam 2 Narrative: GENERAL: Patient is alert, awake and oriented x3. [] NECK: No jugular vein distension. [] HEENT: No cyanosis. No icterus. No pallor. [] HEART: Regular S1 and S2. No murmur, rub or gallop. [] LUNGS:Mild bilateral crackles. CENTRAL NERVOUS SYSTEM: Grossly nonfocal. [] EXTREMITIES: Lower extremities with 1+ edema bilaterally. Urinary Catheter Management: Siddiqui: Cath Placed During This Visit: yes Reason for Continuing Indwelling Catheter: Accurate Measurement of Urinary Output in Critically Ill Patients Urinary Catheter Date of Insertion: 01/27/24 Urinary Catheter Time of Insertion: 13:47 Data 01/28/24 03:54 01/28/24 03:54 Micro: Microbiology 01/27/24 21:40 Bacterial Antigens - Final Urine Kidney 01/27/24 22:46 Blood Culture - Preliminary Blood SPECIMEN COLLECTED 01/27/24 22:40 Blood Culture - Preliminary Blood SPECIMEN COLLECTED A&P Assessment and plan (1) Myocardial infarction: (2) CHF (congestive heart failure): (3) Hyperlipidemia: Qualifiers: Hyperlipidemia type: mixed hyperlipidemia Qualified Code(s): E78.2 - Mixed hyperlipidemia (4) HTN (hypertension): Qualifiers: Hypertension type: unspecified Qualified Code(s): I10 - Essential (primary) hypertension (5) Non-ST elevation [place] (NSTEMI): (6) LANA (acute kidney injury): (7) Shock: (8) Atrial fibrillation: Plan Patient had successful PCI of subtotally occluded ostial proximal LAD with 1 stent. Has residual large sized OM stenosis that will be treated as a staged PCI later. She went into shock yesterday. Requiring Levophed. However improving with decreasing needs for pressor support. She went into atrial fibrillation as well. Was in RVR. Was put on amiodarone. Intermittent conversion back to sinus rhythm. Heart rate is controlled now. Continue dual antiplatelet therapy with aspirin and Plavix. High intensity statin therapy. We will hold beta-abel therapy given shock. Patient had an episode of fever. Medicine team was consulted. On empiric antibiotics per hospitalist team. Appreciate recommendations. Creatinine has increased today. She had very high LVEDP, we will continue cautious diuresis. Close I and Os. Monitor renal function ECHO shows severe LV dysfunction with EF of 30-35%. Once cardiogenic shock resolves, we will start beta abel/ARB therapy Continue ICU monitoring. Attestations 2 Medical Necessity Statement*: Care expected to cross 2 midnights. Patient had presented with high risk NSTEMI and PCI of proximal LAD with 1 stent. She went into shock and requiring ICU stay. Coding Level of Care Code Acute Code for [facility] Diagnoses Myocardial infarction I21.9 CHF (congestive heart failure) I50.9 Mixed hyperlipidemia E78.2 Hyperlipidemia type: mixed hyperlipidemia Hypertension, unspecified type I10 Hypertension type: unspecified Non-ST elevation [place] (NSTEMI) I21.4 LANA (acute kidney injury) N17.9 Shock R57.9 Atrial fibrillation I48.91
--- NOTE | 2024-01-28 10:08 | CTR_ITS ---
PROCEDURE INFORMATION: Exam: CT Abdomen And Pelvis Without Contrast Exam date and time: 01/28/2024 11:06 AM Age: 83 years old Clinical indication: Other: Shock, sepsis, UTI, pna TECHNIQUE: Imaging protocol: Computed tomography of the abdomen and pelvis without contrast. Radiation optimization: All CT scans at this facility use at least one of these dose optimization techniques: automated exposure control; mA and/or kV adjustment per patient size (includes targeted exams where dose is matched to clinical indication); or iterative reconstruction. COMPARISON: CR (CHEST, ) 01/27/2024 9:34 PM RADIATION DOSE METRICS: Total DLP (mGy-cm): 727.83 FINDINGS: Lungs: See Pleural spaces finding. Pleural spaces: There are small bilateral pleural effusions. There is airspace disease at both lung bases which may reflect atelectasis, pneumonia or a combination. There are small low-density lesions within the liver likely representing small cysts. The liver otherwise has a normal noncontrast appearance. Liver: See Pleural spaces finding. Gallbladder and biliary ducts: There are surgical clips within the gallbladder fossa. Pancreas: Normal. No ductal dilation. Spleen: Normal. No splenomegaly. Adrenal glands: Normal. No mass. Kidneys and ureters: Normal. No hydronephrosis. Stomach and bowel: There are scattered colonic diverticula. No large bowel wall thickening is appreciated. No dilated loops of large or small bowel is appreciated. Appendix: No evidence of appendicitis. Intraperitoneal space: Unremarkable. No free air. No significant fluid collection. Vasculature: The aorta is normal in caliber. There is calcified plaque involving the aorta and its branch vessels. Lymph nodes: Unremarkable. No enlarged lymph nodes. Urinary bladder: There is a Siddiqui catheter within a decompressed urinary bladder. Reproductive: The uterus is not definitely identified. Bones/joints: Unremarkable. No acute fracture. Soft tissues: Unremarkable. CT/CT kidney stone [id number] IMPRESSION: 1. Small pleural effusions with airspace disease at the lung bases. 2. Diverticulosis. 3. Atherosclerosis.
[2024-01-28] MEDS: norepinephrine 4 MG/250 ML BAG 15 MG IV (10:31)
[2024-01-28] MEDS: cefepime 2,000 MG in sodium chloride 0.9% (plus) 50 ML 100 MG IV (11:35)
[2024-01-28] MEDS: potassium chloride ER 20 mEq Tablet PO (12:26)
--- NOTE | 2024-01-28 12:34 | PC.NURSE ---
Educated patient family not to turn off IV medication pumps.
[2024-01-28 12:50] LABS: Magnesium 1.7 mg/dL (1.7-2.3)
--- NOTE | 2024-01-28 13:39 | PHA.VACGOAL ---
Vancomycin Goal - Goal Vancomycin Indication:: Other - Therapy Current therapy:: Cefepime Day of therpy:: Day []of [] . Actual body weight (kg): 168 lb 3 oz - Data Labs: WBC 14.44 10^3/uL (3.29-11.43) H 01/28/24 03:54 RBC 3.71 10^6/uL (3.85-5.65) L 01/28/24 03:54 Hgb 11.50 g/dL (11.27-16.99) 01/28/24 03:54 Hct 35.4 % (36-47) L 01/28/24 03:54 MCV 95.4 fl (85-98) 01/28/24 03:54 MCH 31.0 pg (27-33) 01/28/24 03:54 MCHC 32.5 g/dL (30-55) 01/28/24 03:54 RDW 13.6 % (12.1-15.1) 01/28/24 03:54 Sodium 137 mmol/L (136-145) 01/28/24 03:54 Potassium 3.4 mmol/L (3.5-5.1) L 01/28/24 03:54 Chloride 99 mmol/L (98-107) 01/28/24 03:54 Carbon Dioxide 25 mmol/L (22-29) 01/28/24 03:54 Anion Gap 16.4 (5-19) 01/28/24 03:54 BUN 21 mg/dL (8-23) 01/28/24 03:54 Creatinine 1.3 mg/dL (0.5-0.9) H 01/28/24 03:54 GFR Calculation Not Reportable 01/28/24 03:54 Last dialysis session:: N/A Treatment plan:: new consult Regimen:: 750mg q24h
--- NOTE | 2024-01-28 14:15 | P.PN_ITS ---
Subjective 2 Subjective: She reports she is feeling better. She has had some discomfort in her left shoulder likely from laying in bed. She otherwise reports breathing is comfortable on low flow oxygen support. No chest pain or pressure. No nausea vomiting diarrhea. No abdominal pain or discomfort. Vitals/I&O/Wt Last Vital Signs Temp 99.4 F 01/28/24 12:15 Pulse 104 H 01/28/24 14:07 Resp 25 H 01/28/24 12:15 BP 118/63 01/28/24 12:15 Pulse Ox 94 01/28/24 12:15 O2 Del Method Nasal Cannula 01/28/24 12:15 O2 Flow Rate 2 01/28/24 12:15 01/27/24 01/28/24 01/28/24 22:59 06:59 14:59 Intake Total 262.75 / 266.375 286.625 / 553.000 463.708 / 463.708 Output Total 700 / 700 350 / 1050 1000 / 1000 Balance -437.25 / -433.625 -63.375 / -497.000 -536.292 / -536.292 Weight last 48 hrs Weight 76.289 kg Weight 68.492 kg Weight 68.492 kg Physical Exam 2 Narrative: Accompanied by her daughter and [id number]. Nasal cannula oxygen on. Const: COMMON NORMALS: patient oriented x3 and alert GENERAL APPEARANCE: c ooperative ORIENTATION/CONSCIOUSNESS: Yes awake HENMT: COMMON NORMALS: oropharynx normal Neck/C-Spine: COMMON NORMALS: no JVD Resp: COMMON NORMALS: normal respiratory effort and clear to auscultation bilaterally AUSCULTATION: clear to auscultation bilaterally Cardio: COMMON NORMALS: no JVD, regular rhythm, S1 normal heart sound present, S2 normal heart sound present and No murmurs present (Cardio) RHYTHM: regular rhythm HEART SOUNDS: S1 normal heart sound present and S2 normal heart sound present GI: COMMON NORMALS: Normal to inspection, nondistended, normoactive bowel sounds present, Soft to palpation and non-tender PALPATION: Yes Soft to palpation Extremity: COMMON NORMALS: no joint enlargement and no pedal edema Neuro: COMMON NORMALS: patient oriented x3 and moves all extremities S ENSORIUM/ORIENTATION: Yes alert Skin: COMMON NORMALS: no rashes or lesions noted GENERAL SKIN EXAM: no rashes or lesions noted Urinary Catheter Management: Siddiqui: Cath Placed During This Visit: yes Reason for Continuing Indwelling Catheter: Accurate Measurement of Urinary Output in Critically Ill Patients Urinary Catheter Date of Insertion: 01/27/24 Urinary Catheter Time of Insertion: 13:47 Data 01/28/24 03:54 01/28/24 03:54 Micro: Microbiology 01/28/24 10:25 Legionella Urinary Antigen - Final Urine,Clean Catch 01/27/24 21:40 Bacterial Antigens - Final Urine Kidney 01/27/24 22:46 Blood Culture - Preliminary Blood SPECIMEN COLLECTED 01/27/24 22:40 Blood Culture - Preliminary Blood SPECIMEN COLLECTED A&P Assessment and plan (1) Shock: Reviewed vitals, pressor rate, CBC, BMP, TSH, UA, requested CT abdomen pelvis, EKG, left shoulder x-ray. Has been bothered by some pain in the left shoulder. Otherwise she is doing better subjectively. Reviewed cardiology note, discussed with environmental services tech. Discussed with nursing, patient and family at bedside. She is still requiring Levophed support, 4 mcg/min. Started on antibiotics with possible septic shock, possible cardiogenic shock continue Levophed support, wean down as tolerating. With finding of pneumonia, urinary tract infection. CT abdomen pelvis reviewed, no obstructive uropathy. She is doing well on 2 L nasal cannula. Continue cefepime, vancomycin. Follow-up blood cultures. Reviewed urine antigens, negative, added Legionella antigen, reviewed, negative. Urine culture is requested. MRSA PCR is requested. Repeat blood counts, chemistry. (2) Non-ST elevation [place] (NSTEMI): Continue aspirin, Plavix, statin, not on beta-abel due to hypotension. Coronary artery disease with ischemic cardiomyopathy Status post PCI with stent placement on 01/26 (3) CHF (congestive heart failure): Continue hemodynamic support as above. IV diuretics with Lasix 40 mg every 12 hours. Monitor for risk of electrolyte deficiency, worsening renal function. Repeat chemistry. Reviewed potassium, noted hypokalemia, given potassium replacement. Recheck levels. Replace magnesium. Recheck level. Acute systolic heart failure with reduced ejection fraction with EF of 30 to 35% Acute on chronic diastolic heart failure exacerbation Echo from earlier today reviewed Strict I's and O's Daily weights monitor hemodynamics (4) Atrial fibrillation: Completed 24-hour amiodarone infusion. Switch to oral amiodarone 400 mg twice daily. Newly diagnosed atrial fibrillation with rapid ventricular rate (5) Hypothyroidism: TSH 3.42 in September 2023, repeat level in a.m. 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 Internal medicine service will continue to follow. Attestations 2 Medical Necessity Statement*: Continue admission for assessment and management of shock, possible septic shock, possible cardiogenic shock following NSTEMI, with pneumonia, UTI, newly diagnosed atrial fibrillation, decompensated congestive heart failure. Coding Level of Care Code Critical Care >/= 30 minutes Critical care time (in minutes): 40 The high probability of a clinically significant, sudden or life threatening deterioration, as referenced in this documentation, required my full and direct attention, intervention and personal management. The critical care time shown is in addition to time spent performing any reported separately billable procedures and includes the following: [x] Data and vital sign review and interpretation [x ] Patient assessment, examination and intervention [x] Medication orders and management [x] Patient/Family updates as able [x] Care Coordination and Documentation. 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
[2024-01-28] MEDS: guaiFENesin 600 mg Tablet PO ×2 (14:39→17:46)
[2024-01-28] MEDS: lidocaine 5% Patch 1 PATCH TOPICAL ×2 (14:40→20:11)
--- NOTE | 2024-01-28 17:12 | XRR_ITS ---
PROCEDURE INFORMATION: Exam: XR Left Shoulder Exam date and time: 01/28/2024 5:59 PM Age: 83 years old Clinical indication: Pain; Shoulder; Left TECHNIQUE: Imaging protocol: Radiologic exam of the left shoulder. Views: 2 or more views. COMPARISON: CR (CHEST, ) 01/27/2024 9:34 PM FINDINGS: Bones/joints: Osseous structures are intact. Negative for fracture. Moderate DJD of the glenohumeral joint. Soft tissues: Normal. XR/XR shoulder LT min 2V* [id number] IMPRESSION: No acute findings. Moderate DJD of the glenohumeral joint.
--- NOTE | 2024-01-28 17:31 | ECG_ITS ---
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 Measurements Intervals [place] Rate: 106 P: 0 AR: 0 QRS: -63 QRSD: 106 T: 72 QT: 355 QTc: 473 Interpretive Statements ATRIAL FIBRILLATION WITH RAPID VENTRICULAR RESPONSE LEFT ANTERIOR FASCICULAR BLOCK [QRS AXIS <= -45, QR IN I, RS IN II] MINIMAL VOLTAGE CRITERIA FOR LVH, CONSIDER NORMAL VARIANT [MEETS CRITERIA IN ONE OF: R(aVL), S(V1), R(V5), R(V5/V6)+S(V1)] ANTEROSEPTAL MYOCARDIAL INFARCTION , OF INDETERMINATE AGE [40+ ms Q WAVE IN V1-V4] Compared to ECG 01/27/2024 20:43:52 Sinus rhythm no longer present ST (T wave) deviation no longer present Myocardial infarct finding still present Electronically Signed On 01-29-2024 11:13:04 CDT by Juan Butts M.D. [id number]
[2024-01-28] MEDS: temazepam 15 mg Capsule PO (20:10)
[2024-01-28] MEDS: atorvastatin 40 mg Tablet PO (20:10)
[2024-01-28] MEDS: enoxaparin 40 mg/0.4 mL Syringe SUBCUT (20:10)
[2024-01-28] MEDS: amiodarone 200 mg Tablet 400 MG PO (20:10)
[2024-01-28] MEDS: potassium chloride ER 20 mEq Tablet 40 MEQ PO (20:54)
--- NOTE | 2024-01-28 21:17 | PC.NURSE ---
Potassium Replacement: Patient's potassium was 3.4 and has 40mg lasix ordered. Dr. Mccord was contacted and gave telephone orders to give ordered lasix and replace potassium with 40meq PO KCl ONCE.
[2024-01-28] MEDS: magnesium sulfate premix 1 GM/100 ML PIGGYBACK IV (21:40)
[2024-01-28] MEDS: cefepime 1,000 MG in sodium chloride 0.9% (plus) 50 ML 100 MG IV (22:48)
[2024-01-29] VITALS (96 sets, daily range): BP systolic 64–131; BP diastolic 38–81; PULSE 70–98; RESP 12–34; TEMP 36.4–37.7; O2SAT 90–99; BMI 29.5
[2024-01-29 05:00] LABS: Basophils # 0.1 10^3/uL (0.0-0.1); Basophils % 0.6 %; Eosinophils # 0.2 10^3/uL (0.0-0.8); Eosinophils % 1.8 %; Hematocrit 40.6 % (36-47); Lymphocytes # 2.7 10^3/uL (0.8-4.8); Lymphocytes % 21.5 %; Mean Corpuscular HGB Conc 31.5 g/dL (30-55); Mean Corpuscular Hemoglobin 30.8 pg (27-33); Mean Corpuscular Volume 97.8 fl (85-98); Mean Platelet Volume 10.7 fL (7.4-10.4); Monocytes # 1.7 10^3/uL (0.2-0.9); Monocytes % 13.2 %; Neutrophils # 7.87 10^3/uL (1.8-7.7); Neutrophils % 62.6 %; Nucleated Red Blood Cells % 0 %; Platelet Count 213 10^3/cmm (157-399); Red Blood Count 4.15 10^6/uL (3.85-5.65); Red Cell Distribution Width 13.8 % (12.1-15.1); White Blood Count 12.58 10^3/uL (3.29-11.43)
[2024-01-29] MEDS: norepinephrine 4 MG/250 ML BAG 15 MG IV (05:18)
[2024-01-29 05:20] LABS: Anion Gap 13.1 (5-19); Blood Urea Nitrogen 23 mg/dL (8-23); Calcium 8.7 mg/dL (8.5-10.5); Carbon Dioxide 27 mmol/L (22-29); Chloride 100 mmol/L (98-107); Creatinine Clr Calc Pharmacy 28.7344; Glucose 125 mg/dL (65-115); Magnesium 1.9 mg/dL (1.7-2.3); Osmolality Calculated 287 mOsm/kg (285-295); Potassium 4.1 mmol/L (3.5-5.1); Sodium 136 mmol/L (136-145)
[2024-01-29] MEDS: FUROsemide 10 mg/mL SDV 4mL 20 MG IVP ×2 (06:22→18:38)
[2024-01-29] MEDS: amiodarone 200 mg Tablet 400 MG PO ×2 (08:27→16:59)
[2024-01-29] MEDS: guaiFENesin 600 mg Tablet PO ×2 (08:27→16:59)
[2024-01-29] MEDS: aspirin 81 mg EC Tablet PO (08:27)
[2024-01-29] MEDS: levothyroxine 50 mcg Tablet PO (08:27)
[2024-01-29] MEDS: clopidogrel 75 mg Tablet PO (08:27)
--- NOTE | 2024-01-29 08:37 | P.PN_ITS ---
Subjective 2 Subjective: Patient is feeling well. No chest pain. Blood pressure has improved. Staying in sinus rhythm. Vitals/I&O/Wt Last Vital Signs Temp 98.4 F 01/29/24 03:45 Pulse 70 01/29/24 08:00 Resp 21 H 01/29/24 06:15 BP 123/61 01/29/24 06:15 Pulse Ox 96 01/29/24 08:00 O2 Del Method Nasal Cannula 01/29/24 08:00 O2 Flow Rate 2 01/29/24 08:00 01/28/24 01/29/24 01/29/24 22:59 06:59 14:59 Intake Total 852.317 / 1541.692 251.875 / 1793.567 Output Total 175 / 1175 1250 / 2425 Balance 677.317 / 366.692 -998.125 / -631.433 Weight last 48 hrs Weight 166 lb 7.184 oz Weight 168 lb 3 oz Physical Exam 2 Narrative: GENERAL: Patient is alert, awake and oriented x3. [] NECK: No jugular vein distension. [] HEENT: No cyanosis. No icterus. No pallor. [] HEART: Regular S1 and S2. No murmur, rub or gallop. [] LUNGS:Mild bilateral crackles. CENTRAL NERVOUS SYSTEM: Grossly nonfocal. [] EXTREMITIES: Lower extremities with 1+ edema bilaterally. Urinary Catheter Management: Siddiqui: Cath Placed During This Visit: yes Reason for Continuing Indwelling Catheter: Accurate Measurement of Urinary Output in Critically Ill Patients Urinary Catheter Date of Insertion: 01/27/24 Urinary Catheter Time of Insertion: 13:47 Data 01/29/24 04:38 01/29/24 04:38 Micro: Microbiology 01/27/24 21:40 Urine Culture - Final Urine,Clean Catch 01/27/24 22:46 Blood Culture - Preliminary Blood NEGATIVE TO DATE 01/27/24 22:40 Blood Culture - Preliminary Blood NEGATIVE TO DATE 01/28/24 10:25 Legionella Urinary Antigen - Final Urine,Clean Catch 01/27/24 21:40 Bacterial Antigens - Final Urine Kidney A&P Assessment and plan (1) Myocardial infarction: (2) CHF (congestive heart failure): (3) Hyperlipidemia: Qualifiers: Hyperlipidemia type: mixed hyperlipidemia Qualified Code(s): E78.2 - Mixed hyperlipidemia (4) HTN (hypertension): Qualifiers: Hypertension type: unspecified Qualified Code(s): I10 - Essential (primary) hypertension (5) Non-ST elevation [place] (NSTEMI): (6) LANA (acute kidney injury): (7) Shock: (8) Atrial fibrillation: Plan Patient had successful PCI of subtotally occluded ostial proximal LAD with 1 stent. Has residual large sized OM stenosis that will be treated as a staged PCI later. She went into shock. Blood pressure is improving. Can wean down levophed as able. On PO amiodarone. Staying in normal sinue rhythm Continue dual antiplatelet therapy with aspirin and Plavix. High intensity statin therapy. Continue holding aspirin and plavix. Antibiotic therapy per medicine team. Appreciate recommendations. Creatinine uptrending. Has good urine output. She had very high LVEDP, we will continue cautious diuresis. Close I and Os. Monitor renal function ECHO shows severe LV dysfunction with EF of 30-35%. Once cardiogenic shock resolves, we will start beta abel/ARB therapy. Also will plan on Lifevest. Continue ICU monitoring. Attestations 2 Medical Necessity Statement*: Care expected to cross 2 midnights. Patient had presented with high risk NSTEMI and underwent PCI of LAD. Needing pressor support and diuresis. Coding Level of Care Code Acute Code for [facility] Diagnoses Myocardial infarction I21.9 CHF (congestive heart failure) I50.9 Mixed hyperlipidemia E78.2 Hyperlipidemia type: mixed hyperlipidemia Hypertension, unspecified type I10 Hypertension type: unspecified Non-ST elevation [place] (NSTEMI) I21.4 LANA (acute kidney injury) N17.9 Shock R57.9 Atrial fibrillation I48.91
[2024-01-29] MEDS: cefepime 1,000 MG in sodium chloride 0.9% (plus) 50 ML 100 MG IV ×2 (11:28→23:43)
[2024-01-29] MEDS: doxycycline 100 mg Tablet PO ×2 (12:23→16:59)
--- NOTE | 2024-01-29 12:28 | P.PN_ITS ---
Subjective 2 Subjective: Overnight Tmax to 100 Fahrenheit. White blood cell count trending down to 12,000 today. Patient states she feels clinically improving. Net -700 cc last 24 hours. Creatinine trended mildly up to 1.4.Continues to be on 4mc/min levophed Medications: Reviewed: Yes Vitals/I&O/Wt Last Vital Signs Temp 98.9 F 01/29/24 07:45 Pulse 96 01/29/24 10:30 Resp 20 H 01/29/24 10:30 BP 112/71 01/29/24 10:30 Pulse Ox 91 01/29/24 10:15 O2 Del Method Nasal Cannula 01/29/24 10:15 O2 Flow Rate 2 01/29/24 10:15 01/28/24 01/29/24 01/29/24 22:59 06:59 14:59 Intake Total 852.317 / 1541.692 251.875 / 1793.567 250 / 250 Output Total 175 / 1175 1250 / 2425 Balance 677.317 / 366.692 -998.125 / -631.433 250 / 250 Weight last 48 hrs Weight 75.5 kg Weight 76.289 kg Physical Exam 2 Narrative: General: No acute distress, AO x3 HEENT: PERRLA, pupils bilaterally equal and reactive, pallors not present Chest: Coarse crackles B/L infraaxillary areas CVS: S1-S2 regular, no murmurs, no tachycardia, no gallops, no rubs Abdomen: Soft, nontender, no organomegaly, bowel sounds present Neuro: No focal deficits, no facial deformity, AO x3, power 5/5 in all limbs Urinary Catheter Management: Siddiqui: Cath Placed During This Visit: yes Reason for Continuing Indwelling Catheter: Accurate Measurement of Urinary Output in Critically Ill Patients Urinary Catheter Date of Insertion: 01/27/24 Urinary Catheter Time of Insertion: 13:47 Data 01/29/24 04:38 01/29/24 04:38 Micro: Microbiology 01/27/24 21:40 Urine Culture - Final- no growth Urine,Clean Catch 01/27/24 22:46 Blood Culture - Preliminary Blood NEGATIVE TO DATE 01/27/24 22:40 Blood Culture - Preliminary Blood NEGATIVE TO DATE 01/28/24 10:25 Legionella Urinary Antigen - Final- negative Urine,Clean Catch 01/27/24 21:40 Bacterial Antigens - Final- negative - negative Urine Kidney Sputum cx : unable to expectorate A&P Assessment and plan (1) Shock: She is still requiring Levophed support, 4 mcg/min. Started on antibiotics with possible septic shock, possible cardiogenic shock Chest x-ray per radiology and personal read showing left lower lobe pneumonia. Lower lobes of the lungs visualized on CT of the chest showing small bilateral pleural effusions with airspace disease in both lungs. Patient denies any history of aspiration or other choking episodes. Denies any past history of COPD. Oxygen requirement is currently stable at 2 L/min supplemental O2. No known past history of sleep apnea. Patient is a non-smoker. Thus far urine Legionella and bacterial antigens are negative Respiratory viral panel ordered today as with ongoing fevers in spite of broad- spectrum antibiotics, may be indicative of a viral process. Sputum culture not available as patient is unable to expectorate Continue cefepime and vancomycin, add doxycycline 100 mg p.o. twice daily for atypical coverage. Preferring doxycycline over Levaquin or azithromycin for now to minimize drug interactions and risk of QTc prolongation. Urine culture without growth, blood culture without growth (2) Non-ST elevation [place] (NSTEMI): Continue aspirin, Plavix, statin, not on beta-abel due to hypotension. Coronary artery disease with ischemic cardiomyopathy Status post PCI with stent placement on 01/26 (3) CHF (congestive heart failure): Continue hemodynamic support as above. IV diuretics with Lasix 20 mg every 12 hours. Acute systolic heart failure with reduced ejection fraction with EF of 30 to 35% Acute on chronic diastolic heart failure exacerbation Strict I's and O's Attempt to remove Siddiqui as soon as feasible to minimize risk of CAUTI Daily weights monitor hemodynamics (4) Atrial fibrillation: continue oral amiodarone 400 mg twice daily. 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 Internal medicine service will continue to follow. 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
[2024-01-29] MEDS: lanolin oint 7 gm 1 APPLIC TOPICAL (12:37)
--- NOTE | 2024-01-29 13:09 | PC.SOCIAL ---
IMM update Pg. 2 of IMM updated and reviewed with patient, who verbalized understanding. Copy provided.
[2024-01-29 15:39] LABS: Adenovirus Not Detected (NOT DETECT); Chlamydia Pneumoniae Not Detected (NOT DETECT); Coronavirus 229E,HKU1,NL63,OC4 Not Detected (NOT DETECT); Human Metapneumovirus Not Detected (NOT DETECT); Human Rhinovirus/Enterovirus Not Detected (NOT DETECT); Influenza A Not Detected (NOT DETECT); Influenza A H1 Not Detected (NOT DETECT); Influenza A H1-2009 Not Detected (NOT DETECT); Influenza A H3 Not Detected (NOT DETECT); Influenza B Not Detected (NOT DETECT); Mycoplasma Pneumoniae Not Detected (NOT DETECT); Parainfluenza Virus Type 1 Not Detected (NOT DETECT); Parainfluenza Virus Type 2 Not Detected (NOT DETECT); Parainfluenza Virus Type 3 Not Detected (NOT DETECT); Parainfluenza Virus Type 4 Not Detected (NOT DETECT); Respiratory Syncytial Virus A Not Detected (NOT DETECT); Respiratory Syncytial Virus B Not Detected (NOT DETECT); SARS-COV-2 Not Detected (NOT DETECT)
[2024-01-29 16:55] LABS: Methicillin-Resist S.aureu PCR NOT DETECTED (NOT DETECTED)
[2024-01-29] MEDS: lidocaine 5% Patch 1 PATCH TOPICAL (20:33)
[2024-01-29] MEDS: atorvastatin 40 mg Tablet PO (20:34)
[2024-01-29] MEDS: enoxaparin 40 mg/0.4 mL Syringe SUBCUT (20:34)
[2024-01-29] MEDS: temazepam 15 mg Capsule PO (20:34)
[2024-01-29 22:09] LABS: Glucose Point of Care 106 mg/dL (70-110)
--- NOTE | 2024-01-29 22:20 | PC.NURSE ---
Pt took evening meds, assisted to restroom, and laid to rest on right side. Within 30 min pt's blood pressure began to drop, MAP in 50's, repositioned blood pressure cuff and rechecked, MAP in upper 40's with recheck. Pt sluggish to respond, but answered questions appropriately, denied any pain (specifically back pain), no bleeding to right groin site. Levophed restarted to right AC after confirming IV patency by flushing and blood return. Levophed titrated as high as 8 mcg/min before MAP improved to > 65. Contacted Dr. Zuniga and updated, new order received for PICC. During titration, noted that left AC IV was leaking medication. Aspirated remaining medication from IV catheter and discontinued. Contacted pharmacy for antidote information and relayed recommendation for Phentolamine mixed with NS injected to the site and cool compresses following to Dr. Zuniga. Currently site to left AC with slight pink discoloration, no increased warmth, no swelling. Order received by Dr. Zuniga to monitor site. Pt more alert, smiling at present, alert and oriented x4. Discussed PICC line and pt agreeable, consent signed by pt.
[2024-01-29] MEDS: vancomycin 750 MG in sodium chloride 0.9% 250 ML 250 MG IV (22:41)
--- NOTE | 2024-01-29 23:09 | XRR_ITS ---
PROCEDURE INFORMATION: Exam: XR Chest Exam date and time: 01/29/2024 11:33 PM Age: 83 years old Clinical indication: Screening exam; Other screening; Additional info: Picc placement confirmation TECHNIQUE: Imaging protocol: Radiologic exam of the chest. Views: 1 view. COMPARISON: CR (CHEST, ) 01/27/2024 9:34 PM FINDINGS: Tubes, catheters and devices: Right PICC terminates at the superior cavoatrial junction. Lungs: Linear and platelike opacities in the bilateral lower lobe. Pleural spaces: No pleural effusion. No pneumothorax. Heart/Mediastinum: No cardiomegaly. Bones/joints: No acute findings. XR/XR chest 1V portable [id number] IMPRESSION: 1. Right PICC terminates at the superior cavoatrial junction. No pneumothorax. 2. Presumed linear and platelike atelectasis in the bilateral lower lobe. Additional consideration includes acute infiltrate in the appropriate clinical setting.
--- NOTE | 2024-01-29 23:43 | PC.NURSE ---
Consent obtained by myself and patient. Risk and benefits discussed, Risk included dvt and infection. RUE scanned with US and basilic vein was the best option. Vein was straight, 4 mm and free of visible clot. Pt prepped and draped in usual sterile fashion. Using real time US, lidocaine injected, vein accessed, and picc floated into position. Chest xray obtained, and awaiting confirmation. No bleeding no hemotoma. EBL less then 5 ml.
[2024-01-30] VITALS (94 sets, daily range): BP systolic 57–140; BP diastolic 39–93; PULSE 74–99; RESP 8–37; TEMP 36.4–37.2; O2SAT 89–99
[2024-01-30 03:50] LABS: Basophils # 0.1 10^3/uL (0.0-0.1); Basophils % 0.8 %; Eosinophils # 0.5 10^3/uL (0.0-0.8); Eosinophils % 5.6 %; Hematocrit 35.9 % (36-47); Lymphocytes # 2.1 10^3/uL (0.8-4.8); Lymphocytes % 22.8 %; Mean Corpuscular Hemoglobin 31.6 pg (27-33); Mean Corpuscular Volume 98.6 fl (85-98); Mean Platelet Volume 11.1 fL (7.4-10.4); Monocytes # 1.1 10^3/uL (0.2-0.9); Neutrophils # 5.33 10^3/uL (1.8-7.7); Neutrophils % 58.5 %; Nucleated Red Blood Cells % 0 %; Platelet Count 210 10^3/cmm (157-399); Red Blood Count 3.64 10^6/uL (3.85-5.65); Red Cell Distribution Width 13.5 % (12.1-15.1); White Blood Count 9.11 10^3/uL (3.29-11.43)
[2024-01-30 04:24] LABS: Blood Urea Nitrogen 28 mg/dL (8-23); Calcium 8.4 mg/dL (8.5-10.5); Carbon Dioxide 25 mmol/L (22-29); Chloride 101 mmol/L (98-107); Creatinine Clr Calc Pharmacy 26.6821; Glucose 110 mg/dL (65-115); Osmolality Calculated 290 mOsm/kg (285-295); Sodium 137 mmol/L (136-145)
[2024-01-30 04:26] LABS: Anion Gap 15.4 (5-19); Potassium 4.4 mmol/L (3.5-5.1)
[2024-01-30] MEDS: FUROsemide 10 mg/mL SDV 4mL 20 MG IVP (06:05)
[2024-01-30] MEDS: doxycycline 100 mg Tablet PO ×2 (08:29→17:30)
[2024-01-30] MEDS: clopidogrel 75 mg Tablet PO (08:29)
[2024-01-30] MEDS: guaiFENesin 600 mg Tablet PO ×2 (08:31→17:30)
[2024-01-30] MEDS: aspirin 81 mg EC Tablet PO (08:31)
[2024-01-30] MEDS: levothyroxine 50 mcg Tablet PO (08:31)
[2024-01-30] MEDS: amiodarone 200 mg Tablet 400 MG PO ×2 (08:32→17:30)
[2024-01-30] MEDS: lidocaine 5% Patch 1 PATCH TOPICAL (08:33)
--- NOTE | 2024-01-30 08:39 | P.PN_ITS ---
Subjective 2 Subjective: Patient is doing well. Denies chest pain or shortness of breath. She is off Levophed now. Blood pressure is stable. Vitals/I&O/Wt Last Vital Signs Temp 97.6 F 01/30/24 06:00 Pulse 82 01/30/24 06:15 Resp 21 H 01/30/24 06:15 BP 119/75 01/30/24 06:15 Pulse Ox 97 01/30/24 06:15 O2 Del Method Nasal Cannula 01/29/24 18:00 O2 Flow Rate 2 01/29/24 16:00 01/29/24 01/30/24 01/30/24 22:59 06:59 14:59 Intake Total 171.750 / 632.500 436.000 / 1068.500 Output Total 200 / 1200 200 / 1400 Balance -28.250 / -567.500 236.000 / -331.500 Weight last 48 hrs Weight 160 lb 14.999 oz Weight 166 lb 7.184 oz Physical Exam 2 Narrative: GENERAL: Patient is alert, awake and oriented x3. [] NECK: No jugular vein distension. [] HEENT: No cyanosis. No icterus. No pallor. [] HEART: Regular S1 and S2. No murmur, rub or gallop. [] LUNGS:Mild bilateral crackles. CENTRAL NERVOUS SYSTEM: Grossly nonfocal. [] EXTREMITIES: Lower extremities with 1+ edema bilaterally. Urinary Catheter Management: Siddiqui: Cath Placed During This Visit: yes, but has since been removed by the nurse Reason for Continuing Indwelling Catheter: Other Urinary Catheter Date of Insertion: 01/27/24 Urinary Catheter Time of Insertion: 13:47 Date Urinary Catheter Removed: 01/29/24 Time Urinary Catheter Discontinued: 14:40 Data 01/30/24 03:25 01/30/24 03:25 Micro: Microbiology 01/27/24 21:40 Urine Culture - Final Urine,Clean Catch A&P Assessment and plan (1) Myocardial infarction: (2) CHF (congestive heart failure): (3) Hyperlipidemia: Qualifiers: Hyperlipidemia type: mixed hyperlipidemia Qualified Code(s): E78.2 - Mixed hyperlipidemia (4) HTN (hypertension): Qualifiers: Hypertension type: unspecified Qualified Code(s): I10 - Essential (primary) hypertension (5) Non-ST elevation NM (NSTEMI): (6) LANA (acute kidney injury): (7) Shock: (8) Atrial fibrillation: Plan Patient had successful PCI of subtotally occluded ostial proximal LAD with 1 stent. Has residual large sized OM stenosis that will be treated as a staged PCI later. Shock has resolved now and off pressors. Tomorrow, we may restart beta blockers. On PO amiodarone. Staying in normal sinus rhythm Continue dual antiplatelet therapy with aspirin and Plavix. High intensity statin therapy. Antibiotic therapy per medicine team. Appreciate recommendations. Creatinine uptrending. Today is 1.5. Has good urine output. She had very high LVEDP, we will continue cautious diuresis. Close I and Os. Monitor renal function We will order Lifevest for discharge Continue ICU monitoring. May transfer out of ICU tomorrow if continues to improve Attestations 2 Medical Necessity Statement*: Care expected to cross 2 midnights. Patient had acute non-ST elevation NM and cardiogenic shock. Improving and is off pressors now. Still needs diuresis Coding Level of Care Code Acute Code for [facility] Diagnoses Myocardial infarction I21.9 CHF (congestive heart failure) I50.9 Mixed hyperlipidemia E78.2 Hyperlipidemia type: mixed hyperlipidemia Hypertension, unspecified type I10 Hypertension type: unspecified Non-ST elevation NM (NSTEMI) I21.4 LANA (acute kidney injury) N17.9 Shock R57.9 Atrial fibrillation I48.91
--- NOTE | 2024-01-30 08:55 | P.PN_ITS ---
Subjective 2 Subjective: Off Levophed since 4 AM today. Ended up needing a PICC line overnight due to lack of IV access and infiltration of left side IV lines. T max 99.8 F last evening. Resolved leukocytosis Medications: Reviewed: Yes Vitals/I&O/Wt Last Vital Signs Temp 97.6 F 01/30/24 06:00 Pulse 82 01/30/24 06:15 Resp 21 H 01/30/24 06:15 BP 119/75 01/30/24 06:15 Pulse Ox 97 01/30/24 06:15 O2 Del Method Nasal Cannula 01/29/24 18:00 O2 Flow Rate 2 01/29/24 16:00 01/29/24 01/30/24 01/30/24 22:59 06:59 14:59 Intake Total 171.750 / 632.500 436.000 / 1068.500 Output Total 200 / 1200 200 / 1400 Balance -28.250 / -567.500 236.000 / -331.500 Weight last 48 hrs Weight 73 kg Weight 75.5 kg Physical Exam 2 Narrative: General: No acute distress, AO x3 HEENT: PERRLA, pupils bilaterally equal and reactive, pallors not present Chest: Normal vesicular breath sounds, no added sounds, equal good air entry bilaterally CVS: S1-S2 regular, no murmurs, no tachycardia, no gallops, no rubs Abdomen: Soft, nontender, no organomegaly, bowel sounds present Neuro: No focal deficits, no facial deformity, AO x3, power 5/5 in all limbs Urinary Catheter Management: Siddiqui: Cath Placed During This Visit: yes, but has since been removed by the nurse Reason for Continuing Indwelling Catheter: Other Urinary Catheter Date of Insertion: 01/27/24 Urinary Catheter Time of Insertion: 13:47 Date Urinary Catheter Removed: 01/29/24 Time Urinary Catheter Discontinued: 14:40 Data 01/30/24 03:25 01/30/24 03:25 A&P Assessment and plan (1) Shock: resolved Off Levophed this morning. Currently on antibiotics with possible septic shock, possible cardiogenic shock Chest x-ray per radiology and personal read showing left lower lobe pneumonia. Lower lobes of the lungs visualized on CT of the chest showing small bilateral pleural effusions with airspace disease in both lungs. Patient denies any history of aspiration or other choking episodes. Denies any past history of COPD. Oxygen requirement is currently stable at 2 L/min supplemental O2. Legionella and bacterial antigens are negative Respiratory viral panel without acute viral process Sputum culture not available as patient is unable to expectorate Discontinue vancomycin as MRSA PCR has returned negative Continue cefepime and doxycycline for atypical coverage Urine culture without growth, blood culture without growth No focal abdominal symptoms. (2) Non-ST elevation [place] (NSTEMI): Continue aspirin, Plavix, statin, not on beta-abel due to hypotension. Coronary artery disease with ischemic cardiomyopathy Status post PCI with stent placement on 01/26 (3) CHF (congestive heart failure): Continue hemodynamic support as above. IV diuretics with Lasix 20 mg every 12 hours. Management per cardiology Acute systolic heart failure with reduced ejection fraction with EF of 30 to 35% Strict I's and O's Siddiqui has been removed, patient is urinating and bedside commode. Overnight urine output at 1000 cc. Net -1.4 L since admission Daily weights monitor hemodynamics (4) Atrial fibrillation: continue oral amiodarone 400 mg twice daily. 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 May have a component of TIARA from recent angiogram. Additionally on IV diuresis. However currently urine output is over 1400 cc last 24 hours. Trend creatinine closely. Expected to plateau in the upcoming days. Plan Thank for this consultation. Internal medicine service will continue to follow. 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
[2024-01-30] MEDS: cefepime 1,000 MG in sodium chloride 0.9% (plus) 50 ML 100 MG IV ×2 (12:31→23:29)
[2024-01-30] MEDS: norepinephrine 4 MG/250 ML BAG 7.5 MG IV (13:27)
--- NOTE | 2024-01-30 17:36 | PC.NURSE ---
Received order for [facility] noninvasive fluid challenge. Shows fluid responsive, SVI change of +18.9%. Nurse alerted Dr mosher, received orders to hold the 1815 dose of lasix.
--- NOTE | 2024-01-30 18:24 | PC.NURSE ---
Shift Summary: uneventful shift. up to the chair for most of the shift. Gets up with minimal assistance to bedside commode. Off of levophed for most of the day but needed 2mcg/min from for 2 hours and then came back off. Noninvasive fluid challenge shows fluid responsive as SVI change of 18.9%, last dose of lasix held as a result. PICC line dressing changed.
[2024-01-30 18:47] LABS: Basophils # 0.1 10^3/uL (0.0-0.1); Basophils % 0.7 %; Eosinophils # 0.5 10^3/uL (0.0-0.8); Eosinophils % 5.5 %; Hematocrit 38.8 % (36-47); Lymphocytes # 2.1 10^3/uL (0.8-4.8); Lymphocytes % 22.9 %; Mean Corpuscular HGB Conc 32.5 g/dL (30-55); Mean Corpuscular Hemoglobin 31.3 pg (27-33); Mean Corpuscular Volume 96.3 fl (85-98); Mean Platelet Volume 10.7 fL (7.4-10.4); Monocytes % 10.8 %; Neutrophils # 5.46 10^3/uL (1.8-7.7); Neutrophils % 59.8 %; Nucleated Red Blood Cells % 0 %; Platelet Count 249 10^3/cmm (157-399); Red Blood Count 4.03 10^6/uL (3.85-5.65); Red Cell Distribution Width 13.3 % (12.1-15.1); White Blood Count 9.13 10^3/uL (3.29-11.43)
[2024-01-30] MEDS: enoxaparin 30 mg/0.3 mL Syringe SUBCUT (20:56)
[2024-01-30] MEDS: atorvastatin 40 mg Tablet PO (20:57)
[2024-01-30 20:58] LABS: Blood Urea Nitrogen 40 mg/dL (8-23); Calcium 9.5 mg/dL (8.5-10.5); Carbon Dioxide 27 mmol/L (22-29); Chloride 98 mmol/L (98-107); Creatinine Clr Calc Pharmacy 24.6087; Glucose 91 mg/dL (65-115); Osmolality Calculated 291 mOsm/kg (285-295); Sodium 136 mmol/L (136-145)
[2024-01-31] VITALS (50 sets, daily range): BP systolic 79–137; BP diastolic 44–93; PULSE 78–97; RESP 10–32; TEMP 36.7–37; O2SAT 86–100
[2024-01-31] MEDS: FUROsemide 10 mg/mL SDV 4mL 20 MG IVP (06:18)
--- NOTE | 2024-01-31 08:05 | XR_ITS ---
WS: [id number] Examination: XR chest 1V portable [id number] Reason for Exam: Shortness of breath Date: 01/31/2024 Comparison: 01/29/2024 Findings: There is a well-positioned right PICC The heart is prominent in size. The mediastinum is not widened Bilateral basilar infiltrative changes are noted. These are similar to slightly worse than on the pre vious study There is no evidence of pulmonary edema. No large effusion is identified. XR/XR chest 1V portable [id number] IMPRESSION: Persistent and slightly more prominent bilateral basilar infiltrate/atelectasis Impression:
--- NOTE | 2024-01-31 08:06 | PM.PN ---
Subjective Subjective: Patient is feeling well. Denies complaints of chest pain or shortness of breath. She is off of pressor support and on room air. Had 2 brief episodes of hypotension last night Vitals/I&O/Wt Last Vital Signs Temp 98.2 F 01/31/24 07:43 Pulse 80 01/31/24 06:00 Resp 21 H 01/31/24 06:00 BP 105/61 01/31/24 06:00 Pulse Ox 95 01/31/24 06:00 O2 Del Method Nasal Cannula 01/31/24 06:00 O2 Flow Rate 1.5 01/31/24 06:00 01/30/24 01/31/24 01/31/24 22:59 06:59 14:59 Intake Total 217.625 / 417.625 50 / 467.625 Output Total 100 / 500 100 / 600 Balance 117.625 / -82.375 -50 / -132.375 Weight last 48 hrs Weight 164 lb 3.91 oz Weight 160 lb 14.999 oz Physical Exam Narrative: GENERAL: Patient is alert, awake and oriented x3. [] NECK: No jugular vein distension. [] HEENT: No cyanosis. No icterus. No pallor. [] HEART: Regular S1 and S2. No murmur, rub or gallop. [] LUNGS: Clear to auscultation CENTRAL NERVOUS SYSTEM: Grossly nonfocal. [] EXTREMITIES: Lower extremities with no edema bilaterally. Urinary Catheter Management: Siddiqui: Cath Placed During This Visit: yes, but has since been removed by the nurse Reason for Continuing Indwelling Catheter: Other Urinary Catheter Date of Insertion: 01/27/24 Urinary Catheter Time of Insertion: 13:47 Date Urinary Catheter Removed: 01/29/24 Time Urinary Catheter Discontinued: 14:40 Data 01/31/24 09:22 01/31/24 09:22 A&P Assessment and plan (1) Myocardial infarction: (2) CHF (congestive heart failure): (3) Hyperlipidemia: Qualifiers: Hyperlipidemia type: mixed hyperlipidemia Qualified Code(s): E78.2 - Mixed hyperlipidemia (4) HTN (hypertension): Qualifiers: Hypertension type: unspecified Qualified Code(s): I10 - Essential (primary) hypertension (5) Non-ST elevation [place] (NSTEMI): (6) LANA (acute kidney injury): (7) Shock: (8) Atrial fibrillation: Plan Patient had successful PCI of subtotally occluded ostial proximal LAD with 1 stent. Has residual large sized OM stenosis that will be treated as a staged PCI later. Shock has resolved now and off pressors. Tomorrow, we may restart beta blockers. On PO amiodarone. Staying in normal sinus rhythm Continue dual antiplatelet therapy with aspirin and Plavix. After the staged PCI of OM as outpatient, may consider initiation of anticoagulation. Discussed plan with patient. High intensity statin therapy. Antibiotic therapy per medicine team. Appreciate recommendations. Creatinine is improving and is 1.3 now. Has good urine output. She had very high LVEDP. As she is saturating well on room air and is comfortable, with increasing creatinine yesterday Lasix was held. Will keep holding it. At time of discharge may resume low-dose Lasix Lifevest ordered Anticipated discharge home in 1-2 days Attestations Medical Necessity Statement*: Care expected to cross 2 midnights. Patient had AK and went into shock. Overall improving but needs further inpatient monitoring and treatment Coding Level of Care Code Acute Code for [facility] Diagnoses Myocardial infarction I21.9 CHF (congestive heart failure) I50.9 Mixed hyperlipidemia E78.2 Hyperlipidemia type: mixed hyperlipidemia Hypertension, unspecified type I10 Hypertension type: unspecified Non-ST elevation [place] (NSTEMI) I21.4 LANA (acute kidney injury) N17.9 Shock R57.9 Atrial fibrillation I48.91
[2024-01-31] MEDS: amiodarone 200 mg Tablet 400 MG PO ×2 (08:08→17:38)
[2024-01-31] MEDS: doxycycline 100 mg Tablet PO ×2 (08:09→17:38)
[2024-01-31] MEDS: clopidogrel 75 mg Tablet PO (08:09)
[2024-01-31] MEDS: aspirin 81 mg EC Tablet PO (08:10)
[2024-01-31] MEDS: levothyroxine 50 mcg Tablet PO (08:10)
[2024-01-31] MEDS: guaiFENesin 600 mg Tablet PO ×2 (08:10→17:38)
[2024-01-31 09:47] LABS: Basophils # 0.1 10^3/uL (0.0-0.1); Eosinophils # 0.7 10^3/uL (0.0-0.8); Eosinophils % 8.4 %; Hematocrit 36.9 % (36-47); Lymphocytes # 2.2 10^3/uL (0.8-4.8); Mean Corpuscular HGB Conc 32.5 g/dL (30-55); Mean Corpuscular Hemoglobin 31.2 pg (27-33); Mean Corpuscular Volume 95.8 fl (85-98); Mean Platelet Volume 10.9 fL (7.4-10.4); Neutrophils # 4.26 10^3/uL (1.8-7.7); Neutrophils % 51.4 %; Nucleated Red Blood Cells % 0 %; Platelet Count 245 10^3/cmm (157-399); Red Blood Count 3.85 10^6/uL (3.85-5.65); Red Cell Distribution Width 13.3 % (12.1-15.1)
[2024-01-31 10:09] LABS: Albumin Level 3.1 g/dL (3.5-5.2); Alkaline Phosphatase 56 U/L (35-105); Blood Urea Nitrogen 34 mg/dL (8-23); Calcium 8.9 mg/dL (8.5-10.5); Carbon Dioxide 26 mmol/L (22-29); Chloride 99 mmol/L (98-107); Creatinine Clr Calc Pharmacy 30.5873; Globulin 2.9 g/dL (1.3-4.6); Glucose 145 mg/dL (65-115); Iron 105 ug/dL (37-145); Osmolality Calculated 292 mOsm/kg (285-295); Sodium 136 mmol/L (136-145); Total Bilirubin 0.5 mg/dL (0.15-1.2)
[2024-01-31 10:12] LABS: Estmated Average Glucose 128; Hemoglobin A1C 6.1 % (4.0-6.0)
[2024-01-31 10:23] LABS: Procalcitonin 0.19 ng/mL (0-0.5); Vitamin B12 323 pg/mL (232-1245)
[2024-01-31 10:24] LABS: Alanine Aminotransferase 23 U/L (0-33); Anion Gap 15.2 (5-19); Aspartate Amino Transferase 22 U/L (0-32); Percent Saturation 43.5 % (20-50); Potassium 4.2 mmol/L (3.5-5.1); Total Iron Binding Capacity 241 mcg/dl; Unsaturated Iron Binding 136 ug/dL (112-347)
[2024-01-31] MEDS: cefepime 1,000 MG in sodium chloride 0.9% (plus) 50 ML 100 MG IV ×2 (11:31→23:27)
--- NOTE | 2024-01-31 14:17 | P.PN_ITS ---
Subjective 2 Subjective: No acute events overnight. Patient seen comfortably sitting in recliner. Seen with multiple family numbers at bedside but denies any chest pain. Complaining of weakness. Remains on room air. Occasional episodes of hypotension overnight. Medications: Reviewed: Yes Vitals/I&O/Wt Last Vital Signs Temp 98.2 F 01/31/24 13:30 Pulse 88 01/31/24 13:30 Resp 32 H 01/31/24 13:30 BP 107/76 01/31/24 13:30 Pulse Ox 96 01/31/24 13:30 O2 Del Method Room Air 01/31/24 13:30 O2 Flow Rate 1.5 01/31/24 06:00 01/30/24 01/31/24 01/31/24 22:59 06:59 14:59 Intake Total 217.625 / 417.625 50 / 467.625 410 / 410 Output Total 100 / 500 100 / 600 550 / 550 Balance 117.625 / -82.375 -50 / -132.375 -140 / -140 Weight last 48 hrs Weight 74.5 kg Weight 73 kg Physical Exam 2 Narrative: GENERAL: Patient is alert, awake and oriented x3. [] NECK: No jugular vein distension. [] HEENT: No cyanosis. No icterus. No pallor. [] HEART: Regular S1 and S2. No murmur, rub or gallop. [] LUNGS: Clear to auscultation CENTRAL NERVOUS SYSTEM: Grossly nonfocal. [] EXTREMITIES: Lower extremities with no edema bilaterally. Urinary Catheter Management: Siddiqui: Cath Placed During This Visit: yes, but has since been removed by the nurse Reason for Continuing Indwelling Catheter: Other Urinary Catheter Date of Insertion: 01/27/24 Urinary Catheter Time of Insertion: 13:47 Date Urinary Catheter Removed: 01/29/24 Time Urinary Catheter Discontinued: 14:40 Data 01/31/24 09:22 01/31/24 09:22 A&P Assessment and plan (1) Shock: Resolved. Cardiogenic versus septic. Admitted with non-ST ovation [place]. Did have left lower lobe pneumonia. Occasional episodes of hypotension overnight. Goal blood pressure less than 140/90 mmHg with mean over 65. Holding off on beta-abel. Urine Legionella, bacterial [place] negative, respiratory viral panel negative. MRSA swab negative. Continue with cefepime and doxycycline. Will continue doxycycline for 3 days to finish her coverage for atypical pneumonia. Remains on room air. Follow-up blood culture. (2) Non-ST elevation [place] (NSTEMI): Continue aspirin, Plavix, statin, not on beta-abel due to hypotension. Check A1c, lipid panel. Coronary artery disease with ischemic cardiomyopathy Status post PCI with stent placement on 01/26 (3) CHF (congestive heart failure): Continue hemodynamic support as above. IV diuretics with Lasix 20 mg every 12 hours. Strict input charting, daily weight. Daily weight. Fluid restriction up to 1500 cc. Holding off on diuretics today given LANA. Echocardiogram shows an EF of 30 to 35% with regional wall motion abnormality. LifeVest being arranged by cardiology team. (4) Atrial fibrillation: In sinus rhythm now. New diagnosis of A-fib with RVR. Continue with amiodarone 400 mg twice daily. Anticoagulation as per cardiology team. 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 Admitted with CHF. CT done yesterday showed patient being fluid responsive. Continue to hold off on Lasix for now. Monitor BMP daily. Plan Cardiac diet Lovenox for DVT prophylaxis Famotidine for PUD prophylaxis PT evaluation. CODE STATUS: Discussed in detail with the patient. Daughter will be the DPOA. Both patient and daughter state that patient has paperwork stating DNR/DNI. Patient want to continue with DNR/DNI for now. CODE STATUS changed in the system. Thank you for involving us in care of Ms. Joiner. 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
--- NOTE | 2024-01-31 15:01 | PC.SOCIAL ---
IMM updated IMM dated and initialed, copy given to patient and copy placed in chart
--- NOTE | 2024-01-31 18:18 | PC.NURSE ---
Shift SUmmary: Patient was up to a chair for most of the shift. Walked about 100feet and worked with physical therapy. Total urine output was 1000mL. Levophed was not needed. Life vest has been ordered, all info faxed to [facility], fax receipt is in the physical chart.
[2024-01-31] MEDS: enoxaparin 30 mg/0.3 mL Syringe SUBCUT (20:24)
[2024-01-31] MEDS: atorvastatin 40 mg Tablet PO (20:24)
[2024-02-01] VITALS (47 sets, daily range): BP systolic 87–139; BP diastolic 47–90; PULSE 70–96; RESP 14–33; TEMP 36.4–36.8; O2SAT 91–99
[2024-02-01 04:42] LABS: Basophils # 0.1 10^3/uL (0.0-0.1); Basophils % 0.7 %; Eosinophils # 0.7 10^3/uL (0.0-0.8); Eosinophils % 7.5 %; Hematocrit 33.6 % (36-47); Lymphocytes # 2.6 10^3/uL (0.8-4.8); Lymphocytes % 29.1 %; Mean Corpuscular HGB Conc 32.4 g/dL (30-55); Mean Corpuscular Hemoglobin 31.2 pg (27-33); Mean Corpuscular Volume 96.3 fl (85-98); Mean Platelet Volume 10.4 fL (7.4-10.4); Monocytes # 1.2 10^3/uL (0.2-0.9); Monocytes % 13.6 %; Neutrophils # 4.28 10^3/uL (1.8-7.7); Neutrophils % 48.3 %; Nucleated Red Blood Cells % 0 %; Platelet Count 255 10^3/cmm (157-399); Red Blood Count 3.49 10^6/uL (3.85-5.65); Red Cell Distribution Width 13.2 % (12.1-15.1); White Blood Count 8.84 10^3/uL (3.29-11.43)
[2024-02-01 05:11] LABS: Alanine Aminotransferase 19 U/L (0-33); Albumin Level 2.9 g/dL (3.5-5.2); Alkaline Phosphatase 56 U/L (35-105); Aspartate Amino Transferase 21 U/L (0-32); Blood Urea Nitrogen 30 mg/dL (8-23); Calcium 8.3 mg/dL (8.5-10.5); Carbon Dioxide 25 mmol/L (22-29); Chloride 103 mmol/L (98-107); Creatinine Clr Calc Pharmacy 33.1362; Globulin 2.7 g/dL (1.3-4.6); Glucose 97 mg/dL (65-115); Osmolality Calculated 292 mOsm/kg (285-295); Sodium 138 mmol/L (136-145); Total Bilirubin 0.4 mg/dL (0.15-1.2); Total Protein 5.6 g/dL (6.6-8.7)
[2024-02-01 05:15] LABS: Chol HDL Ratio 3.07 mg/dL (0.0-4.40); Cholesterol 126 mg/dL (0-200); HDL Cholesterol 41 mg/dL (60-100); LDL Cholesterol Calculated 65 mg/dL (50-129); Magnesium 1.6 mg/dL (1.7-2.3); Triglycerides 99 mg/dL (0-150); VLDL Cholestrol Calculation 20 mg/dL (0-30)
[2024-02-01 05:22] LABS: Folate Level 13.2 ng/mL (4.8-37.3)
[2024-02-01 05:25] LABS: Anion Gap 14.1 (5-19); Potassium 4.1 mmol/L (3.5-5.1)
[2024-02-01] MEDS: magnesium sulfate premix 1 GM/100 ML PIGGYBACK IV (08:42)
[2024-02-01] MEDS: guaiFENesin 600 mg Tablet PO ×2 (08:43→16:55)
[2024-02-01] MEDS: levothyroxine 50 mcg Tablet PO (08:43)
[2024-02-01] MEDS: clopidogrel 75 mg Tablet PO (08:43)
[2024-02-01] MEDS: amiodarone 200 mg Tablet 400 MG PO ×2 (08:43→16:55)
[2024-02-01] MEDS: aspirin 81 mg EC Tablet PO (08:43)
[2024-02-01] MEDS: doxycycline 100 mg Tablet PO ×2 (08:43→16:55)
--- NOTE | 2024-02-01 09:08 | PM.PN ---
Subjective Subjective: Patient is doing well. No chest pain or shortness of breath Vitals/I&O/Wt Last Vital Signs Temp 97.6 F 02/01/24 06:00 Pulse 89 02/01/24 08:30 Resp 24 H 02/01/24 08:30 BP 139/79 02/01/24 08:30 Pulse Ox 95 02/01/24 08:30 O2 Del Method Room Air 01/31/24 18:00 O2 Flow Rate 1.5 01/31/24 06:00 01/31/24 02/01/24 02/01/24 22:59 06:59 14:59 Intake Total 1300 / 1710 60 / 1770 200 / 200 Output Total 650 / 1200 250 / 1450 Balance 650 / 510 -190 / 320 200 / 200 Weight last 48 hrs Weight 166 lb 7.184 oz Weight 166 lb 7.184 oz Weight 164 lb 3.91 oz Physical Exam Narrative: GENERAL: Patient is alert, awake and oriented x3. [] NECK: No jugular vein distension. [] HEENT: No cyanosis. No icterus. No pallor. [] HEART: Regular S1 and S2. No murmur, rub or gallop. [] LUNGS: Clear to auscultation CENTRAL NERVOUS SYSTEM: Grossly nonfocal. [] EXTREMITIES: Lower extremities with no edema bilaterally. Urinary Catheter Management: Siddiqui: Cath Placed During This Visit: yes, but has since been removed by the nurse Reason for Continuing Indwelling Catheter: Other Urinary Catheter Date of Insertion: 01/27/24 Urinary Catheter Time of Insertion: 13:47 Date Urinary Catheter Removed: 01/29/24 Time Urinary Catheter Discontinued: 14:40 Data 02/01/24 04:15 02/01/24 04:15 A&P Assessment and plan (1) Myocardial infarction: (2) CHF (congestive heart failure): (3) Hyperlipidemia: Qualifiers: Hyperlipidemia type: mixed hyperlipidemia Qualified Code(s): E78.2 - Mixed hyperlipidemia (4) HTN (hypertension): Qualifiers: Hypertension type: unspecified Qualified Code(s): I10 - Essential (primary) hypertension (5) Non-ST elevation [place] (NSTEMI): (6) LANA (acute kidney injury): (7) Shock: (8) Atrial fibrillation: Plan Patient had successful PCI of subtotally occluded ostial proximal LAD with 1 stent. Has residual large sized OM stenosis that will be treated as a staged PCI later. Shock has resolved. Started on metoprolol today On PO amiodarone. Staying in normal sinus rhythm. Was brief episode post [place] Continue dual antiplatelet therapy with aspirin and Plavix. After the staged PCI of OM as outpatient, may consider initiation of anticoagulation. Discussed plan with patient. High intensity statin therapy. Antibiotic therapy per medicine team. Appreciate recommendations. Creatinine is improving and is 1.2 now. Has good urine output. Will resume PO lasix 20 mg Lifevest ordered Anticipated discharge home by tomorrow. Attestations Medical Necessity Statement*: Care expected to cross 2 midnights. Patient has recovered from cardiogenic shock. Possible discharge home tomorrow after receives Lifevest Coding Level of Care Code Acute Code for [facility] Diagnoses Myocardial infarction I21.9 CHF (congestive heart failure) I50.9 Mixed hyperlipidemia E78.2 Hyperlipidemia type: mixed hyperlipidemia Hypertension, unspecified type I10 Hypertension type: unspecified Non-ST elevation [place] (NSTEMI) I21.4 LANA (acute kidney injury) N17.9 Shock R57.9 Atrial fibrillation I48.91
[2024-02-01 09:18] LABS: NT Pro B Type Natriuretic Pept 25661 pg/mL (0-450)
[2024-02-01] MEDS: FUROsemide 20 mg Tablet PO ×2 (09:41→16:55)
[2024-02-01] MEDS: cefepime 1,000 MG in sodium chloride 0.9% (plus) 50 ML 100 MG IV ×2 (09:41→23:43)
[2024-02-01] MEDS: metoprolol tartrate 25 mg Tablet PO ×2 (09:41→20:32)
--- NOTE | 2024-02-01 14:23 | P.PN_ITS ---
Subjective 2 Subjective: No acute events overnight. Seen with multiple family numbers at bedside. Patient sitting in recliner. Feeling better. Hemodynamically stable. Saturating well on room air. Denies any chest pain. Medications: Reviewed: Yes Vitals/I&O/Wt Last Vital Signs Temp 97.6 F 02/01/24 06:00 Pulse 72 02/01/24 12:00 Resp 20 H 02/01/24 12:00 BP 122/78 02/01/24 12:00 Pulse Ox 99 02/01/24 12:00 O2 Del Method Room Air 02/01/24 11:26 O2 Flow Rate 1.5 01/31/24 06:00 01/31/24 02/01/24 02/01/24 22:59 06:59 14:59 Intake Total 1300 / 1710 110 / 1820 320 / 320 Output Total 650 / 1200 250 / 1450 Balance 650 / 510 -140 / 370 320 / 320 Weight last 48 hrs Weight 75.5 kg Weight 75.5 kg Weight 74.5 kg Physical Exam 2 Narrative: GENERAL: Patient is alert, awake and oriented x3. [] NECK: No jugular vein distension. [] HEENT: No cyanosis. No icterus. No pallor. [] HEART: Regular S1 and S2. No murmur, rub or gallop. [] LUNGS: Clear to auscultation CENTRAL NERVOUS SYSTEM: Grossly nonfocal. [] EXTREMITIES: Lower extremities with no edema bilaterally. Urinary Catheter Management: Siddiqui: Cath Placed During This Visit: yes, but has since been removed by the nurse Reason for Continuing Indwelling Catheter: Other Urinary Catheter Date of Insertion: 01/27/24 Urinary Catheter Time of Insertion: 13:47 Date Urinary Catheter Removed: 01/29/24 Time Urinary Catheter Discontinued: 14:40 Data 02/01/24 04:15 02/01/24 04:15 A&P Assessment and plan (1) Shock: Resolved. Cardiogenic versus septic. Admitted with non-ST ovation [place]. Did have left lower lobe pneumonia. Occasional episodes of hypotension overnight. Goal blood pressure less than 140/90 mmHg with mean over 65. Holding off on beta-abel. Urine Legionella, bacterial [place] negative, respiratory viral panel negative. MRSA swab negative. Continue with cefepime and doxycycline. Will continue doxycycline for 3 days to finish her coverage for atypical pneumonia. Remains on room air. Follow-up blood culture. (2) Non-ST elevation [place] (NSTEMI): Continue aspirin, Plavix, statin, not on beta-abel due to hypotension. Check A1c, lipid panel. Coronary artery disease with ischemic cardiomyopathy Status post PCI with stent placement on 01/26 (3) CHF (congestive heart failure): Continue hemodynamic support as above. IV diuretics with Lasix 20 mg every 12 hours. Strict input charting, daily weight. Daily weight. Fluid restriction up to 1500 cc. Holding off on diuretics today given LANA. Echocardiogram shows an EF of 30 to 35% with regional wall motion abnormality. LifeVest being arranged by cardiology team. (4) Atrial fibrillation: In sinus rhythm now. New diagnosis of A-fib with RVR. Continue with amiodarone 400 mg twice daily. Anticoagulation as per cardiology team. 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 Admitted with CHF. CT done yesterday showed patient being fluid responsive. Continue to hold off on Lasix for now. Monitor BMP daily. Plan Cardiac diet Lovenox for DVT prophylaxis Famotidine for PUD prophylaxis PT evaluation. CODE STATUS: Discussed in detail with the patient. Daughter will be the DPOA. Both patient and daughter state that patient has paperwork stating DNR/DNI. Patient want to continue with DNR/DNI for now. CODE STATUS changed in the system. Plan for the day: LANA seems to be resolving. Patient seems to be on room air. proBNP elevated but better than on admission. Started on oral diuretics with Lasix 20 mg twice daily as per primary team. Continue with fluid restriction. Strict input charting. Monitor hemodynamics. Target goal blood pressure less than 140/90 mmHg with mean over 65. Started on metoprolol 25 mg twice daily. Will uptitrate metoprolol or add guideline directed medical therapy for CHF in setting of hemodynamics and renal functions. Continue with physical therapy. Check Occupational Therapy. Possible discharge with LifeVest 24 to 48 hours. Most likely plan to discharge home with home health. Discussed in detail with patient's family. They state they will be taking turns and staying with the patient for next few weeks. Patient is agreeable. Transfer to CSU. Thank you for involving us in care of Ms. Joiner. Attestations 2 Medical Necessity Statement*: Requires further hospitalization for management of non-ST elevation [place] post PCI, ischemic cardiomyopathy with congestive heart failure, acute kidney injury while safe discharge planning is sought. 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
[2024-02-01] MEDS: atorvastatin 40 mg Tablet PO (20:32)
[2024-02-01] MEDS: enoxaparin 30 mg/0.3 mL Syringe SUBCUT (20:33)
[2024-02-02] VITALS (12 sets, daily range): BP systolic 114–132; BP diastolic 60–76; PULSE 70–83; RESP 15–23; TEMP 36.3–37; O2SAT 92–96
[2024-02-02 03:42] LABS: Alanine Aminotransferase 27 U/L (0-33); Albumin Level 3.1 g/dL (3.5-5.2); Alkaline Phosphatase 61 U/L (35-105); Aspartate Amino Transferase 31 U/L (0-32); Blood Urea Nitrogen 29 mg/dL (8-23); Calcium 9.3 mg/dL (8.5-10.5); Carbon Dioxide 23 mmol/L (22-29); Chloride 101 mmol/L (98-107); Creatinine Clr Calc Pharmacy 33.3527; Globulin 2.8 g/dL (1.3-4.6); Glucose 86 mg/dL (65-115); Osmolality Calculated 287 mOsm/kg (285-295); Sodium 136 mmol/L (136-145); Total Bilirubin 0.3 mg/dL (0.15-1.2); Total Protein 5.9 g/dL (6.6-8.7)
[2024-02-02 03:51] LABS: Anion Gap 15.9 (5-19); Potassium 3.9 mmol/L (3.5-5.1)
--- NOTE | 2024-02-02 08:23 | P.DS_ITS ---
Discharge Providers Date of Admission: 01/27/24 07:18 Date of Discharge: February 02, 2024 Attending Provider at Admission: Juan Butts M.D Attending Provider at Discharge: Juan Butts M.D Primary Care Provider: JUDY Boss Diagnoses at Discharge Discharge Diagnosis (1) Myocardial infarction: Status: Acute (2) CHF (congestive heart failure): Status: Acute (3) Hyperlipidemia: Status: Acute Qualifiers: Hyperlipidemia type: mixed hyperlipidemia Qualified Code(s): E78.2 - Mixed hyperlipidemia (4) HTN (hypertension): Status: Acute Qualifiers: Hypertension type: unspecified Qualified Code(s): I10 - Essential (primary) hypertension (5) Non-ST elevation CT (NSTEMI): Status: Acute (6) LANA (acute kidney injury): Status: Acute (7) Shock: Status: Acute (8) Atrial fibrillation: Status: Acute Reason for Visit Reason for Visit: muscle spasms in back and neck &shoulder blade Physical Exam Urinary Catheter Management: Siddiqui: Cath Placed During This Visit: yes, but has since been removed by the nurse Reason for Continuing Indwelling Catheter: Other Urinary Catheter Date of Insertion: 01/27/24 Urinary Catheter Time of Insertion: 13:47 Date Urinary Catheter Removed: 01/29/24 Time Urinary Catheter Discontinued: 14:40 Discharge Data Studies Completed and Pending Completed Studies During Hospitalization Category Date Time Status CT kidney stone [id number] Routine Cat Scan 01/28/24 10:08 Completed [employer] request for service Stat Exams 01/27/24 05:51 Completed CXRP [XR chest 1V portable [id number]] Routine Exams 01/27/24 21:20 Completed XR chest 1V portable [id number] Routine Exams 01/29/24 23:09 Completed XR chest 1V portable [id number] Routine Exams 01/31/24 08:05 Completed XR chest 1V portable [id number] Stat Exams 01/27/24 04:22 Completed XR shoulder LT min 2V* [id number] Routine Exams 01/28/24 17:12 Completed CV. echo wo/w contrast [id number] Routine Ultrasound 01/27/24 07:16 Completed Pending at discharge Category Date Time Status Comprehensive Metabolic Panel AM LABS Lab 02/03/24 04:00 Ordered MAG [Magnesium] AM LABS Lab 02/03/24 04:00 Ordered Sputum Culture and Gram Stain Routine Lab 01/27/24 21:21 Uncollected Radiology Impressions Abdomen/Pelvis CT 01/28/24 10:08 IMPRESSION: 1. Small pleural effusions with airspace disease at the lung bases. 2. Diverticulosis. 3. Atherosclerosis. Shoulder X-Ray 01/28/24 17:12 IMPRESSION: No acute findings. Moderate DJD of the glenohumeral joint. Chest X-Ray 01/31/24 08:05 IMPRESSION: Persistent and slightly more prominent bilateral basilar infiltrate/atelectasis Impression: Laboratory Results WBC 8.84 10^3/uL (3.29-11.43) 02/01/24 04:15 RBC 3.49 10^6/uL (3.85-5.65) L 02/01/24 04:15 Hgb 10.90 g/dL (11.27-16.99) L 02/01/24 04:15 Hct 33.6 % (36-47) L 02/01/24 04:15 MCV 96.3 fl (85-98) 02/01/24 04:15 MCH 31.2 pg (27-33) 02/01/24 04:15 MCHC 32.4 g/dL (30-55) 02/01/24 04:15 RDW 13.2 % (12.1-15.1) 02/01/24 04:15 Plt Count 255 10^3/cmm (157-399) 02/01/24 04:15 MPV 10.4 fL (7.4-10.4) 02/01/24 04:15 Neut % (Auto) 48.3 % 02/01/24 04:15 Lymph % (Auto) 29.1 % 02/01/24 04:15 [place] % (Auto) 13.6 % 02/01/24 04:15 Eos % (Auto) 7.5 % 02/01/24 04:15 Baso % (Auto) 0.7 % 02/01/24 04:15 Neut # (Auto) 4.28 10^3/uL (1.8-7.7) 02/01/24 04:15 Lymph # (Auto) 2.6 10^3/uL (0.8-4.8) 02/01/24 04:15 [place] # (Auto) 1.2 10^3/uL (0.2-0.9) H 02/01/24 04:15 Eos # (Auto) 0.7 10^3/uL (0.0-0.8) 02/01/24 04:15 Baso # (Auto) 0.1 10^3/uL (0.0-0.1) 02/01/24 04:15 Nucleated RBC % (auto) 0 % 02/01/24 04:15 Nucleated RBCs # 0.0 /100WBC 02/01/24 04:15 Sodium 136 mmol/L (136-145) 02/02/24 02:46 Potassium 3.9 mmol/L (3.5-5.1) 02/02/24 02:46 Chloride 101 mmol/L (98-107) 02/02/24 02:46 Carbon Dioxide 23 mmol/L (22-29) 02/02/24 02:46 Anion Gap 15.9 (5-19) 02/02/24 02:46 BUN 29 mg/dL (8-23) H 02/02/24 02:46 Creatinine 1.2 mg/dL (0.5-0.9) H 02/02/24 02:46 GFR Calculation Not Reportable 02/02/24 02:46 Glucose 86 mg/dL (65-115) 02/02/24 02:46 POC Glucose 106 mg/dL (70-110) 01/29/24 21:39 Estimat Average Glucose 128 01/31/24 09:22 Hemoglobin A1c 6.1 % (4.0-6.0) H 01/31/24 09:22 Calculated Osmolality 287 mOsm/kg (285-295) 02/02/24 02:46 Calcium 9.3 mg/dL (8.5-10.5) 02/02/24 02:46 Magnesium 2.0 mg/dL (1.7-2.3) 02/02/24 02:46 Iron 105 ug/dL (37-145) 01/31/24 09:22 TIBC 241 mcg/dl 01/31/24 09:22 % Saturation 43.5 % (20-50) 01/31/24 09:22 Unsat Iron Binding 136 ug/dL (112-347) 01/31/24 09:22 Total Bilirubin 0.3 mg/dL (0.15-1.2) 02/02/24 02:46 AST 31 U/L (0-32) 02/02/24 02:46 ALT 27 U/L (0-33) 02/02/24 02:46 Alkaline Phosphatase 61 U/L (35-105) 02/02/24 02:46 Troponin T Baseline 1163 ng/L (0-10) H* 01/27/24 04:38 Troponin T 120 Minute 2890 ng/L (0-10) H 01/27/24 08:32 Delta Troponin T 1727 ABS# (0-10) H* 01/27/24 08:32 Troponin T Hi Sens 6Hr 3879 ng/L (0-10) H 01/27/24 10:57 Troponin T Hi Sens 6Hr Delta 2716 ng/L (0-12) H* 01/27/24 10:57 NT-Pro-B Natriuret Pep 63719 pg/mL (0-450) H 02/01/24 04:15 Total Protein 5.9 g/dL (6.6-8.7) L 02/02/24 02:46 Albumin 3.1 g/dL (3.5-5.2) L 02/02/24 02:46 Globulin 2.8 g/dL (1.3-4.6) 02/02/24 02:46 Triglycerides 99 mg/dL (0-150) 02/01/24 04:15 Cholesterol 126 mg/dL (0-200) 02/01/24 04:15 LDL Cholesterol, Calc 65 mg/dL (50-129) 02/01/24 04:15 Total VLDL Cholesterol 20 mg/dL (0-30) 02/01/24 04:15 HDL Cholesterol 41 mg/dL (60-100) L 02/01/24 04:15 Cholesterol/HDL Ratio 3.07 mg/dL (0.0-4.40) 02/01/24 04:15 Vitamin B12 323 pg/mL (232-1245) 01/31/24 09:22 Folate 13.2 ng/mL (4.8-37.3) 02/01/24 04:15 Procalcitonin 0.19 ng/mL (0-0.5) 01/31/24 09:22 TSH 1.49 uIU/mL (0.27-4.20) 01/28/24 03:54 Urine Color Yellow (Yellow) 01/27/24 21:40 Urine Appearance Cloudy (CLEAR) A 01/27/24 21:40 Urine pH 5.0 (5-7) 01/27/24 21:40 Ur Specific [place] 1.060 (1.005-1.030) H 01/27/24 21:40 Urine Protein 1+ (Negative) A 01/27/24 21:40 Urine Glucose (UA) Negative (Normal) 01/27/24 21:40 Urine Ketones Negative (Negative) 01/27/24 21:40 Urine Blood 3+ (Negative) A 01/27/24 21:40 Urine Nitrate Negative (Negative) 01/27/24 21:40 Urine Bilirubin Negative (Negative) 01/27/24 21:40 Urine Urobilinogen 1.0 mg/dL (Negative) 01/27/24 21:40 Ur Leukocyte Esterase Negative (Negative) 01/27/24 21:40 Urine RBC 21-50 /hpf (0-2) H 01/27/24 21:40 Urine WBC 11-20 /hpf (0-5) H 01/27/24 21:40 Ur Squamous Epith Cells 0-5 /hpf (0-5) 01/27/24 21:40 Amorphous Sediment Not Reportable 01/27/24 21:40 Urine Bacteria 1+ /hpf (NONE) H 01/27/24 21:40 Hyaline Casts 18.18 /lpf 01/27/24 21:40 Vancomycin Trough 6.0 ug/mL (10-15) L 01/31/24 21:23 Adenovirus (PCR) Not detected (NOT DETECT) 01/29/24 11:39 C. pneumoniae DNA (PCR) Not detected (NOT DETECT) 01/29/24 11:39 Coronavirus 229E (PCR) Not detected (NOT DETECT) 01/29/24 11:39 Human Metapneumovir PCR Not detected (NOT DETECT) 01/29/24 11:39 Influenza A (H1) PCR Not detected (NOT DETECT) 01/29/24 11:39 Influ A (H1/09) PCR Not detected (NOT DETECT) 01/29/24 11:39 Influenza A (H3) PCR Not detected (NOT DETECT) 01/29/24 11:39 Influenza Type A (PCR) Not detected (NOT DETECT) 01/29/24 11:39 Influenza Type B (PCR) Not detected (NOT DETECT) 01/29/24 11:39 M. pneumoniae (PCR) Not detected (NOT DETECT) 01/29/24 11:39 Parainfluenza 1 (PCR) Not detected (NOT DETECT) 01/29/24 11:39 Parainfluenza 2 (PCR) Not detected (NOT DETECT) 01/29/24 11:39 Parainfluenza 3 (PCR) Not detected (NOT DETECT) 01/29/24 11:39 Parainfluenza 4 (PCR) Not detected (NOT DETECT) 01/29/24 11:39 RSV Type A (PCR) Not detected (NOT DETECT) 01/29/24 11:39 RSV Type B (PCR) Not detected (NOT DETECT) 01/29/24 11:39 Entero/Rhino (PCR) Not detected (NOT DETECT) 01/29/24 11:39 SARS-CoV-2 (PCR) Not detected (NOT DETECT) 01/29/24 11:39 MRSA (PCR) Not detected (NOT DETECTED) 01/27/24 21:40 Vitals Last Vital Signs Temp 97.4 F L 02/02/24 00:00 Pulse 79 02/02/24 06:00 Resp 20 H 02/02/24 06:00 BP 123/69 02/02/24 06:00 Pulse Ox 94 02/02/24 06:00 O2 Del Method Room Air 02/01/24 11:26 O2 Flow Rate 1.5 01/31/24 06:00 Discharge Plan Discharge Patient Disposition: Home Condition: Serious Prescriptions: No Action prednisone 10 mg tablet 10 mg PO BID 3 Days Qty: 6 0RF Rx Instructions: Take with breakfast and lunch alendronate 70 mg tablet See Rx Instructions .ROUTE .COMPLEX Qty: 12 0RF Dose Instruction: TAKE 1 TABLET BY MOUTH ONCE WEEKLY Rx Instructions: TAKE 1 TABLET BY MOUTH ONCE WEEKLY ON MONDAY. levothyroxine 50 mcg tablet See Rx Instructions .ROUTE .COMPLEX Qty: 90 0RF Dose Instruction: TAKE 1 TABLET BY MOUTH EVERY DAY Rx Instructions: TAKE 1 TABLET BY MOUTH EVERY DAY metoprolol tartrate 100 mg tablet 100 mg PO DAILY baclofen 10 mg tablet 10 mg PO BEDTIME furosemide 20 mg tablet 20 mg PO BID lisinopril 40 mg tablet 40 mg PO DAILY Other Ambulatory Orders: DME: Jose (Order) Location: None Selected Ordered By: Roberto Chiang Referrals: Wendy Johnston FNP [Primary Care Provider] - Patient Instructions: Opioid Safety Coding Level of Care Code Acute Code for Chg Fwd Diagnoses Myocardial infarction I21.9 CHF (congestive heart failure) I50.9 Mixed hyperlipidemia E78.2 Hyperlipidemia type: mixed hyperlipidemia Hypertension, unspecified type I10 Hypertension type: unspecified Non-ST elevation CT (NSTEMI) I21.4 LANA (acute kidney injury) N17.9 Shock R57.9 Atrial fibrillation I48.91
[2024-02-02] MEDS: aspirin 81 mg EC Tablet PO (08:27)
[2024-02-02] MEDS: amiodarone 200 mg Tablet 400 MG PO (08:27)
[2024-02-02] MEDS: FUROsemide 20 mg Tablet PO (08:27)
[2024-02-02] MEDS: levothyroxine 50 mcg Tablet PO (08:27)
[2024-02-02] MEDS: doxycycline 100 mg Tablet PO (08:27)
[2024-02-02] MEDS: clopidogrel 75 mg Tablet PO (08:27)
[2024-02-02] MEDS: guaiFENesin 600 mg Tablet PO (08:27)
[2024-02-02] MEDS: metoprolol tartrate 25 mg Tablet PO (08:31)
--- NOTE | 2024-02-02 09:03 | P.PN_ITS ---
Subjective 2 Subjective: No acute events overnight. Patient continues to do well. Hemodynamically has remained stable. Breathing better. Denies any chest pain. Seen with multiple family numbers at bedside. Medications: Reviewed: Yes Vitals/I&O/Wt Last Vital Signs Temp 98.6 F 02/02/24 08:00 Pulse 83 02/02/24 08:00 Resp 15 02/02/24 08:00 BP 117/70 02/02/24 08:00 Pulse Ox 95 02/02/24 08:00 O2 Del Method Room Air 02/01/24 11:26 O2 Flow Rate 1.5 01/31/24 06:00 02/01/24 02/02/24 02/02/24 22:59 06:59 14:59 Intake Total 200 / 570 150 / 720 200 / 200 Output Total 1100 / 1100 600 / 1700 Balance -900 / -530 -450 / -980 200 / 200 Weight last 48 hrs Weight 75.5 kg Weight 75.5 kg Physical Exam 2 Narrative: GENERAL: Patient is alert, awake and oriented x3. [] NECK: No jugular vein distension. [] HEENT: No cyanosis. No icterus. No pallor. [] HEART: Regular S1 and S2. No murmur, rub or gallop. [] LUNGS: Clear to auscultation CENTRAL NERVOUS SYSTEM: Grossly nonfocal. [] EXTREMITIES: Lower extremities with no edema bilaterally. Urinary Catheter Management: Siddiqui: Cath Placed During This Visit: yes, but has since been removed by the nurse Reason for Continuing Indwelling Catheter: Other Urinary Catheter Date of Insertion: 01/27/24 Urinary Catheter Time of Insertion: 13:47 Date Urinary Catheter Removed: 01/29/24 Time Urinary Catheter Discontinued: 14:40 Data 02/01/24 04:15 02/02/24 02:46 Micro: Microbiology 01/27/24 22:46 Blood Culture - Final Blood NO GROWTH AFTER 5 DAYS 01/27/24 22:40 Blood Culture - Final Blood NO GROWTH AFTER 5 DAYS A&P Assessment and plan (1) Shock: Resolved. Cardiogenic versus septic. Admitted with non-ST ovation OH. Did have left lower lobe pneumonia. Occasional episodes of hypotension overnight. Goal blood pressure less than 140/90 mmHg with mean over 65. Holding off on beta-abel. Urine Legionella, bacterial [place] negative, respiratory viral panel negative. MRSA swab negative. Continue with cefepime and doxycycline. Will continue doxycycline for 3 days to finish her coverage for atypical pneumonia. Remains on room air. Follow-up blood culture. (2) Non-ST elevation OH (NSTEMI): Continue aspirin, Plavix, statin, not on beta-abel due to hypotension. Check A1c, lipid panel. Coronary artery disease with ischemic cardiomyopathy Status post PCI with stent placement on 01/26 (3) CHF (congestive heart failure): Continue hemodynamic support as above. IV diuretics with Lasix 20 mg every 12 hours. Strict input charting, daily weight. Daily weight. Fluid restriction up to 1500 cc. Holding off on diuretics today given LANA. Echocardiogram shows an EF of 30 to 35% with regional wall motion abnormality. LifeVest being arranged by cardiology team. (4) Atrial fibrillation: In sinus rhythm now. New diagnosis of A-fib with RVR. Continue with amiodarone 400 mg twice daily. Anticoagulation as per cardiology team. 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 Admitted with CHF. CT done yesterday showed patient being fluid responsive. Continue to hold off on Lasix for now. Monitor BMP daily. Plan Cardiac diet Lovenox for DVT prophylaxis Famotidine for PUD prophylaxis PT evaluation. CODE STATUS: Discussed in detail with the patient. Daughter will be the DPOA. Both patient and daughter state that patient has paperwork stating DNR/DNI. Patient want to continue with DNR/DNI for now. CODE STATUS changed in the system. Plan for the day: LANA seems to be resolving. Creatinine stable. Plan to discharge as per primary team. Can go home on Lasix 20 mg oral daily, dual antiplatelet therapy, low-dose metoprolol which will be uptitrated as per primary team. NAE/ARB as per primary team. Patient should be discharged on oral Augmentin twice daily for 2 more days. Continue with amiodarone. Holding off on anticoagulation for now as patient requires staged procedure as an outpatient. Discussed with the patient and she is agreeable to hold off on anticoagulation for now. LifeVest. Med rec completed Thank you for involving us in care of Ms. Joiner. Attestations 2 Medical Necessity Statement*: Being discharged after management of non-ST elevation OH post PCI, ischemic cardiomyopathy, atrial fibrillation, LANA while safe discharge planning is sought. 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
--- NOTE | 2024-02-02 13:07 | PC.NURSE ---
All D/C instructions to patient and daughters. IV and picc lines dc. transported home by daughter
== END 2024-02-02 13:36 | disposition home or self-care (01) | DRG 321 ==
LOC: ER 01-27 05:25 → CCL 01-27 05:57 → ICU 01-27 07:19
PROVIDERS: Internal Medicine; Student in an Organized Health Care Education/Training Program; Admitting Provider Internal Medicine; Emergency Provider Emergency Medicine; PCP Nurse Practitioner Family; Visit Provider Internal Medicine
PROC: 027135Z Dilation of Coronary Artery, Two Arteries with Two Drug-eluting Intraluminal Devices, Percutaneous Approach (ICD-10-PCS; principal; 2024-01-27 06:00)
PROC: 027135Z Dilation of Coronary Artery, Two Arteries with Two Drug-eluting Intraluminal Devices, Percutaneous Approach (ICD-10-PCS; 2024-01-27 06:00)
DX: I21.4 Non-ST elevation (NSTEMI) myocardial infarction (principal); I50.21 Acute systolic (congestive) heart failure; I50.33 Acute on chronic diastolic (congestive) heart failure; J18.9 Pneumonia, unspecified organism; R57.9 Shock, unspecified; N17.9 Acute kidney failure, unspecified; I11.0 Hypertensive heart disease with heart failure; E78.2 Mixed hyperlipidemia; M81.0 Age-related osteoporosis without current pathological fracture; E03.4 Atrophy of thyroid (acquired); I27.20 Pulmonary hypertension, unspecified; I48.91 Unspecified atrial fibrillation; M62.830 Muscle spasm of back; N14.11 Contrast-induced nephropathy; T50.8X5A Adverse effect of diagnostic agents, initial encounter; I95.9 Hypotension, unspecified; Z11.52 Encounter for screening for COVID-19; I25.5 Ischemic cardiomyopathy
CPT/HCPCS: 36415; 36416; 36573; 36592; 51702; 71045; 73030; 74176; 80048; 80053; 80061; 80202; 81001; 82607; 82746; 82962; 83036; 83540; 83550; 83735; 83880; 84145; 84443; 84484; 85025; 85347; 86403; 87040; 87086; 87449; 87486; 87581; 87633; 87641; 92978; 93005; 93458; 96372; 96374; 96375; 96376; 97110; 97116; 97162; 97165; 99152; 99153; 99285; C1725; C1751; C1753; C1760; C1769; C1874; C1887; C1894; C8929; C9600; G0269; J0283; J0692; J1644; J1650; J1940; J2250; J2270; J2405; J3010; J3370; J3475; J7030; J7050; Q9967

== ENCOUNTER → 2024-02-07 12:29 | Outpatient (BNVA) | payer MEDICARE, MEDICAID, SELFPAY | PROVIDERS: PCP Nurse Practitioner Family; Visit Provider Nurse Practitioner Family | DX: Z09 Encounter for follow-up examination after completed treatment for conditions other than malignant neoplasm (principal) | CPT/HCPCS: 99214 ==

== ENCOUNTER 2024-02-15 09:27 | Outpatient (CLI) | payer MEDICARE, MEDICAID, SELFPAY ==
[2024-02-15 10:17] LABS: Basophils # 0.1 10^3/uL (0.0-0.1); Basophils % 1.3 %; Eosinophils # 0.3 10^3/uL (0.0-0.8); Eosinophils % 3.8 %; Hematocrit 39.7 % (36-47); Lymphocytes # 2.7 10^3/uL (0.8-4.8); Lymphocytes % 30.6 %; Mean Corpuscular HGB Conc 31.7 g/dL (30-55); Mean Corpuscular Hemoglobin 31.7 pg (27-33); Mean Platelet Volume 10.5 fL (7.4-10.4); Monocytes % 10.9 %; Neutrophils # 4.68 10^3/uL (1.8-7.7); Neutrophils % 53.1 %; Nucleated Red Blood Cells % 0 %; Platelet Count 291 10^3/cmm (157-399); Red Blood Count 3.97 10^6/uL (3.85-5.65); Red Cell Distribution Width 13.3 % (12.1-15.1)
[2024-02-15 10:31] LABS: INR 0.96 (0.83-1.21); Prothrombin Time (Patient) 13.1 Seconds (12.0-15.1)
[2024-02-15 10:38] LABS: Anion Gap 14.8 (5-19); Blood Urea Nitrogen 30 mg/dL (8-23); Calcium 9.9 mg/dL (8.5-10.5); Carbon Dioxide 32 mmol/L (22-29); Chloride 100 mmol/L (98-107); Glucose 83 mg/dL (65-115); Osmolality Calculated 299 mOsm/kg (285-295); Potassium 4.8 mmol/L (3.5-5.1); Sodium 142 mmol/L (136-145)
== END 2024-02-15 09:28 | disposition home or self-care (01) ==
LOC: LAB 09:29
PROVIDERS: PCP Nurse Practitioner Family; Visit Provider Internal Medicine
DX: I25.10 Atherosclerotic heart disease of native coronary artery without angina pectoris (principal); I48.91 Unspecified atrial fibrillation; I10 Essential (primary) hypertension; R58 Hemorrhage, not elsewhere classified
CPT/HCPCS: 36415; 80048; 85025; 85610

== ENCOUNTER 2024-02-19 05:45 | Outpatient (CLI) | payer MEDICARE, MEDICAID, SELFPAY ==
[2024-02-19] VITALS (31 sets, daily range): BP systolic 87–160; BP diastolic 52–95; PULSE 51–69; RESP 4–22; TEMP 36.4–36.8; O2SAT 91–97; BMI 28.0
[2024-02-19] MEDS: sodium chloride 0.9% 1,000 ML 100 ML IV (06:15)
[2024-02-19 06:39] LABS: Anion Gap 15.3 (5-19); Blood Urea Nitrogen 32 mg/dL (8-23); Calcium 10.1 mg/dL (8.5-10.5); Carbon Dioxide 30 mmol/L (22-29); Chloride 99 mmol/L (98-107); Creatinine Clr Calc Pharmacy 27.8771; Glucose 102 mg/dL (65-115); Osmolality Calculated 297 mOsm/kg (285-295); Potassium 4.3 mmol/L (3.5-5.1); Sodium 140 mmol/L (136-145)
--- NOTE | 2024-02-19 07:30 | XACV_ITS ---
Exam Room: 2 Ht: 160 cm Wt: 72 kg BSA: 1.81 m2 Gender: Female : 1940 Any Known Allergies: No known allergies Exam Priority: Routine Procedure(s): Procedure Description: PCI procedure Procedure Description: Drug Eluting Coronary Stent Procedure Description: PTCA Procedure Description: Miscellaneous Procedure Description: ACT Procedure Description: Coronary Angiography Diagnostic Cath Status: Elective Diagnostic Findings * INDICATION: This is a staged PCI of OM 1. For complete coronary anatomy, please refer to diagnostic report from 01/27/2024. * Patent prior ostial to proximal LAD stent. Severe OM 1 stenosis. s/p successful revascularization of OM with 1 stent. * First Obtuse Marginal Branch Segment: significant 80% stenosis, BRENNAN: 3 flow. PCI Status: Elective PCI Indication: Staged PCI Interventional Findings * Procedure detail: We engaged left main artery with XB 3.0 guide catheter. 0.014 run-through guidewire was used to cross the OM stenosis and was placed in distal vessel. We predilated the stenosis with 2.5 x 15 mm semicompliant balloon. This was followed by placement of 2.5 x 22 mm resolute Bill drug-eluting stent. At this time final angiogram was performed that showed excellent stent expansion, no residual stenosis and BRENNAN-3 flow. Guidewire and guide catheter were removed. Patient left the Ham Stripper in stable condition.. * First Obtuse Marginal Branch Segment to First Obtuse Marginal Branch Segment: 80% stenosis treated with a AB TREK 2.50X15 RX BALLOON, and MDT R BILL 2.5X22 ANDRES. 0% residual stenosis, BRENNAN: 3 flow. Conclusions 1. Patent prior ostial to proximal LAD stent. Severe OM 1 stenosis. s/p successful revascularization of OM with 1 stent. 2. First Obtuse Marginal Branch Segment to First Obtuse Marginal Branch Segment was treated with a Balloon, and Drug Eluting Stent. Recommendations * Continue dual antiplatelet therapy with aspirin and plavix. * Outpatient cardiology follow up in 2 weeks. Interventional RX Recommendation: PCI w/o planned CABG Diagnostic RX Recommendation: PCI w/o planned CABG Anticoagulation: Heparin Pressures Phase:Rest AO : 74 / 50 ( 62 ) @ 9:54:00 AM 117 / 71 ( 93 ) @ 9:56:00 AM 117 / 49 ( 78 ) @ 10:02:00 AM Clinical Evaluation EBL: 5mL-10mL Procedural Details Procedure Consent Obtained. Admit Source: Out Patient. Pre-Procedure Time Out. Identified patient by full name and date of as verbalized by the patient/guarantor. Does the consent match the physician's order: Yes. Accurate & Complete Informed Consent: Yes. Inpatient/Outpatient History & Physical on Chart: Yes. If H&P is completed, is and addenduem needed: No; If yes, is the addendum complete: N/A. Visualize and Verify Site with Patient/Guarantor: N/A. Relevant Radiology Images available: Yes. The risks, benefits, and alternatives of sedation and/or procedure were discussed by physician. The patient agrees to continue. Procedure started. [facility] Clinical Fraility Score: 4: Vulnerable. Ham Stripper Indications: Stable Known CAD. Chest Pain Symptom Assessment: Typical Angina Symptoms. Correct patient, site and procedure confirmed by cath team. Current diagnosis: Chest Pain. PERRLA. Strong, equal hand director digital bilaterally. Lungs clear x 5 lobes. IV Site on Arrival: 20 gauge in the left anticubital. IV Fluids: 0.9% NaCl at KVO. 200 mL infused prior to grinding and polishing laborer. Pre Procedural Pulses: bilateral radial was 1+. Pre Procedural Pulses: bilateral posterior tibial was Doppled. Pre Procedural Pulses: right dorsalis pedis was 2+. Pre Procedural Pulses: left dorsalis pedis was Doppled. Oxygen started at 2liters/min via nasal canula. right radial was prepped with chloroprep then draped in the usual sterile fashion. right groin was prepped with chloroprep then draped in the usual sterile fashion. Physician notified. Baseline sample Acquired. HR: 63 BPM. Physician arrived. Physician scrubbed in. Immediate Pre-Procedure Time Out. Correct Patient: Yes; Correct Procedure: Yes; Correct Site: Yes; Correct Patient Position: Yes; Correct Supplies: Yes; Dried Flammable Prep: Yes; Blood Products Available: No;. Lidocaine 1% infiltrated to the right radial. Arterial access obtained. 6 luxembourger XB 3 guide catheter was inserted over the wire. Unable to advance wire. Guide catheter out. Hand injection through sheath. Exchange wire out. 6 luxembourger XB 3 guide catheter was inserted over the glidewire. Add inventory: Co-airline pilot/first officer , Endoflator. View taken of left coronary artery. Runthrough guidewire was advanced through the guide catheter to lesion in the OM. Balloon inserted to lesion in the proximal OM. Inflation number : 1 A AB TREK 2.50X15 RX BALLOON was prepped and advanced across the 1st Ob Fiordaliza , then inflated to 8 YAMILE for 0:08 seconds. Balloon out. Bolus stopped as verbal orders from Dr. Butts. Stent inserted to lesion in the proximal 1st OM. Inflation Number : 2 A TAPAN R IBLL 2.5X22 ANDRES -Lot Number# [id number] EXP 01-19-2026 was prepped and advanced across the 1st Ob Fiordaliza. The stent was deployed at 12 YAMILE for 0:16 seconds. Stent balloon out over wire. Wire out. Results checked. ACT drawn. Results 256 seconds. Therapeutic limits - pre-heparin administration 90-150 seconds and monitoring heparin during a vascular procedure >250 seconds. Guide catheter out. A TR Band was successful obtaining hemostatsis at the Right Radial artery insertion site. Post Procedure: Pulses reassessed and unchanged. PERRLA. Strong, equal hand director digital bilaterally. No VTE prophylaxis required. Medication's Wasted: Nitro = 49.8 mg. Medication's Wasted: Lidocaine 1% = 18 mL. Total IV fluids: 100 mL. Post-op diagnosis: Severe 1st OM stenosis, status post PCI placement of 1 stent. Complications: None. Estimated blood loss: 5mL-10mL. Responsiveness - Normal response to verbal stimuli; alert and oriented, PERRLA. Airway - Unaffected, no intervention required; spontaneous ventilation. Circulation: W/N/L, pulses unchanged. Nausea/Vomiting: No. Procedure completed. Patient transferred by wheelchair to CPRU. Vital chart was stopped. Access Site Site: Right Radial artery Sheath Size: 6 Fr Hemostasis Method: TR Band Hemostasis Success: Successful Procedure Medications Start: 8:28 AM Stop: 8:28 AM Medication: Versed Amount: 1 mg Route: I.V. Start: 8:28 AM Stop: 8:28 AM Medication: Fentanyl Amount: 50 mcg Route: I.V. Start: 8:39 AM Stop: 8:39 AM Medication: Versed Amount: 1 mg Route: I.V. Start: 8:39 AM Stop: 8:39 AM Medication: Fentanyl Amount: 50 mcg Route: I.V. Start: 8:39 AM Stop: 8:39 AM Medication: Nitrogylcerin Amount: 200 mcg Route: I.A. Start: 8:45 AM Stop: 8:45 AM Medication: Heparin Amount: 5000 units Route: I.V. Start: 8:53 AM Stop: 8:53 AM Medication: Neosynephrine Amount: 100 mcg Route: I.V. Start: 8:54 AM Stop: 8:54 AM Medication: 0.9% Saline Amount: 200 ml Route: I.V. bolus Start: 8:55 AM Stop: 8:55 AM Medication: Heparin Amount: 1000 units Route: I.V. Start: 9:03 AM Stop: 9:03 AM Medication: Plavix Amount: 300 mg Route: P.O. I, the attending physician, have reviewed and verified all procedure medications. Yes, all medications given per verbal order History/Risk Factors Hypertension: Yes Dyslipidemia: Yes Peripheral Arterial Disease (PAD): No Myocardial Infarction (FL): Yes Obesity: No Renal Disease: No Tobacco Use: Never Prior Interventions PCI: Yes CABG: No Valve Surgery: No Date of PCI: 01/27/2024 Report Signatures Finalized by Juan Butts MD on 02/25/2024 01:11 PM
[2024-02-19] MEDS: diphenhydrAMINE 50 mg Capsule PO (07:44)
--- NOTE | 2024-02-19 08:22 | W.PM.OPSUD ---
Surgery/Procedure H&P Update DATE OF PROCEDURE: February 19, 2024 DATE H&P PERFORMED: 02/07/24 H&P UPDATE INFORMATION: I have reviewed H&P completed within last 30 days, I have examined patient prior to procedure and No changes to prior documentation PREOP DIAGNOSIS: Severe OM 1 stenosis PRIMARY INDICATION FOR PROCEDURE: Severe OM 1 stenosis PLANNED PROCEDURE: Operation Date: 02/19/24 08:30 Proposed Procedures p Percutaneous Coronary Intervention - Staged PCI(Not Applicable) - Juan Butts M.D PATIENT REASSESSED PRIOR TO SEDATION, WITH NO CHANGE NOTED: Yes PHYSICAL EXAM: alert, oriented x 3, clear to auscultation bilaterally and regular rate & rhythm AIRWAY EVAL/ANESTHESIA PLAN: normal airway, ASA III, Local Anesthesia, Risks, benefits & alternatives of sedation and/or procedure discussed and Patient agrees to continue as planned
--- NOTE | 2024-02-19 09:59 | PC.NURSE ---
Patient received from woven label designer via stretcher. Patient is s/p [facility] with right radial access and TR Band in place. Patient has palpable pulse to right upper extremity with no s/s of bleeding or hematoma formation observed. Instructed patient on site care restrictions. Patient verbalized understanding. Patient has family at bedside. Will continue to monitor.
--- NOTE | 2024-02-19 11:47 | PC.NURSE ---
Fluid to run at 50ml/hr for [address] Butts
--- NOTE | 2024-02-19 15:54 | PC.NURSE ---
Initiated TR Band removal at 0945 removing 2ml of air every 15-20 min. TR band off at 1250. Started to cover with 2x2 and coban. Noticed dark spot appear. Removed dressing and patient had profuse bleeding. Held pressure and replaced TR band with 10ml of air. Hemostasis achieved. Informed ELENO Sandy in slab conditioner supervisor and asked him to check for proper placement.. Placement is appropriate. Bruising noted above and under the TR Band. Removing air slowly at this time. Instructed patient on plan for removal and site care restrictions. Patient verbalized complete understanding. Patient denies pain to site. No further bleeding observed. Will continue to monitor.
[2024-02-19] MEDS: atorvastatin 40 mg Tablet PO (20:52)
[2024-02-19] MEDS: metoprolol tartrate 25 mg Tablet PO (20:52)
[2024-02-20] VITALS: BP 118/63; PULSE 60; RESP 16; O2SAT 92
[2024-02-20 02:45] LABS: Basophils # 0.1 10^3/uL (0.0-0.1); Basophils % 0.9 %; Eosinophils # 0.4 10^3/uL (0.0-0.8); Eosinophils % 4.8 %; Hematocrit 34.6 % (36-47); Lymphocytes # 2.6 10^3/uL (0.8-4.8); Lymphocytes % 29.4 %; Mean Corpuscular HGB Conc 31.5 g/dL (30-55); Mean Corpuscular Hemoglobin 31.4 pg (27-33); Mean Corpuscular Volume 99.7 fl (85-98); Monocytes % 11.3 %; Neutrophils # 4.78 10^3/uL (1.8-7.7); Neutrophils % 53.4 %; Nucleated Red Blood Cells % 0 %; Platelet Count 191 10^3/cmm (157-399); Red Blood Count 3.47 10^6/uL (3.85-5.65); Red Cell Distribution Width 13.3 % (12.1-15.1); White Blood Count 8.95 10^3/uL (3.29-11.43)
[2024-02-20 03:04] LABS: Anion Gap 11.4 (5-19); Blood Urea Nitrogen 23 mg/dL (8-23); Carbon Dioxide 29 mmol/L (22-29); Chloride 104 mmol/L (98-107); Creatinine Clr Calc Pharmacy 32.5233; Glucose 107 mg/dL (65-115); Osmolality Calculated 294 mOsm/kg (285-295); Potassium 4.4 mmol/L (3.5-5.1); Sodium 140 mmol/L (136-145)
[2024-02-20 04:32] VITALS: BP 124/88; PULSE 64; RESP 18; TEMP 36.8; O2SAT 93
[2024-02-20 06:00] VITALS: PULSE 63
[2024-02-20] MEDS: levothyroxine 50 mcg Tablet PO (06:30)
--- NOTE | 2024-02-20 07:28 | PC.NURSE ---
late entry Removed TR Band at 1900 on 02/19/24. Bruising observed to site. No further s/s of bleeding or hematoma formation observed. Dr Butts in to see patient and is aware of first failed attempt of TR Band removal and replacement. Patient denies pain to site. Will continue to monitor.
[2024-02-20 07:46] VITALS: BP 149/83; PULSE 62; RESP 25; TEMP 36.7; O2SAT 93
--- NOTE | 2024-02-20 08:22 | P.DS_ITS ---
Discharge Providers Date of Admission: 02/19/2024 Date of Discharge: February 20, 2024 Attending Provider at Admission: Juan Butts MD Attending Provider at Discharge: Juan Butts M.D Primary Care Provider: JUDY Boss Reason for Visit Reason for Visit: I25.10 Brief History: 83-year-old woman who was admitted for h igh risk NSTEMI and cardiogenic shock few weeks back is here for staged PCI of OM branch. Hospital Course Hospital Course Patient had successful revascularization of OM vessel with 1 stent. Was observed overnight and stayed stable. Creatinine was stable on follow up lab. She was discharged home in a stable condition on aspirin and Plavix. Physical Exam Narrative: GENERAL: Patient is alert, awake and oriented x3. [] NECK: No jugular vein distension. [] HEENT: No cyanosis. No icterus. No pallor. [] HEART: Regular S1 and S2. No murmur, rub or gallop. [] LUNGS: Clear to auscultation CENTRAL NERVOUS SYSTEM: Grossly nonfocal. [] EXTREMITIES: Lower extremities with no edema bilaterally. Urinary Catheter Management: Siddiqui: Cath Placed During This Visit: yes, but has since been removed by the nurse Reason for Continuing Indwelling Catheter: Other Urinary Catheter Date of Insertion: 01/27/24 Urinary Catheter Time of Insertion: 13:47 Date Urinary Catheter Removed: 01/29/24 Time Urinary Catheter Discontinued: 14:40 Discharge Data Studies Completed and Pending Pending at discharge Category Date Time Status TRANSLATION DIRECTOR request for service Routine Exams 02/19/24 07:30 Taken Laboratory Results WBC 8.95 10^3/uL (3.29-11.43) 02/20/24 02:22 RBC 3.47 10^6/uL (3.85-5.65) L 02/20/24 02:22 Hgb 10.90 g/dL (11.27-16.99) L 02/20/24 02:22 Hct 34.6 % (36-47) L 02/20/24 02:22 MCV 99.7 fl (85-98) H 02/20/24 02:22 MCH 31.4 pg (27-33) 02/20/24 02:22 MCHC 31.5 g/dL (30-55) 02/20/24 02:22 RDW 13.3 % (12.1-15.1) 02/20/24 02:22 Plt Count 191 10^3/cmm (157-399) 02/20/24 02:22 MPV 11.0 fL (7.4-10.4) H 02/20/24 02:22 Neut % (Auto) 53.4 % 02/20/24 02:22 Lymph % (Auto) 29.4 % 02/20/24 02:22 [place] % (Auto) 11.3 % 02/20/24 02:22 Eos % (Auto) 4.8 % 02/20/24 02:22 Baso % (Auto) 0.9 % 02/20/24 02:22 Neut # (Auto) 4.78 10^3/uL (1.8-7.7) 02/20/24 02:22 Lymph # (Auto) 2.6 10^3/uL (0.8-4.8) 02/20/24 02:22 [place] # (Auto) 1.0 10^3/uL (0.2-0.9) H 02/20/24 02:22 Eos # (Auto) 0.4 10^3/uL (0.0-0.8) 02/20/24 02:22 Baso # (Auto) 0.1 10^3/uL (0.0-0.1) 02/20/24 02:22 Nucleated RBC % (auto) 0 % 02/20/24 02:22 Nucleated RBCs # 0.0 /100WBC 02/20/24 02:22 Sodium 140 mmol/L (136-145) 02/20/24 02:22 Potassium 4.4 mmol/L (3.5-5.1) 02/20/24 02:22 Chloride 104 mmol/L (98-107) 02/20/24 02:22 Carbon Dioxide 29 mmol/L (22-29) 02/20/24 02:22 Anion Gap 11.4 (5-19) 02/20/24 02:22 BUN 23 mg/dL (8-23) 02/20/24 02:22 Creatinine 1.2 mg/dL (0.5-0.9) H 02/20/24 02:22 GFR Calculation Not Reportable 02/20/24 02:22 Glucose 107 mg/dL (65-115) 02/20/24 02:22 Calculated Osmolality 294 mOsm/kg (285-295) 02/20/24 02:22 Calcium 9.0 mg/dL (8.5-10.5) 02/20/24 02:22 Vitals Last Vital Signs Temp 98.0 F 02/20/24 07:46 Pulse 62 02/20/24 07:46 Resp 25 H 02/20/24 07:46 BP 149/83 02/20/24 07:46 Pulse Ox 93 02/20/24 07:46 O2 Del Method Room Air 02/20/24 07:46 Discharge Plan Discharge Patient Disposition: Home Prescriptions: New clopidogrel 75 mg tablet 75 mg PO DAILY Qty: 90 3RF Continued alendronate 70 mg tablet See Rx Instructions .ROUTE .COMPLEX Qty: 12 0RF Dose Instruction: TAKE 1 TABLET BY MOUTH ONCE WEEKLY Rx Instructions: TAKE 1 TABLET BY MOUTH ONCE WEEKLY ON MONDAY. levothyroxine 50 mcg tablet See Rx Instructions .ROUTE .COMPLEX Qty: 90 0RF Dose Instruction: TAKE 1 TABLET BY MOUTH EVERY DAY Rx Instructions: TAKE 1 TABLET BY MOUTH EVERY DAY atorvastatin 40 mg Tablet 40 mg PO BEDTIME Qty: 90 3RF aspirin 81 mg Tablet,Delayed Release (Dr/Ec) 81 mg PO DAILY Qty: 90 3RF nitroglycerin 0.4 mg Tablet, Sublingual 0.4 mg sublingual Q5M PRN (Reason: Chest Pain) Qty: 30 0RF furosemide 20 mg Tablet 20 mg PO DAILY Qty: 90 3RF metoprolol tartrate 25 mg Tablet 25 mg PO BID@0900,2100 Qty: 120 3RF amiodarone 200 mg tablet 200 mg PO DAILY Qty: 60 2RF Discontinued clopidogrel 75 mg Tablet 75 mg PO DAILY Qty: 90 3RF No Action lisinopril 10 mg tablet 5 mg PO DAILY Qty: 90 3RF Discharge Orders: Discharge Order (Routine); Ordered 02/20/24 Ordered By: Juan Butts Referrals: Wendy Johnston FNP [Primary Care Provider] - 02/26/24 2:20 pm Osiris Yanes FNP [Nurse Practitioner] - 02/27/24 3:00 pm Diet: Cardiac Activity: Increase activity as tolerated Patient Instructions: Clopidogrel (By mouth), Coronary Angioplasty (DC), Post Angiogram Home Care Instructions Discharge Date/Time: 02/20/24 10:14 Discharge Attestations Time Spent in Discharge Care*: less than 30 min Quality Metrics Clinical Quality Measures [ No reported AMI, CVA or VTE this stay] Coding Level of Care Code Acute Code for Chg Seth
--- NOTE | 2024-02-20 08:35 | PC.NURSE ---
Received verbal order from Dr Butts to give plavix 300mg PO once this morning.
[2024-02-20] MEDS: clopidogrel 300 mg Tablet PO (08:51)
[2024-02-20] MEDS: amiodarone 200 mg Tablet PO (08:51)
[2024-02-20] MEDS: aspirin 81 mg EC Tablet PO (08:51)
[2024-02-20] MEDS: lisinopril 5 mg Tablet PO (08:51)
[2024-02-20] MEDS: metoprolol tartrate 25 mg Tablet PO (08:53)
[2024-02-20 09:53] VITALS: BP 137/84; PULSE 68; RESP 17; TEMP 36.6; O2SAT 94
== END 2024-02-20 10:14 | disposition home or self-care (01) ==
LOC: CCL 05:53 → CSU 09:33
PROVIDERS: PCP Nurse Practitioner Family; Visit Provider Internal Medicine
DX: I25.5 Ischemic cardiomyopathy (principal); I25.10 Atherosclerotic heart disease of native coronary artery without angina pectoris; E78.5 Hyperlipidemia, unspecified; Z79.82 Long term (current) use of aspirin; I11.0 Hypertensive heart disease with heart failure; I50.9 Heart failure, unspecified; I27.20 Pulmonary hypertension, unspecified; Z79.02 Long term (current) use of antithrombotics/antiplatelets; I25.2 Old myocardial infarction
CPT/HCPCS: 36415; 80048; 85025; 85347; 96374; 96375; 96376; 99152; 99153; C1725; C1769; C1874; C1887; C1894; C9600; J1644; J2250; J2371; J3010; J3490; J7030; J7050; Q0163; Q9967

== ENCOUNTER → 2024-02-27 14:53 | Outpatient (BNVA) | payer MEDICARE, MEDICAID, SELFPAY | PROVIDERS: PCP Nurse Practitioner Family; Visit Provider Nurse Practitioner Family | DX: I50.9 Heart failure, unspecified (principal) | CPT/HCPCS: 36415; 80048; 83880; 99214 ==

== ENCOUNTER → 2024-04-11 10:59 | Outpatient (BNVA) | payer MEDICARE, MEDICAID, SELFPAY | PROVIDERS: PCP Nurse Practitioner Family; Visit Provider Nurse Practitioner Family | DX: I10 Essential (primary) hypertension (principal); D64.9 Anemia, unspecified; N39.0 Urinary tract infection, site not specified; R29.6 Repeated falls | CPT/HCPCS: 80053; 81000; 84443; 85025; 87086 ==

== ENCOUNTER 2024-04-15 16:20 | Observation (INO) | payer MEDICARE, MEDICAID, SELFPAY ==
--- NOTE | 2024-04-15 16:27 | ECG_ITS ---
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 Measurements Intervals [place] Rate: 62 P: 50 ID: [id number] QRS: -57 QRSD: 106 T: 79 QT: 463 QTc: 474 Interpretive Statements SINUS RHYTHM PATTERN CONSISTENT WITH PULMONARY DISEASE LEFT ANTERIOR FASCICULAR BLOCK [QRS AXIS <= -45, QR IN I, RS IN II] MINIMAL VOLTAGE CRITERIA FOR LVH, CONSIDER NORMAL VARIANT [MEETS CRITERIA IN ONE OF: R(aVL), S(V1), R(V5), R(V5/V6)+S(V1)] SEPTAL MYOCARDIAL INFARCTION , OF INDETERMINATE AGE [40+ ms Q WAVE IN V1/V2] Compared to ECG 01/28/2024 17:31:00 Atrial fibrillation no longer present Myocardial infarct finding still present Electronically Signed On 04-15-2024 19:26:04 TRAFFIC SIGNAL REPAIRER by Agnes Gibbs M.D. [email or web address]
--- NOTE | 2024-04-15 16:27 | XRR_ITS ---
PROCEDURE INFORMATION: Exam: XR Chest Exam date and time: 04/15/2024 4:30 PM Age: 83 years old Clinical indication: Other: Weakness; Patient HX: PT has a life vest on TECHNIQUE: Imaging protocol: Radiologic exam of the chest. Views: 1 view. COMPARISON: CR XR chest 1V portable [id number] 01/31/2024 8:14 AM FINDINGS: Lungs: Platelike atelectasis involves both lower lung villegas. No lung mass or infiltrate noted. Pleural spaces: Unremarkable. No pleural effusion. No pneumothorax. Heart/Mediastinum: Unremarkable. No cardiomegaly. Bones/joints: Unremarkable. XR/XR chest 1V portable [id number] IMPRESSION: No acute findings.
[2024-04-15 16:29] VITALS: BP 204/93; PULSE 65; RESP 18; O2SAT 91
--- NOTE | 2024-04-15 16:31 | W.ED.WEAKNES ---
HPI - Weakness General: Chief complaint: Weakness Stated complaint: generalized weakness Time Seen by Provider: 04/15/24 16:20 History of Present Illness: 83-year-old female with a history of coronary artery disease with recent ID and stent placement, atrial fibrillation, hypertension and hypothyroidism who presents the emergency room with generalized weakness. She says she has had some mild congestion in the mornings. She does have a LifeVest on. Blood pressure is elevated on presentation. She does not report chest pain. No orthopnea. No abdominal pain. No nausea or vomiting. Mainly just generalized weakness. Review of Systems Narrative: Constitutional symptoms: Negative except as documented in HPI. Skin symptoms: Negative except as documented in HPI. Eye symptoms: Negative except as documented in HPI. ENMT symptoms: Negative except as documented in HPI. Respiratory symptoms: Negative except as documented in HPI. Cardiovascular symptoms: Negative except as documented in HPI. Gastrointestinal symptoms: Negative except as documented in HPI. Genitourinary symptoms: Negative except as documented in HPI. Musculoskeletal symptoms: Negative except as documented in HPI. Neurologic symptoms: Negative except as documented in HPI. Psychiatric symptoms: Negative except as documented in HPI. Endocrine symptoms: Negative except as documented in HPI. [facility] PFSH: Medical History Atrial fibrillation Myocardial infarction Non-ST elevation ID (NSTEMI) Hyperlipidemia Osteoporosis HTN (hypertension) Hypothyroidism Surgical History History of left heart catheterization Family History Father Hypertension Social History Smoking and tobacco/nicotine status: never used tobacco/nicotine Lives independently: Yes Housing: House Marital status: / Physical Exam Narrative: EXAM NARRATIVE: General: Alert, no acute distress. Skin: Warm, dry. Head: Normocephalic, atraumatic. Neck: Supple, trachea midline. Eye: Extraocular movements are intact. Ears, nose, mouth and throat: mucosa moist. Cardiovascular: Regular, Normal peripheral perfusion. Respiratory: Lungs are clear to auscultation, respirations are non-labored, breath sounds are equal, Symmetrical chest wall expansion. Gastrointestinal: Soft, Nontender, Non distended Musculoskeletal: Normal ROM, no deformity. Neurological: Alert and oriented, No focal neurological deficit observed. Psychiatric: Cooperative, appropriate mood & affect. Course Vital Signs: Vital signs: Vital Signs Pulse Rate 67 04/15/24 20:00 Respiratory Rate 18 04/15/24 20:00 Blood Pressure 165/73 04/15/24 20:00 Pulse Oximetry 92 04/15/24 20:00 Oxygen Delivery Me thod Room Air 04/15/24 20:00 MDM - Weakness Medical Decision Making Medical decision making: Differential diagnosis for patient presenting with generalized weakness including but not limited to and based on the above HPI, review of systems and physical exam: Sepsis. Dehydration. Renal failure. Electrolyte abnormalities. Anemia. Congestive heart failure. Hypotension. Coronary syndrome. Hepatitis. Cirrhosis. Infections such as pneumonia, urinary tract infection, [place] illness, Cellulitis, Viral infections including influenza and Covid-19. Workup: labwork and lab/exam driven imaging ordered to evaluate, rule in and rule out above pathologies. EKG: Time 1651. Rate 62. Nonspecific ST changes. Normal sinus rhythm, no ectopy, normal MN & QRS intervals, This was reviewed and interpreted by myself the ER physician at 1656 Repeat EKG: Time 1830. Rate 64. Normal sinus rhythm, No ST-T changes, no ectopy, normal MN & QRS intervals, This was reviewed and interpreted by myself the ER physician at 1835. No significant changes from EKG done previously today in the emergency room. Chest x-ray: LifeVest in place. Cardiomegaly. No acute process. No infiltrate. No pneumothorax. This was reviewed and interpreted by myself the emergency room physician. I also reviewed the radiology report. Lab Review: Laboratory results were reviewed and interpreted by myself the emergency room physician. Lab work is unremarkable. No leukocytosis. No anemia. No new renal failure. Her BUN and creatinine are stable. Her proBNP is lower than it usually is. No UTI. I reviewed the patient's medical record. Reexamination: Patient remained stable. No increased work of breathing. No altered mental status. No focal motor deficits. I spoke with family at length and they are not willing to take the patient home. They say at times during the day she cannot get up at all and they do not feel she is safe going home. Consultation: I spoke with Dr. Mccord who will observe the patient. Assessment and plan: Generalized weakness Hypertension -I discussed the patient with the hospitalist on-call who is admitting the patient. - Discussed findings and plan with patient. Answered any questions. - All laboratory values were reviewed and interpreted personally by myself, the ER physician - All imaging was reviewed and interpreted personally by myself, the ER physician. - Evaluation and treatment of this problem were appropriate in the emergency setting Lab Data 04/15/24 16:39 04/15/24 16:39 Radiology Impressions Chest X-Ray 04/15/24 16:27 IMPRESSION: No acute findings. Laboratory Results WBC 9.79 10^3/uL (3.29-11.43) 04/15/24 16:39 RBC 4.45 10^6/uL (3.85-5.65) 04/15/24 16:39 Hgb 13.80 g/dL (11.27-16.99) 04/15/24 16:39 Hct 43.5 % (36-47) 04/15/24 16:39 MCV 97.8 fl (85-98) 04/15/24 16:39 MCH 31.0 pg (27-33) 04/15/24 16:39 MCHC 31.7 g/dL (30-55) 04/15/24 16:39 RDW 12.9 % (12.1-15.1) 04/15/24 16:39 Plt Count 244 10^3/cmm (157-399) 04/15/24 16:39 MPV 10.3 fL (7.4-10.4) 04/15/24 16:39 Neut % (Auto) 49.0 % 04/15/24 16:39 Lymph % (Auto) 31.6 % 04/15/24 16:39 [place] % (Auto) 12.3 % 04/15/24 16:39 Eos % (Auto) 5.9 % 04/15/24 16:39 Baso % (Auto) 0.9 % 04/15/24 16:39 Neut # (Auto) 4.80 10^3/uL (1.8-7.7) 04/15/24 16:39 Lymph # (Auto) 3.1 10^3/uL (0.8-4.8) 04/15/24 16:39 [place] # (Auto) 1.2 10^3/uL (0.2-0.9) H 04/15/24 16:39 Eos # (Auto) 0.6 10^3/uL (0.0-0.8) 04/15/24 16:39 Baso # (Auto) 0.1 10^3/uL (0.0-0.1) 04/15/24 16:39 Nucleated RBC % (auto) 0 % 04/15/24 16:39 Nucleated RBCs # 0.0 /100WBC 04/15/24 16:39 Sodium 140 mmol/L (136-145) 04/15/24 16:39 Potassium 4.3 mmol/L (3.5-5.1) 04/15/24 16:39 Chloride 99 mmol/L (98-107) 04/15/24 16:39 Carbon Dioxide 30 mmol/L (22-29) H 04/15/24 16:39 Anion Gap 15.3 (5-19) 04/15/24 16:39 BUN 33 mg/dL (8-23) H 04/15/24 16:39 Creatinine 1.4 mg/dL (0.5-0.9) H 04/15/24 16:39 GFR Calculation Not Reportable 04/15/24 16:39 Glucose 105 mg/dL (65-115) 04/15/24 16:39 Calculated Osmolality 298 mOsm/kg (285-295) H 04/15/24 16:39 Lactic Acid 0.9 mmol/L (0.5-2.2) 04/15/24 16:39 Calcium 10.2 mg/dL (8.5-10.5) 04/15/24 16:39 Total Bilirubin 0.2 mg/dL (0.15-1.2) 04/15/24 16:39 AST 28 U/L (0-32) 04/15/24 16:39 ALT 20 U/L (0-33) 04/15/24 16:39 Alkaline Phosphatase 106 U/L (35-105) H 04/15/24 16:39 Troponin T Baseline 38 ng/L (0-10) H 04/15/24 16:39 Troponin T 120 Minute 38.11 ng/L (0-10) H 04/15/24 18:17 Delta Troponin T 0.11 ABS# (0-10) 04/15/24 18:17 NT-Pro-B Natriuret Pep 2224 pg/mL (0-450) H 04/15/24 16:39 Total Protein 7.8 g/dL (6.6-8.7) 04/15/24 16:39 Albumin 4.4 g/dL (3.5-5.2) 04/15/24 16:39 Globulin 3.4 g/dL (1.3-4.6) 04/15/24 16:39 Urine Color Yellow (Yellow) 04/15/24 17:25 Urine Appearance Clear (CLEAR) 04/15/24 17:25 Urine pH 6.0 (5-7) 04/15/24 17:25 Ur Specific [place] 1.006 (1.005-1.030) 04/15/24 17:25 Urine Protein Negative (Negative) 04/15/24 17:25 Urine Glucose (UA) Negative (Normal) 04/15/24 17:25 Urine Ketones Negative (Negative) 04/15/24 17:25 Urine Blood Negative (Negative) 04/15/24 17:25 Urine Nitrate Negative (Negative) 04/15/24 17:25 Urine Bilirubin Negative (Negative) 04/15/24 17:25 Urine Urobilinogen 0.2 mg/dL (Negative) 04/15/24 17:25 Ur Leukocyte Esterase Negative (Negative) 04/15/24 17:25 Urine RBC 0-2 /hpf (0-2) 04/15/24 17:25 Urine WBC 0-5 /hpf (0-5) 04/15/24 17:25 Ur Squamous Epith Cells 0-5 /hpf (0-5) 04/15/24 17:25 Amorphous Sediment Not Reportable 04/15/24 17:25 Urine Bacteria None seen /hpf (NONE) 04/15/24 17:25 Hyaline Casts 0-4 /lpf H 04/15/24 17:25 Coronavirus (PCR) Negative (Negative) 04/15/24 16:33 Influenza A (PCR) Negative (Negative) 04/15/24 16:33 Influenza Type B (PCR) Negative (Negative) 04/15/24 16:33 RSV (PCR) Negative (Negative) 04/15/24 16:33 All radiology interpretation(s) finalized by discharge Discharge Plan Discharge Patient Disposition: Placed in Observation Admit Provider: Asael Mccord Clinical Impression: Weakness, Congestive heart failure, Coronary artery disease HTN (hypertension) Qualifiers: Hypertension type: unspecified Qualified Code(s): I10 - Essential (primary) hypertension Discharge Diet: Usual diet Coding Level of Care Code ED Rotary Peel Oven Tender for Chg Fwd Related Data Previous Rx's Medication Instructions Recorded amiodarone 200 mg tablet 200 mg PO DAILY #60 tabs 02/02/24 aspirin 81 mg tablet,delayed 81 mg PO DAILY #90 tabs 02/02/24 release atorvastatin 40 mg tablet 40 mg PO BEDTIME #90 tabs 02/02/24 furosemide 20 mg tablet 20 mg PO DAILY #90 tabs 02/02/24 nitroglycerin 0.4 mg sublingual 0.4 mg sublingual Q5M PRN Chest 02/02/24 tablet Pain #30 tabs clopidogrel 75 mg tablet 75 mg PO DAILY #90 tabs 02/20/24 alendronate 70 mg tablet See Rx Instructions .Route 03/27/24 .COMPLEX #12 tabs lisinopril 10 mg tablet 10 mg PO DAILY #90 tabs 03/27/24 metoprolol tartrate 25 mg tablet See Rx Instructions .Route 03/27/24 .COMPLEX #180 tabs cephalexin 500 mg capsule 500 mg PO Q8H 7 days #21 caps 04/11/24 levothyroxine 75 mcg capsule 75 mcg PO DAILY #90 caps 04/12/24 Allergies Allergy/AdvReac Type Severity Reaction Status Date / Time No Known Allergies Allergy Verified 04/15/24 16:35
[2024-04-15 16:53] LABS: Basophils # 0.1 10^3/uL (0.0-0.1); Basophils % 0.9 %; Eosinophils # 0.6 10^3/uL (0.0-0.8); Eosinophils % 5.9 %; Hematocrit 43.5 % (36-47); Lymphocytes # 3.1 10^3/uL (0.8-4.8); Lymphocytes % 31.6 %; Mean Corpuscular HGB Conc 31.7 g/dL (30-55); Mean Corpuscular Volume 97.8 fl (85-98); Mean Platelet Volume 10.3 fL (7.4-10.4); Monocytes # 1.2 10^3/uL (0.2-0.9); Monocytes % 12.3 %; Nucleated Red Blood Cells % 0 %; Platelet Count 244 10^3/cmm (157-399); Red Blood Count 4.45 10^6/uL (3.85-5.65); Red Cell Distribution Width 12.9 % (12.1-15.1); White Blood Count 9.79 10^3/uL (3.29-11.43)
[2024-04-15 17:15] LABS: Lactic Sepsis W/Reflex 0.9 mmol/L (0.5-2.2)
[2024-04-15 17:17] LABS: Troponin(5th) Baseline 38 ng/L (0-10)
[2024-04-15 17:25] LABS: Alanine Aminotransferase 20 U/L (0-33); Albumin Level 4.4 g/dL (3.5-5.2); Alkaline Phosphatase 106 U/L (35-105); Anion Gap 15.3 (5-19); Aspartate Amino Transferase 28 U/L (0-32); Blood Urea Nitrogen 33 mg/dL (8-23); Calcium 10.2 mg/dL (8.5-10.5); Carbon Dioxide 30 mmol/L (22-29); Chloride 99 mmol/L (98-107); Creatinine Clr Calc Pharmacy 27.2039; Globulin 3.4 g/dL (1.3-4.6); Glucose 105 mg/dL (65-115); NT Pro B Type Natriuretic Pept 2224 pg/mL (0-450); Osmolality Calculated 298 mOsm/kg (285-295); Potassium 4.3 mmol/L (3.5-5.1); Sodium 140 mmol/L (136-145); Total Bilirubin 0.2 mg/dL (0.15-1.2); Total Protein 7.8 g/dL (6.6-8.7)
[2024-04-15 17:33] LABS: Covid PCR NEGATIVE (Negative); Influenza A NEGATIVE (Negative); Influenza B NEGATIVE (Negative); Respiratory Syncytial Virus Ce NEGATIVE (Negative)
[2024-04-15 17:59] LABS: Bilirubin Urine Negative (Negative); Blood Urine Negative (Negative); Glucose Urine UA Negative (Normal); Ketones Urine Negative (Negative); Leukocyte Esterase Urine Negative (Negative); Nitrate Urine Negative (Negative); Protein Urine Negative (Negative); Specific Gravity, Urine 1.006 (1.005-1.030); Urine Appearance Clear (CLEAR); Urine Color Yellow (Yellow); Urobilinogen Urine 0.2 mg/dL (Negative)
[2024-04-15 18:02] LABS: Bacteria Urine None Seen /hpf; Hyaline Casts Urine 0-4 /lpf; RBC Urine 0-2 /hpf (0-2); Squamous Epithelial Cell Urine 0-5 /hpf (0-5); WBC Urine 0-5 /hpf (0-5)
--- NOTE | 2024-04-15 18:27 | ECG_ITS ---
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 Measurements Intervals [place] Rate: 64 P: 57 CO: 206 QRS: -61 QRSD: 104 T: 91 QT: 449 QTc: 465 Interpretive Statements SINUS RHYTHM PATTERN CONSISTENT WITH PULMONARY DISEASE LEFT ANTERIOR FASCICULAR BLOCK [QRS AXIS <= -45, QR IN I, RS IN II] SEPTAL MYOCARDIAL INFARCTION , OF INDETERMINATE AGE [40+ ms Q WAVE IN V1/V2] Compared to ECG 04/15/2024 16:51:54 No significant changes Electronically Signed On 04-15-2024 19:36:24 PLANER OFF BEARER by Agnes Gibbs M.D. [id number]
[2024-04-15 18:39] LABS: Troponin 5 2HR 38.11 ng/L (0-10); Troponin 5 2HR Delta 0.11 ABS# (0-10)
[2024-04-15 19:54] VITALS: BP 175/89; PULSE 62; RESP 18; O2SAT 93
--- NOTE | 2024-04-15 20:33 | P.HP_ITS ---
Providers/Chief Complaint 2 Primary Care Provider: JUDY Boss Chief Complaint: generalized weakness History of Present Illness Yazmin Joiner is a 83 year old female with a past medical history significant for coronary artery disease, congestive heart failure with reduced ejection fraction, paroxysmal atrial fibrillation, hypothyroidism and multiple other comorbidities who presents to the emergency department with generalized weakness and fatigue. Patient reports onset about 1 week ago. She describes her symptoms as progressively worsening with waxing and waning throughout the day. She endorses associated labile blood pressures. She was recently seen by her primary care physician and treated for UTI, lisinopril dosing was discussed, and thyroid function was abnormal with dose adjustment. She reports despite these changes, she continues to remain extremely weak and debilitated. In the emergency department, vital signs were significant for elevated blood pressure. Labs revealed some mild azotemia. NT proBNP was 2224, previously 10,403. Urinalysis was largely unremarkable. COVID, rapid flu, and RSV were negative. Chest x-ray was negative for acute findings. Review of Systems 2 Narrative: A complete review of systems was obtained and is negative except as stated in HPI. Medications/Allergies Home Medications Medication Instructions Recorded Confirmed Last Taken Type amiodarone 200 mg tablet 200 mg PO DAILY #60 tabs 02/02/24 04/15/24 04/15/24 Rx aspirin 81 mg tablet,delayed 81 mg PO DAILY #90 tabs 02/02/24 04/15/24 04/15/24 Rx release atorvastatin 40 mg tablet 40 mg PO BEDTIME #90 tabs 02/02/24 04/15/24 04/14/24 Rx furosemide 20 mg tablet 20 mg PO DAILY #90 tabs 02/02/24 04/15/24 04/15/24 Rx nitroglycerin 0.4 mg sublingual 0.4 mg sublingual Q5M PRN Chest 02/02/24 04/15/24 Unknown Rx tablet Pain #30 tabs clopidogrel 75 mg tablet 75 mg PO DAILY #90 tabs 02/20/24 04/15/24 04/15/24 Rx alendronate 70 mg tablet See Rx Instructions .Route 03/27/24 04/15/24 04/13/24 Rx .COMPLEX #12 tabs lisinopril 10 mg tablet 10 mg PO DAILY #90 tabs 03/27/24 04/15/24 04/15/24 Rx metoprolol tartrate 25 mg tablet See Rx Instructions .Route 03/27/24 04/15/24 04/14/24 Rx .COMPLEX #180 tabs cephalexin 500 mg capsule 500 mg PO Q8H 7 days #21 caps 04/11/24 04/15/24 04/15/24 Rx 0700 levothyroxine 75 mcg capsule 75 mcg PO DAILY #90 caps 04/12/24 04/15/24 04/15/24 Rx Allergies Allergy/AdvReac Type Severity Reaction Status Date / Time No Known Allergies Allergy Verified 04/15/24 16:35 PFSH Acute 2 PFSH: Medical History (Updated 04/15/24 @ 22:03 by Asael Mccord MD) Atrial fibrillation Myocardial infarction Non-ST elevation [place] (NSTEMI) Hyperlipidemia Osteoporosis HTN (hypertension) Hypothyroidism Surgical History History of left heart catheterization Family History Father Hypertension Social History Smoking and tobacco/nicotine status: never used tobacco/nicotine Lives independently: Yes Housing: House Marital status: / Vitals/I&O/Wt Last Vital Signs Pulse 67 04/15/24 20:00 Resp 18 04/15/24 20:00 BP 165/73 04/15/24 20:00 Pulse Ox 92 04/15/24 20:00 O2 Del Method Room Air 04/15/24 20:00 Weight last 48 hrs Weight 68.039 kg Physical Exam 2 Narrative: General: Patient is awake and alert. Head: Normocephalic. Atraumatic. EOM intact. Neck: No JVD. Cardiovascular: RRR. No gallops. No murmurs. Lungs: Clear to auscultation, no use of accessory muscles, no crackles or wheezes. Skin: No jaundice. No rashes. Abdomen: Normal bowel sounds, abdomen soft and nontender. Genito Urinary: Genital exam not performed since complaints not related. Rectal: Rectal exam not performed since no symptoms indicated blood loss. Extremities: No cyanosis or clubbing. Musculoskeletal: No swollen or erythematous joints. Neurological: Moves all 4 extremities. No myoclonus. Data 04/15/24 16:39 04/15/24 16:39 Micro: Microbiology 04/15/24 16:43 Blood Culture - Preliminary Blood SPECIMEN COLLECTED 04/15/24 16:39 Blood Culture - Preliminary Blood SPECIMEN COLLECTED A&P Assessment and plan (1) Failure to thrive: Failure to thrive in adult Consult PT and OT Check TFTs, B12 Urinalysis unremarkable CXR unremarkable (2) HTN (hypertension): Blood pressure is uncontrolled Continue metoprolol Continue lisinopril increased to 20 mg daily Will likely need second agent IV hydralazine as needed for significantly elevated blood pressures Monitor BP Qualifiers: Hypertension type: unspecified Qualified Code(s): I10 - Essential (primary) hypertension (3) Hypothyroidism: Recent TSH abnormal which could be contributing to her underlying FTT Recent dose change noted She will need repeat TFTs in 4 to 6 weeks Continue Synthroid at recent dose change Qualifiers: 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 Qualified Code(s): E03.4 - Atrophy of thyroid (acquired) (4) CHF (congestive heart failure): Chronic heart failure with reduced ejection without exacerbation Continue home Lasix Continue home beta abel Continue home NAE inhibitor Telemetry monitoring (5) Coronary artery disease: PCI to OM in 01/[address] Butts Continue DAPT w/ ASA and Plavix Continue high intensity statin Continue beta abel (6) Atrial fibrillation: Continue home amiodarone Not on anticoagulation prior to admission (7) Ischemic cardiomyopathy: Patient wearing LifeVest due to low EF She reports repeat echo scheduled the end of the month Telemetry monitoring Plan DVT ppx: Heparin Attestations 2 Medical Necessity Statement*: Patient presents with diffuse weakness and generalized malaise, found to have failure to thrive with concerns that patient is too weak to go home from the ED for which she will be admitted observation overnight for further monitoring, therapy evaluation, telemetry and blood pressure control. 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
[2024-04-15 21:24] LABS: Thyroid Stimulating Hormone 11.83 uIU/mL (0.27-4.20); Vitamin B12 336 pg/mL (232-1245)
[2024-04-15 21:33] VITALS: BP 178/73; PULSE 66; RESP 18; TEMP 36.7; O2SAT 95
[2024-04-15 21:36] VITALS: BMI 28.5
[2024-04-15 21:49] VITALS: BP 171/73; PULSE 67; O2SAT 92
[2024-04-15] MEDS: heparin 5,000 unit/mL INJ 1 mL 5000 UNIT SUBCUT (21:49)
[2024-04-15 22:01] VITALS: PULSE 65
--- NOTE | 2024-04-15 22:27 | ECG_ITS ---
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1940 Requested By: Briana Hanson Order Number: [id number] Maximilian MD: MAGDALENA DUVALL Measurements Intervals [place] Rate: 61 P: 42 [place]: 202 QRS: -56 QRSD: 114 T: 88 QT: 455 QTc: 460 Interpretive Statements SINUS RHYTHM INCOMPLETE RIGHT BUNDLE BRANCH BLOCK [90+ ms QRS DURATION, TERMINAL R IN V1/V2, 40+ ms S IN I/aVL/V4/V5/V6] LEFT ANTERIOR FASCICULAR BLOCK [QRS AXIS <= -45, QR IN I, RS IN II] LEFT VENTRICULAR HYPERTROPHY AND ST-T CHANGE [VOLTAGE CRITERIA PLUS ST/T ABNORMALITY] POSSIBLE SEPTAL MYOCARDIAL INFARCTION , OF INDETERMINATE AGE [30 ms Q WAVE IN V1/V2] Compared to ECG 04/15/2024 18:30:34 Incomplete right bundle-branch block now present Electronically Signed On 04-17-2024 18:16:22 ORDER PLANNER by MAGDALENA DUVALL [id number]
[2024-04-15 22:51] LABS: Troponin 5 6HR 47.76 ng/L (0-10); Troponin 5 6HR Delta 9.76 ng/L (0-12)
[2024-04-16] VITALS (9 sets, daily range): BP systolic 114–194; BP diastolic 64–104; PULSE 55–75; RESP 16–17; TEMP 36.6–37; O2SAT 92–96
[2024-04-16 04:07] LABS: Basophils # 0.1 10^3/uL (0.0-0.1); Eosinophils # 0.5 10^3/uL (0.0-0.8); Eosinophils % 6.4 %; Hematocrit 39.3 % (36-47); Lymphocytes # 2.3 10^3/uL (0.8-4.8); Lymphocytes % 29.4 %; Mean Corpuscular HGB Conc 32.6 g/dL (30-55); Mean Corpuscular Hemoglobin 31.4 pg (27-33); Mean Corpuscular Volume 96.3 fl (85-98); Mean Platelet Volume 9.8 fL (7.4-10.4); Monocytes # 0.9 10^3/uL (0.2-0.9); Monocytes % 11.2 %; Neutrophils % 51.7 %; Nucleated Red Blood Cells % 0 %; Platelet Count 183 10^3/cmm (157-399); Red Blood Count 4.08 10^6/uL (3.85-5.65); Red Cell Distribution Width 12.9 % (12.1-15.1); White Blood Count 7.93 10^3/uL (3.29-11.43)
[2024-04-16 04:28] LABS: Blood Urea Nitrogen 29 mg/dL (8-23); Calcium 8.6 mg/dL (8.5-10.5); Carbon Dioxide 30 mmol/L (22-29); Chloride 104 mmol/L (98-107); Creatinine Clr Calc Pharmacy 32.8668; Glucose 105 mg/dL (65-115); Osmolality Calculated 298 mOsm/kg (285-295); Sodium 141 mmol/L (136-145)
[2024-04-16] MEDS: amiodarone 200 mg Tablet PO (08:01)
[2024-04-16] MEDS: lisinopril 10 mg Tablet 20 MG PO (08:01)
[2024-04-16] MEDS: clopidogrel 75 mg Tablet PO (08:01)
[2024-04-16] MEDS: levothyroxine 75 mcg Tablet PO (08:01)
[2024-04-16] MEDS: aspirin 81 mg EC Tablet PO (08:01)
[2024-04-16] MEDS: FUROsemide 20 mg Tablet PO (08:01)
--- NOTE | 2024-04-16 09:56 | PC.CHAP ---
Pastoral Care Encounter/Spiritual Assessment Type of Contact [] Declined medical administrator visit [] Patient/Family/Request visit [] Outpatient visit [] Follow-up visit [] Physician referral [] Code/Alert [x] Routine visit [] Staff referral [] Actively dying [] Patient sleeping [x] Family support [] [] Out of room [] Palliative care [] [] Receiving care in room [] Pre-surgical visit [] Trauma [] Long length of stay [] ICU visit [] Other: Relational/Emotional Strength [x] Patient feels connected with others/family/visitors/staff [] Distress [] Loneliness/isolation [] Abandonment Spirituality of Patient [x] Person of Laura [] Attends Scientology of their Laura [x] Believes in Prayer [] Reads Bible or Yazidi materials [] There are Spiritual issues to be addressed Home Decorator Interventions [x] Prayer [x] Active listening [] Non-anxious presence [x] Spiritual/emotional support [] Crisis/trauma care [] Spiritual counseling [] Bereavement support [] Provided bereavement packet [] Provided Bible/devotional materials [] Provided toy/stuffed animal, coloring book to patient or family member [] Provided Communion [] Anointing/[place] [] Salvation [x] Completed spiritual assessment [] Other: Impact on Illness or Injury [] Angry [] Fearful [] Anxious [] Often cries [] Exhaustion [] Unable to work [] Unable to attend zoroastrian [] Unable to walk/stand [] Unable to read [] Unable to drive [] Unable to eat/drink [] Unable to sleep [] Unable to be with family [] Patient intubated [] Other: Summary Time spent with patient 5 min
--- NOTE | 2024-04-16 10:26 | USCV_ITS ---
Yazmin Joiner Age: 83 Gender: F : 1940 Exam Date: 04/16/2024 11:06 Ordering Phys: Saji Zuniga MD Technologist: CT [place]am [place] [facility] [place]ication: sob/cp BP: 130 / 82 HR: 72 Rhythm: Sinus Technical Quality: Adequate MEASUREMENTS (Male / Female) Normal Values 2D ECHO LVOT Diameter 2.2 cm LV Ejection Fraction MOD 4C 65.4 % LV Ejection Fraction MOD 2C 76.3 % LV Ejection Fraction 2C AL 78.4 % LA Diameter 3.2 cm RA Systolic Volume 4C AL 27.1 ml RA Systolic Volume 4C MOD 26.2 ml LA Sys Volume AL 29.8 cm cubed LA Sys Volume Index AL 16.4 cm cubed/m squared Aorta at Sinotubular Diameter 2.6 cm M-MODE LA Ao Ratio MM 1.1 AV Cusp Separation MM 2.0 cm DOPPLER AV Peak Velocity 162.0 cm/s LVOT Peak Velocity 127.0 cm/s AV Area Cont Eq vti 3.0 cm squared AV Area Cont Eq pk 3.0 cm squared MV Peak Velocity 127.0 cm/s MV Area PHT 3.3 cm squared Mitral E to A Ratio 0.6 TV Peak Velocity 269.0 cm/s TR Peak Velocity 288.0 cm/s TR Peak Gradient 33.2 mmHg TV Peak E Velocity 72.0 cm/s Right Atrial Pressure 3.0 mmHg Pulmonary Artery Systolic Pressu 36.2 mmHg PV Peak Velocity 99.5 cm/s FINDINGS Left Ventricle Normal left ventricular size and systolic function, EF 76%.mild left ventricular hypertrophy. Grade I/IV diastolic dysfunction (abnormal relaxation filling pattern), normal to mildly elevated filling pressures. Right Ventricle The right ventricle is normal in size and function. Right Atrium The right atrium is normal in size. Left Atrium The left atrium is normal in size. Mitral Valve Moderate mitral annular calcification. Trace to mild mitral valve regurgitation. Aortic Valve Trace aortic valve regurgitation. Thickened aortic valve. Tricuspid Valve Trace tricuspid valve regurgitation. Estimated pulmonary artery peak systolic pressure 36 mmHg Pulmonic Valve Pulmonic valve not well visualized. Pericardium Normal pericardium without effusion. Aorta Normal ascending aorta dimension. IVC Inferior vena cava not visualized. CONCLUSIONS Normal left ventricular size and systolic function, EF 76%.mild left ventricular hypertrophy. Grade I/IV diastolic dysfunction (abnormal relaxation filling pattern), normal to mildly elevated filling pressures. Moderate mitral annular calcification. Trace to mild mitral valve regurgitation. Trace aortic valve regurgitation. Thickened aortic valve. Trace tricuspid valve regurgitation. Estimated pulmonary artery peak systolic pressure 36 mmHg. There is no pericardial effusion. There are no intracardiac masses. Compared to the study from 11/18/2022, there may not be a significant change Dr Agnes Gibbs MD [facility] (Electronically Signed) Final Date: 16 April 2024 19:45 S
[2024-04-16] MEDS: heparin 5,000 unit/mL INJ 1 mL 5000 UNIT SUBCUT ×2 (10:40→21:01)
--- NOTE | 2024-04-16 14:17 | P.PN_ITS ---
Subjective 2 Subjective: Patient was seen this morning, she tells me that she lives at home by herself, her family helps with activities of daily living, she is able to ambulate with a walker, no recent falls, she tells me that typically in the evening time typically that is when she starts feeling tired and fatigued, she denies any falls, but she tells me that both legs feel weak denies her knees giving out on her, denies any facial droop no slurring of words, no focal weakness, she thinks that it might be the metoprolol that she is taking that dylan causing her fatigue and tiredness Vitals/I&O/Wt Last Vital Signs Temp 97.8 F 04/16/24 11:36 Pulse 74 04/16/24 11:36 Resp 17 04/16/24 11:36 BP 136/85 04/16/24 11:36 Pulse Ox 95 04/16/24 11:36 O2 Del Method Room Air 04/16/24 11:36 04/15/24 04/16/24 04/16/24 22:59 06:59 14:59 Intake Total 120 / 120 240 / 360 358 / 358 Balance 120 / 120 240 / 360 358 / 358 Weight last 48 hrs Weight 73.255 kg Weight 73.028 kg Weight 68.039 kg Physical Exam 2 Const: COMMON NORMALS: no acute distress and patient oriented x3 Resp: COMMON NORMALS: normal respiratory effort, No retractions, No use of accessory muscles and clear to auscultation bilaterally AUSCULTATION: clear to auscultation bilaterally Cardio: COMMON NORMALS: regular rate, regular rhythm, S1 normal heart sound present and S2 normal heart sound present RATE: regular rate RHYTHM: r egular rhythm HEART SOUNDS: S1 normal heart sound present and S2 normal heart sound present GI: COMMON NORMALS: Normal to inspection, nondistended, normoactive bowel sounds present and non-tender Extremity: COMMON NORMALS: no pedal edema Neuro: COMMON NORMALS: patient oriented x3 Psych: COMMON NORMALS: mental status grossly normal Data 04/16/24 03:55 04/16/24 03:55 Micro: Microbiology 04/15/24 16:43 Blood Culture - Preliminary Blood SPECIMEN COLLECTED 04/15/24 16:39 Blood Culture - Preliminary Blood SPECIMEN COLLECTED A&P Assessment and plan (1) Failure to thrive: Failure to thrive in adult Consult PT and OT Check TSH 11.83, Urinalysis unremarkable CXR unremarkable (2) HTN (hypertension): Blood pressure is uncontrolled Stop metoprolol Continue lisinopril increased to 20 mg daily Will likely need second agent IV hydralazine as needed for significantly elevated blood pressures Monitor BP Qualifiers: Hypertension type: unspecified Qualified Code(s): I10 - Essential (primary) hypertension (3) Hypothyroidism: Recent TSH abnormal which could be contributing to her underlying FTT Recent dose change noted She will need repeat TFTs in 4 to 6 weeks Continue Synthroid at recent dose change Qualifiers: 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 Qualified Code(s): E03.4 - Atrophy of thyroid (acquired) (4) CHF (congestive heart failure): Chronic heart failure with reduced ejection without exacerbation Continue home Lasix Continue home NAE inhibitor Telemetry monitoring (5) Coronary artery disease: PCI to [facility] in 01/[address] Butts Continue DAPT w/ ASA and Plavix Continue high intensity statin Continue beta abel (6) Atrial fibrillation: Continue home amiodarone Not on anticoagulation prior to admission (7) Ischemic cardiomyopathy: Patient wearing LifeVest due to low EF She reports repeat echo scheduled the end of the month Telemetry monitoring (8) Bilateral leg weakness: Plan DVT ppx: Heparin Plan for today, repeat echocardiogram, hold metoprolol Attestations 2 Medical Necessity Statement*: Patient requires hospitalization for weakness, outpatient with observation Diagnoses Failure to thrive Hypertension, unspecified type I10 Hypertension type: unspecified Hypothyroidism due to acquired atrophy of thyroid E03.4 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
--- NOTE | 2024-04-16 14:20 | CTR_ITS ---
PROCEDURE INFORMATION: Exam: CT Head Without Contrast Exam date and time: 04/16/2024 2:42 PM Age: 83 years old Clinical indication: Weakness, extremity; Bilateral TECHNIQUE: Imaging protocol: Computed tomography of the head without contrast. Radiation optimization: All CT scans at this facility use at least one of these dose optimization techniques: automated exposure control; mA and/or kV adjustment per patient size (includes targeted exams where dose is matched to clinical indication); or iterative reconstruction. COMPARISON: No relevant prior studies available. RADIATION DOSE METRICS: Total DLP (mGy-cm): 1027.97 FINDINGS: Brain: There are global involutional changes of the brain which are in keeping with the patient's age. Periventricular hypodensities are nonspecific but most likely reflect chronic microvascular ischemic disease. There is no acute intracranial hemorrhage or abnormal extra-axial fluid collection identified. There is no intracranial mass effect or shift of midline structures. The santos-white differentiation is preserved throughout. There is no sulcal effacement. The basilar cisterns are open. Cerebral ventricles: No hydrocephalus or ventricular effacement. Paranasal sinuses: The visualized sinuses are unremarkable. Mastoid air cells: There is no mastoid effusion detected. Bones: No calvarial fracture or destructive osseous lesions are seen. Soft tissues: Unremarkable. Vasculature: Atherosclerotic vascular disease is noted at the level of the skull base. CT/CT head wo con* [id number] IMPRESSION: No acute intracranial pathology identified by CT.
[2024-04-16] MEDS: atorvastatin 40 mg Tablet PO (21:01)
[2024-04-17] VITALS: BP 117/71; PULSE 80; RESP 16; TEMP 36.9; O2SAT 95
[2024-04-17 04:00] VITALS: BP 155/76; PULSE 73; RESP 17; TEMP 36.6; O2SAT 91
[2024-04-17 06:00] VITALS: PULSE 78
[2024-04-17 07:11] VITALS: BP 114/72; PULSE 76; RESP 16; TEMP 36.7; O2SAT 94
[2024-04-17] MEDS: lisinopril 10 mg Tablet 20 MG PO (07:54)
[2024-04-17] MEDS: clopidogrel 75 mg Tablet PO (07:54)
[2024-04-17] MEDS: heparin 5,000 unit/mL INJ 1 mL 5000 UNIT SUBCUT (07:54)
[2024-04-17] MEDS: aspirin 81 mg EC Tablet PO (07:54)
[2024-04-17] MEDS: amiodarone 200 mg Tablet PO (07:54)
[2024-04-17] MEDS: levothyroxine 75 mcg Tablet PO (07:54)
[2024-04-17] MEDS: FUROsemide 20 mg Tablet PO (07:54)
[2024-04-17 09:40] LABS: Free T4 Free Thyroxine 1.81 ng/dL (0.82-1.77); T3 Free 1.5 PG/ML (2.0-4.4)
[2024-04-17 11:06] VITALS: BP 129/75; PULSE 76; RESP 16; TEMP 36.7; O2SAT 91
--- NOTE | 2024-04-17 11:07 | P.DS_ITS ---
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 Qualified Code(s): E03.4 - Atrophy of thyroid (acquired) (4) CHF (congestive heart failure): Status: Acute (5) Coronary artery disease: Status: Acute (6) Atrial fibrillation: Status: Acute (7) Ischemic cardiomyopathy: Status: Acute (8) Bilateral leg weakness: Status: Acute Reason for Visit Reason for Visit: generalized weakness Hospital Course Hospital Course This is a 83-year-old female with a past medical history of CAD, heart failure with reduced ejection fraction, paroxysmal atrial fibrillation, hypothyroidism, who presents [facility] due to generalized weakness, fatigue Patient was admitted to [facility] for weakness, fatigue, concerning for polypharmacy possible beta-abel side effect. Her beta-abel was held, she tells me that her weakness her fatigue specially in the afternoon has significantly resolved she is relatively asymptomatic. She is ambulating without significant symptomatology, no chest pain, shortness of breath, no weakness, no fatigue, no headache, blurry vision, no focal weakness. 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 After discussing risk and benefits of metoprolol given her recent history of CAD, her history of atrial fibrillation patient family voiced understanding, all questions answered, for now they want to hold off on taking beta-abel. Head CT no acute stroke cardiac echo CONCLUSIONS Normal left ventricular size and systolic function, EF 76%.mild left ventricular hypertrophy. Grade I/IV diastolic dysfunction (abnormal relaxation filling pattern), normal to mildly elevated filling pressures. Moderate mitral annular calcification. Trace to mild mitral valve regurgitation. Trace aortic valve regurgitation. Thickened aortic valve. Trace tricuspid valve regurgitation. Estimated pulmonary artery peak systolic pressure 36 mmHg. There is no pericardial effusion. There are no intracardiac masses. Compared to the study from 11/18/2022, there may not be a significant change Physical Exam 2 Const: COMMON NORMALS: no acute distress and patient oriented x3 Resp: COMMON NORMALS: normal respiratory effort, No retractions, No use of accessory muscles and clear to auscultation bilaterally AUSCULTATION: clear to auscultation bilaterally Cardio: COMMON NORMALS: regular rate, regular rhythm, S1 normal heart sound present and S2 normal heart sound present RATE: regular rate RHYTHM: regular rhythm HEART SOUNDS: S1 normal heart sound present and S2 normal heart sound present GI: COMMON NORMALS: Normal to inspection, nondistended, normoactive bowel sounds present and non-tender Extremity: COMMON NORMALS: no pedal edema Neuro: COMMON NORMALS: patient oriented x3 Psych: COMMON NORMALS: mental status grossly normal Discharge Data Studies Completed and Pending Completed Studies During Hospitalization Category Date Time Status CT head wo con* [id number] Routine Cat Scan 04/16/24 14:20 Completed XR chest 1V portable [id number] Stat Exams 04/15/24 16:27 Completed CV. echo complete* [id number] Routine Ultrasound 04/16/24 10:26 Completed Pending at discharge Category Date Time Status Blood Culture Stat Lab 04/15/24 16:43 Results Radiology Impressions Chest X-Ray 04/15/24 16:27 IMPRESSION: No acute findings. Head CT 04/16/24 14:20 IMPRESSION: No acute intracranial pathology identified by CT. Laboratory Results WBC 7.93 10^3/uL (3.29-11.43) 04/16/24 03:55 RBC 4.08 10^6/uL (3.85-5.65) 04/16/24 03:55 Hgb 12.80 g/dL (11.27-16.99) 04/16/24 03:55 Hct 39.3 % (36-47) 04/16/24 03:55 MCV 96.3 fl (85-98) 04/16/24 03:55 MCH 31.4 pg (27-33) 04/16/24 03:55 MCHC 32.6 g/dL (30-55) 04/16/24 03:55 RDW 12.9 % (12.1-15.1) 04/16/24 03:55 Plt Count 183 10^3/cmm (157-399) 04/16/24 03:55 MPV 9.8 fL (7.4-10.4) 04/16/24 03:55 Neut % (Auto) 51.7 % 04/16/24 03:55 Lymph % (Auto) 29.4 % 04/16/24 03:55 [place] % (Auto) 11.2 % 04/16/24 03:55 Eos % (Auto) 6.4 % 04/16/24 03:55 Baso % (Auto) 1.0 % 04/16/24 03:55 Neut # (Auto) 4.10 10^3/uL (1.8-7.7) 04/16/24 03:55 Lymph # (Auto) 2.3 10^3/uL (0.8-4.8) 04/16/24 03:55 [place] # (Auto) 0.9 10^3/uL (0.2-0.9) 04/16/24 03:55 Eos # (Auto) 0.5 10^3/uL (0.0-0.8) 04/16/24 03:55 Baso # (Auto) 0.1 10^3/uL (0.0-0.1) 04/16/24 03:55 Nucleated RBC % (auto) 0 % 04/16/24 03:55 Nucleated RBCs # 0.0 /100WBC 04/16/24 03:55 Sodium Cancelled 04/17/24 03:55 Potassium Cancelled 04/17/24 03:55 Chloride Cancelled 04/17/24 03:55 Carbon Dioxide Cancelled 04/17/24 03:55 Anion Gap Cancelled 04/17/24 03:55 BUN Cancelled 04/17/24 03:55 Creatinine Cancelled 04/17/24 03:55 GFR Calculation Cancelled 04/17/24 03:55 Glucose Cancelled 04/17/24 03:55 Calculated Osmolality Cancelled 04/17/24 03:55 Lactic Acid 0.9 mmol/L (0.5-2.2) 04/15/24 16:39 Calcium Cancelled 04/17/24 03:55 Magnesium 2.0 mg/dL (1.7-2.3) 04/16/24 03:55 Total Bilirubin 0.2 mg/dL (0.15-1.2) 04/15/24 16:39 AST 28 U/L (0-32) 04/15/24 16:39 ALT 20 U/L (0-33) 04/15/24 16:39 Alkaline Phosphatase 106 U/L (35-105) H 04/15/24 16:39 Troponin T Baseline 38 ng/L (0-10) H 04/15/24 16:39 Troponin T 120 Minute 38.11 ng/L (0-10) H 04/15/24 18:17 Delta Troponin T 0.11 ABS# (0-10) 04/15/24 18:17 Troponin T Hi Sens 6Hr 47.76 ng/L (0-10) H 04/15/24 22:29 Troponin T Hi Sens 6Hr Delta 9.76 ng/L (0-12) 04/15/24 22:29 NT-Pro-B Natriuret Pep 2224 pg/mL (0-450) H 04/15/24 16:39 Total Protein 7.8 g/dL (6.6-8.7) 04/15/24 16:39 Albumin 4.4 g/dL (3.5-5.2) 04/15/24 16:39 Globulin 3.4 g/dL (1.3-4.6) 04/15/24 16:39 Vitamin B12 336 pg/mL (232-1245) 04/15/24 16:39 TSH 11.83 uIU/mL (0.27-4.20) H 04/15/24 16:39 Free T4 1.81 ng/dL (0.82-1.77) H 04/17/24 03:55 Free T3 1.5 PG/ML (2.0-4.4) L 04/17/24 03:55 Urine Color Yellow (Yellow) 04/15/24 17:25 Urine Appearance Clear (CLEAR) 04/15/24 17:25 Urine pH 6.0 (5-7) 04/15/24 17:25 Ur Specific [place] 1.006 (1.005-1.030) 04/15/24 17:25 Urine Protein Negative (Negative) 04/15/24 17:25 Urine Glucose (UA) Negative (Normal) 04/15/24 17:25 Urine Ketones Negative (Negative) 04/15/24 17:25 Urine Blood Negative (Negative) 04/15/24 17: Urine Nitrate Negative (Negative) 04/15/24 17:25 Urine Bilirubin Negative (Negative) 04/15/24 17:25 Urine Urobilinogen 0.2 mg/dL (Negative) 04/15/24 17:25 Ur Leukocyte Esterase Negative (Negative) 04/15/24 17:25 Urine RBC 0-2 /hpf (0-2) 04/15/24 17:25 Urine WBC 0-5 /hpf (0-5) 04/15/24 17:25 Ur Squamous Epith Cells 0-5 /hpf (0-5) 04/15/24 17:25 Amorphous Sediment Not Reportable 04/15/24 17:25 Urine Bacteria None seen /hpf (NONE) 04/15/24 17:25 Hyaline Casts 0-4 /lpf H 04/15/24 17:25 Coronavirus (PCR) Negative (Negative) 04/15/24 16:33 Influenza A (PCR) Negative (Negative) 04/15/24 16:33 Influenza Type B (PCR) Negative (Negative) 04/15/24 16:33 RSV (PCR) Negative (Negative) 04/15/24 16:33 Vitals Last Vital Signs Temp 98.0 F 04/17/24 07:11 Pulse 76 04/17/24 07:11 Resp 16 04/17/24 07:11 BP 114/72 04/17/24 07:11 Pulse Ox 94 04/17/24 07:11 O2 Del Method Room Air 04/17/24 07:11 Discharge Plan Discharge Patient Disposition: Home Condition: Stable Prescriptions: Continued cephalexin 500 mg capsule 500 mg PO Q8H 7 Days Qty: 21 0RF alendronate 70 mg tablet See Rx Instructions .ROUTE .COMPLEX Qty: 12 0RF Dose Instruction: TAKE 1 TABLET BY MOUTH 1 TIME WEEKLY Rx Instructions: TAKE 1 TABLET BY MOUTH 1 TIME WEEKLY levothyroxine 75 mcg capsule 75 mcg PO DAILY Qty: 90 0RF clopidogrel 75 mg tablet 75 mg PO DAILY Qty: 90 3RF atorvastatin 40 mg Tablet 40 mg PO BEDTIME Qty: 90 3RF aspirin 81 mg Tablet,Delayed Release (Dr/Ec) 81 mg PO DAILY Qty: 90 3RF nitroglycerin 0.4 mg Tablet, Sublingual 0.4 mg sublingual Q5M PRN (Reason: Chest Pain) Qty: 30 0RF furosemide 20 mg Tablet 20 mg PO DAILY Qty: 90 3RF amiodarone 200 mg tablet 200 mg PO DAILY Qty: 60 2RF Changed lisinopril 10 mg tablet 20 mg PO DAILY Qty: 90 3RF Discontinued metoprolol tartrate 25 mg tablet See Rx Instructions .ROUTE .COMPLEX Qty: 180 3RF Dose Instruction: TAKE 1 TABLET TWICE DAILY AT 9AM& AT 9PM Rx Instructions: TAKE 1 TABLET TWICE DAILY AT 9AM& AT 9PM Discharge Orders: Discharge Order (Routine); Ordered 04/17/24 Ordered By: Saji Zuniga Referrals: Wendy Johnston FNP [Primary Care Provider] - (We have notified your physician's clinic of the need for a follow-up appointment to be scheduled. If you have not heard from them within the next 2 business days, please call them directly. ) Discharge Diet: Usual diet and Cardiac Discharge Activity: Resume usual activity Patient Instructions: Opioid Safety Activity Restrictions/Additional Instructions: - If you have chest pain or palpitations please go to the emergency room Discharge Attestations Time Spent in Discharge Care*: greater than 30 min Quality Metrics Clinical Quality Measures [ No reported AMI, CVA or VTE this stay] Coding Level of Care Code 11636 Total time (in minutes) for Discharge: 45 Diagnoses Failure to thrive Hypertension, unspecified type I10 Hypertension type: unspecified Hypothyroidism due to acquired atrophy of thyroid E03.4 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
[2024-04-17 11:56] VITALS: BP 129/75; PULSE 76; O2SAT 97
== END 2024-04-17 11:58 | disposition home or self-care (01) ==
LOC: ER 20:35 → MEDSURG 21:04
PROVIDERS: Admitting Provider Internal Medicine; Emergency Provider Emergency Medicine; PCP Nurse Practitioner Family; Visit Provider Family Medicine
DX: R62.7 Adult failure to thrive (principal); E03.4 Atrophy of thyroid (acquired); I11.0 Hypertensive heart disease with heart failure; I50.20 Unspecified systolic (congestive) heart failure; I25.10 Atherosclerotic heart disease of native coronary artery without angina pectoris; I25.5 Ischemic cardiomyopathy; R29.898 Other symptoms and signs involving the musculoskeletal system; I48.0 Paroxysmal atrial fibrillation; E03.9 Hypothyroidism, unspecified; Z79.82 Long term (current) use of aspirin; I25.2 Old myocardial infarction; E78.5 Hyperlipidemia, unspecified; Z95.5 Presence of coronary angioplasty implant and graft
CPT/HCPCS: 0241U; 36415; 70450; 71045; 80048; 80053; 81001; 82607; 83605; 83735; 83880; 84439; 84443; 84481; 84484; 85025; 87040; 93005; 93306; 96372; 97110; 97116; 97162; 97165; 99285; G0378; J1644

== ENCOUNTER → 2024-04-18 10:02 | Outpatient (BNVA) | payer MEDICARE, MEDICAID, SELFPAY | PROVIDERS: PCP Nurse Practitioner Family; Visit Provider Nurse Practitioner Family | DX: I25.5 Ischemic cardiomyopathy (principal); I25.10 Atherosclerotic heart disease of native coronary artery without angina pectoris; I11.0 Hypertensive heart disease with heart failure; I50.9 Heart failure, unspecified | CPT/HCPCS: 99214 ==

== ENCOUNTER → 2024-05-16 15:21 | Outpatient (BNVA) | payer MEDICARE, MEDICAID, SELFPAY | PROVIDERS: PCP Nurse Practitioner Family; Visit Provider Internal Medicine | DX: I25.10 Atherosclerotic heart disease of native coronary artery without angina pectoris (principal); I11.0 Hypertensive heart disease with heart failure; I50.9 Heart failure, unspecified; I48.91 Unspecified atrial fibrillation; E78.2 Mixed hyperlipidemia; I25.2 Old myocardial infarction | CPT/HCPCS: 99214 ==

== ENCOUNTER 2024-06-04 08:28 | Emergency (ER) | payer MEDICARE, MEDICAID, SELFPAY ==
[2024-06-04] VITALS (23 sets, daily range): BP systolic 183–203; BP diastolic 95–102; PULSE 71–81; RESP 14–24; TEMP 36.8; O2SAT 92–96; BMI 27.8
--- NOTE | 2024-06-04 08:43 | XRR_ITS ---
PROCEDURE INFORMATION: Exam: XR Chest Exam date and time: 06/04/2024 8:48 AM Age: 84 years old Clinical indication: Cough and dyspnea; Additional info: Dyspnea/cough TECHNIQUE: Imaging protocol: Radiologic exam of the chest. Views: 1 view. Total images: 1520 COMPARISON: CR XR chest 1V portable [id number] 04/15/2024 4:30 PM FINDINGS: Lungs: Trace atelectasis or scar noted in the right mid lung and bilateral lung bases. Pleural spaces: Unremarkable. No pleural effusion. No pneumothorax. Heart/Mediastinum: Heart size is stable when compared to the prior exam. Bones/joints: Osseous structures are unchanged from the prior exam. Organs: Surgical clips are present in the right upper quadrant which are suggestive of prior cholecystectomy. XR/XR chest 1V portable [id number] IMPRESSION: Trace atelectasis or scar noted in the right mid lung and bilateral lung bases.
--- NOTE | 2024-06-04 08:44 | ECG_ITS ---
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 Measurements Intervals [place] Rate: 75 P: 37 AR: 194 QRS: -47 QRSD: 113 T: 70 QT: 415 QTc: 465 Interpretive Statements SINUS RHYTHM LEFT AXIS DEVIATION [QRS AXIS < -30] PATTERN CONSISTENT WITH PULMONARY DISEASE INCOMPLETE RIGHT BUNDLE BRANCH BLOCK [90+ ms QRS DURATION, TERMINAL R IN V1/V2, 40+ ms S IN I/aVL/V4/V5/V6] VOLTAGE CRITERIA FOR LVH [MEETS CRITERIA IN ONE OF: R(aVL), S(V1), R(V5), R(V5/V6)+S(V1)] POSSIBLE SEPTAL MYOCARDIAL INFARCTION , OF INDETERMINATE AGE [30 ms Q WAVE IN V1/V2] Compared to ECG 04/16/2024 00:48:40 Left-axis deviation now present Left anterior fascicular block no longer present Electronically Signed On 06-04-2024 21:14:57 REFERENCE TEST CLERK by Juan Butts M.D. [email or web address]
--- NOTE | 2024-06-04 08:47 | ED_ITS ---
HPI - Abdominal Pain 2 General: Chief Complaint: Abdominal Pain Stated Complaint: abd Time Seen by Provider: 06/04/24 08:43 History of Present Illness: 84-year-old female presents emergency ro om with epigastric discomfort the last couple of days. No vomiting or diarrhea no medic easy melena hematemesis or coffee-ground emesis. No dysuria urgency or frequency. She has not noticed anything that seems to alleviate or improve it. She does not get any chest pain there is no associated shortness of breath. Patient has a history of coronary artery disease and atrial fibrillation she is on amiodarone aspirin and clopidogrel. She states at times if she is sitting at the table she will get a pack epigastric discomfort and then her legs do not seem to want to work very well as they feel very weak this is bilateral she moves to a recliner and after an hour of resting in the recliner and seems to get better. She has no focal neurologic deficits. She denies back pain. Associated Symptoms: Reports nausea; Denies chills, coffee ground emesis, dysuria, fever(s), hematochezia, hematemesis, melena and vomiting Related Data Home Medications Medication Instructions Recorded Confirmed cranberry 500 mg capsule 500 mg PO BID 06/04/24 06/04/24 Previous Rx's Medication Instructions Recorded amiodarone 200 mg tablet 200 mg PO DAILY #60 tabs 02/02/24 aspirin 81 mg tablet,delayed 81 mg PO DAILY #90 tabs 02/02/24 release atorvastatin 40 mg tablet 40 mg PO BEDTIME #90 tabs 02/02/24 furosemide 20 mg tablet 20 mg PO DAILY #90 tabs 02/02/24 nitroglycerin 0.4 mg sublingual 0.4 mg sublingual Q5M PRN Chest 02/02/24 tablet Pain #30 tabs clopidogrel 75 mg tablet 75 mg PO DAILY #90 tabs 02/20/24 alendronate 70 mg tablet See Rx Instructions .Route 03/27/24 .COMPLEX #12 tabs levothyroxine 75 mcg capsule 75 mcg PO DAILY #90 caps 04/12/24 lisinopril 10 mg tablet 20 mg (2 x 10 mg) PO DAILY #90 tabs 04/17/24 pantoprazole 40 mg tablet,delayed 40 mg PO DAILY #90 tabs 04/23/24 release (Protonix) Allergies Allergy/AdvReac Type Severity Reaction Status Date / Time No Known Allergies Allergy Verified 05/16/24 15:59 Review of Systems 2 Const: Denies: fever(s) or chills Card: Denies: chest pain Resp: Denies: dyspnea GI: Reports: abdominal pain and nausea; Denies: vomiting, hematemesis, coffee ground emesis, hematochezia or melena : Denies: dysuria, urinary frequency or urinary urgency Musc: Denies: neck pain or back pain Skin/Breast: Denies: rash PFSH ED 2 PFSH: Medical History Atrial fibrillation Myocardial infarction Non-ST elevation [place] (NSTEMI) Hyperlipidemia Osteoporosis HTN (hypertension) Hypothyroidism Surgical History History of left heart catheterization Family History Father Hypertension Social History Smoking and tobacco/nicotine status: never used tobacco/nicotine Lives independently: Yes Housing: House Marital status: / Physical Exam 2 Const: GENERAL APPEARANCE: cooperative ORIENTATION/CONSCIOUSNESS: Yes awake, Yes oriented to person, Yes oriented to place and Yes oriented to time HENMT: COMMON NORMALS: normocephalic, atraumatic and hearing grossly normal bilaterally HEAD & SCALP: normocephalic and atraumatic Resp: COMMON NORMALS: normal respiratory effort, No retractions, No use of accessory muscles and clear to auscultation bilaterally AUSCULTATION: clear to auscultation bilaterally Cardio: COMMON NORMALS: regular rate, regular rhythm and No murmurs present (Cardio) RATE: regular rate RHYTHM: regular rhythm GI: COMMON NORMALS: Soft to palpation and No hepatosplenomegaly present A USCULTATION: Yes normoactive bowel sounds PALPATION: Yes Soft to palpation, No Tenderness to palpation present (GI), No Guarding due to palpation present (GI) and Yes No hepatosplenomegaly present Extremity: COMMON NORMALS: normal to inspection, capillary refill normal, no clubbing, cyanosis or edema, no calf tenderness and no pedal edema Neuro: SENSORIUM/ORIENTATION: Yes oriented to person, Yes oriented to place and Yes oriented to time Skin: COMMON NORMALS: no rashes or lesions noted GENERAL SKIN EXAM: no rashes or lesions noted Course 2 Vital Signs: Vital signs: Vital Signs Temperature 98.2 F 06/04/24 08:38 Pulse Rate 80 06/04/24 13:10 Respiratory Rate 18 06/04/24 13:10 Blood Pressure 185/98 06/04/24 13:10 Pulse Oximetry 92 06/04/24 13:10 Oxygen Delivery Me thod Room Air 06/04/24 08:38 MDM - Abdominal Pain Medical Decision Making Labs unremarkable CT does not show any acute findings. Does have moderate stool load. Will discharge patient home recommend mag citrate and [place] magnesia to relieve constipation if persistent discomfort follow-up with primary care. Medical Records I reviewed the patient's medical records. Lab Data I reviewed the patient's lab results. 06/04/24 08:57 06/04/24 10:14 Labs/Radiology: Radiology Impressions Chest X-Ray 06/04/24 08:43 IMPRESSION: Trace atelectasis or scar noted in the right mid lung and bilateral lung bases. Abdomen/Pelvis CT 06/04/24 09:46 IMPRESSION: Mild stool burden. Laboratory Results WBC 7.16 10^3/uL (3.29-11.43) 06/04/24 08:57 RBC 4.48 10^6/uL (3.85-5.65) 06/04/24 08:57 Hgb 13.80 g/dL (11.27-16.99) 06/04/24 08:57 Hct 42.7 % (36-47) 06/04/24 08:57 MCV 95.3 fl (85-98) 06/04/24 08:57 MCH 30.8 pg (27-33) 06/04/24 08:57 MCHC 32.3 g/dL (30-55) 06/04/24 08:57 RDW 13.4 % (12.1-15.1) 06/04/24 08:57 Plt Count 281 10^3/cmm (157-399) 06/04/24 08:57 MPV 10.0 fL (7.4-10.4) 06/04/24 08:57 Neut % (Auto) 52.5 % 06/04/24 08:57 Lymph % (Auto) 32.5 % 06/04/24 08:57 [place] % (Auto) 11.2 % 06/04/24 08:57 Eos % (Auto) 2.9 % 06/04/24 08:57 Baso % (Auto) 0.8 % 06/04/24 08:57 Neut # (Auto) 3.75 10^3/uL (1.8-7.7) 06/04/24 08:57 Lymph # (Auto) 2.3 10^3/uL (0.8-4.8) 06/04/24 08:57 [place] # (Auto) 0.8 10^3/uL (0.2-0.9) 06/04/24 08:57 Eos # (Auto) 0.2 10^3/uL (0.0-0.8) 06/04/24 08:57 Baso # (Auto) 0.1 10^3/uL (0.0-0.1) 06/04/24 08:57 Nucleated RBC % (auto) 0 % 06/04/24 08:57 Nucleated RBCs # 0.0 /100WBC 06/04/24 08:57 Sodium 142 mmol/L (136-145) 06/04/24 10:14 Potassium 4.0 mmol/L (3.5-5.1) 06/04/24 10:14 Chloride 100 mmol/L (98-107) 06/04/24 10:14 Carbon Dioxide 29 mmol/L (22-29) 06/04/24 10:14 Anion Gap 17.0 (5-19) 06/04/24 10:14 BUN 18 mg/dL (8-23) 06/04/24 10:14 Creatinine 1.3 mg/dL (0.5-0.9) H 06/04/24 10:14 GFR Calculation Not Reportable 06/04/24 10:14 Glucose 91 mg/dL (65-115) 06/04/24 10:14 Calculated Osmolality 295 mOsm/kg (285-295) 06/04/24 10:14 Calcium 9.9 mg/dL (8.5-10.5) 06/04/24 10:14 Total Bilirubin 0.3 mg/dL (0.15-1.2) 06/04/24 10:14 AST 29 U/L (0-32) 06/04/24 10:14 ALT 22 U/L (0-33) 06/04/24 10:14 Alkaline Phosphatase 74 U/L (35-105) 06/04/24 10:14 Total Protein 6.8 g/dL (6.6-8.7) 06/04/24 10:14 Albumin 4.1 g/dL (3.5-5.2) 06/04/24 10:14 Globulin 2.7 g/dL (1.3-4.6) 06/04/24 10:14 Lipase 32 U/L (13-60) 06/04/24 10:14 Urine Color Yellow (Yellow) 06/04/24 09:36 Urine Appearance Clear (CLEAR) 06/04/24 09:36 Urine pH 6.5 (5-7) 06/04/24 09:36 Ur Specific [place] 1.006 (1.005-1.030) 06/04/24 09:36 Urine Protein Negative (Negative) 06/04/24 09:36 Urine Glucose (UA) Negative (Normal) 06/04/24 09:36 Urine Ketones Negative (Negative) 06/04/24 09:36 Urine Blood Negative (Negative) 06/04/24 09:36 Urine Nitrate Negative (Negative) 06/04/24 09:36 Urine Bilirubin Negative (Negative) 06/04/24 09:36 Urine Urobilinogen 0.2 mg/dL (Negative) 06/04/24 09:36 Ur Leukocyte Esterase Negative (Negative) 06/04/24 09:36 Urine RBC 0-2 /hpf (0-2) 06/04/24 09:36 Urine WBC 0-5 /hpf (0-5) 06/04/24 09:36 Ur Squamous Epith Cells 0-5 /hpf (0-5) 06/04/24 09:36 Amorphous Sediment Not Reportable 06/04/24 09:36 Urine Bacteria None seen /hpf (NONE) 06/04/24 09:36 Hyaline Casts 0-4 /lpf H 06/04/24 09:36 All radiology interpretation(s) finalized by discharge Discharge Plan Discharge Patient Disposition: Home Clinical Impression: Constipation, Abdominal pain Condition: Stable Prescriptions: No Action pantoprazole [Protonix] 40 mg tablet,delayed release (DR/EC) 40 mg PO DAILY Qty: 90 0RF alendronate 70 mg tablet See Rx Instructions .ROUTE .COMPLEX Qty: 12 0RF Dose Instruction: TAKE 1 TABLET BY MOUTH 1 TIME WEEKLY Rx Instructions: TAKE 1 TABLET BY MOUTH 1 TIME WEEKLY levothyroxine 75 mcg capsule 75 mcg PO DAILY Qty: 90 0RF clopidogrel 75 mg tablet 75 mg PO DAILY Qty: 90 3RF atorvastatin 40 mg Tablet 40 mg PO BEDTIME Qty: 90 3RF aspirin 81 mg Tablet,Delayed Release (Dr/Ec) 81 mg PO DAILY Qty: 90 3RF nitroglycerin 0.4 mg Tablet, Sublingual 0.4 mg sublingual Q5M PRN (Reason: Chest Pain) Qty: 30 0RF furosemide 20 mg Tablet 20 mg PO DAILY Qty: 90 3RF amiodarone 200 mg tablet 200 mg PO DAILY Qty: 60 2RF lisinopril 10 mg tablet 20 mg PO DAILY Qty: 90 3RF cranberry 500 mg Capsule 500 mg PO BID Rx Instructions: administer with meals Discharge Orders: Discharge ED (Routine); Ordered 06/04/24 Ordered By: Korey Boykin Referrals: Wendy Johnston FNP [Primary Care Provider] - Patient Instructions: Abdominal Pain (ED), Opioid Safety, Pain Management Activity Restrictions/Additional Instructions: Thank you for choosing [facility] for your healthcare needs today. It is very important that you follow up as instructed or that you return to the Emergency Department should you have concerns or if your condition changes or worsens in any way. You are seen in the emergency room with complaint of abdominal pain your laboratory test did not show anything clinically significant your CT did not show any acute pathology. You are moderately constipated. Recommend using lump-fer-pthdury mag citrate or milk of magnesia to relieve constipation follow- up if primary care doctor if symptoms persist. Coding Level of Care Code ED Disabilities Services Officer for Favio Ann
[2024-06-04 09:03] LABS: Basophils # 0.1 10^3/uL (0.0-0.1); Basophils % 0.8 %; Eosinophils # 0.2 10^3/uL (0.0-0.8); Eosinophils % 2.9 %; Hematocrit 42.7 % (36-47); Lymphocytes # 2.3 10^3/uL (0.8-4.8); Lymphocytes % 32.5 %; Mean Corpuscular HGB Conc 32.3 g/dL (30-55); Mean Corpuscular Hemoglobin 30.8 pg (27-33); Mean Corpuscular Volume 95.3 fl (85-98); Monocytes # 0.8 10^3/uL (0.2-0.9); Monocytes % 11.2 %; Neutrophils # 3.75 10^3/uL (1.8-7.7); Neutrophils % 52.5 %; Nucleated Red Blood Cells % 0 %; Platelet Count 281 10^3/cmm (157-399); Red Blood Count 4.48 10^6/uL (3.85-5.65); Red Cell Distribution Width 13.4 % (12.1-15.1); White Blood Count 7.16 10^3/uL (3.29-11.43)
--- NOTE | 2024-06-04 09:46 | CTR_ITS ---
PROCEDURE INFORMATION: Exam: CT Abdomen And Pelvis Without Contrast Exam date and time: 06/04/2024 10:03 AM Age: 84 years old Clinical indication: Abdominal pain; Epigastric TECHNIQUE: Imaging protocol: Computed tomography of the abdomen and pelvis without contrast. Total images: 188 Radiation optimization: All CT scans at this facility use at least one of these dose optimization techniques: automated exposure control; mA and/or kV adjustment per patient size (includes targeted exams where dose is matched to clinical indication); or iterative reconstruction. COMPARISON: CT kidney stone [id number] 01/28/2024 11:06 AM RADIATION DOSE METRICS: Total DLP (mGy-cm): 634 FINDINGS: Diaphragm: A small hiatal hernia is present. Liver: There is too small to characterize low density hepatic lesion. Gallbladder and biliary ducts: Prior cholecystectomy noted. Pancreas: Normal. No ductal dilation. Spleen: Normal. No splenomegaly. Adrenal glands: Normal. No mass. Kidneys and ureters: Normal. No hydronephrosis. Stomach and bowel: Colonic diverticulosis is present without diverticulitis. Mild stool burden. Appendix: No evidence of appendicitis. Intraperitoneal space: Unremarkable. No free air. No significant fluid collection. Vasculature: Unremarkable. No abdominal aortic aneurysm. Lymph nodes: Unremarkable. No enlarged lymph nodes. Urinary bladder: Unremarkable as visualized. Reproductive: Prior hysterectomy noted. Bones/joints: Facet joint degenerative changes are present. Degenerative disc disease changes noted in the lower thoracic and upper lumbar spine. Soft tissues: Unremarkable. Other findings: Moderate atherosclerotic disease burden is evident. CT/CT abdomen pelvis wo con [id number] IMPRESSION: Mild stool burden.
[2024-06-04 09:55] LABS: Bilirubin Urine Negative (Negative); Blood Urine Negative (Negative); Glucose Urine UA Negative (Normal); Ketones Urine Negative (Negative); Leukocyte Esterase Urine Negative (Negative); Nitrate Urine Negative (Negative); Protein Urine Negative (Negative); Specific Gravity, Urine 1.006 (1.005-1.030); Urine Appearance Clear (CLEAR); Urine Color Yellow (Yellow); Urobilinogen Urine 0.2 mg/dL (Negative); pH Urine 6.5 (5-7)
[2024-06-04 10:00] LABS: Add Urine Microscopic? YES; Bacteria Urine None Seen /hpf; Hyaline Casts Urine 0-4 /lpf; RBC Urine 0-2 /hpf (0-2); Squamous Epithelial Cell Urine 0-5 /hpf (0-5); WBC Urine 0-5 /hpf (0-5)
[2024-06-04 10:46] LABS: Alanine Aminotransferase 22 U/L (0-33); Albumin Level 4.1 g/dL (3.5-5.2); Alkaline Phosphatase 74 U/L (35-105); Aspartate Amino Transferase 29 U/L (0-32); Blood Urea Nitrogen 18 mg/dL (8-23); Calcium 9.9 mg/dL (8.5-10.5); Carbon Dioxide 29 mmol/L (22-29); Chloride 100 mmol/L (98-107); Globulin 2.7 g/dL (1.3-4.6); Glucose 91 mg/dL (65-115); Lipase 32 U/L (13-60); Osmolality Calculated 295 mOsm/kg (285-295); Sodium 142 mmol/L (136-145); Total Bilirubin 0.3 mg/dL (0.15-1.2); Total Protein 6.8 g/dL (6.6-8.7)
== END 2024-06-04 13:11 | disposition home or self-care (01) ==
PROVIDERS: Emergency Provider Family Medicine; PCP Nurse Practitioner Family
DX: K59.00 Constipation, unspecified (principal); R10.9 Unspecified abdominal pain; Z79.02 Long term (current) use of antithrombotics/antiplatelets; E78.5 Hyperlipidemia, unspecified; I10 Essential (primary) hypertension
CPT/HCPCS: 36415; 71045; 74176; 80053; 81001; 83690; 85025; 93005; 99285

== ENCOUNTER → 2024-07-22 09:35 | Outpatient (BNVA) | payer MEDICARE, MEDICAID, SELFPAY | PROVIDERS: PCP Nurse Practitioner Family; Visit Provider Nurse Practitioner Family | DX: N30.00 Acute cystitis without hematuria (principal); I10 Essential (primary) hypertension | CPT/HCPCS: 80053; 80061; 81000; 84443; 85025 ==

== ENCOUNTER 2024-07-31 06:28 | Emergency (ER) | payer MEDICARE, MEDICAID, SELFPAY ==
[2024-07-31] VITALS (7 sets, daily range): BP systolic 140–193; BP diastolic 72–110; PULSE 75–97; RESP 18; TEMP 36.6; O2SAT 92–98; BMI 21.0
--- NOTE | 2024-07-31 06:30 | XRR_ITS ---
PROCEDURE INFORMATION: Exam: XR Chest Exam date and time: 07/31/2024 6:39 AM Age: 84 years old Clinical indication: Pain; Chest pressure; Additional info: Cp TECHNIQUE: Imaging protocol: Radiologic exam of the chest. Views: 1 view. COMPARISON: CR XR chest 1V portable [id number] 06/04/2024 8:48 AM FINDINGS: Lungs: Mild atelectasis or fibrosis in the left mid lung. Pleural spaces: Unremarkable. No pleural effusion. No pneumothorax. Heart/Mediastinum: See Vasculature finding. Vasculature: Borderline cardiomegaly and uncoiling of the thoracic aorta accentuated by the AP positioning. Bones/joints: Unremarkable. XR/XR chest 1V portable [id number] IMPRESSION: No acute findings.
--- NOTE | 2024-07-31 06:32 | ECG_ITS ---
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 Measurements Intervals [place] Rate: 81 P: 51 WV: 216 QRS: -52 QRSD: 113 T: 71 QT: 404 QTc: 470 Interpretive Statements SINUS RHYTHM WITH FIRST DEGREE AV BLOCK LEFT ANTERIOR FASCICULAR BLOCK [QRS AXIS <= -45, QR IN I, RS IN II] MODERATE VOLTAGE CRITERIA FOR LVH, CONSIDER NORMAL VARIANT [MEETS CRITERIA IN ONE OF: R(aVL), S(V1), R(V5), R(V5/V6)+S(V1)] POSSIBLE SEPTAL MYOCARDIAL INFARCTION , PROBABLY OLD [30 ms Q WAVE IN V1/V2] Compared to ECG 06/04/2024 08:47:11 First degree AV block now present Left anterior fascicular block now present Left-axis deviation no longer present Incomplete right bundle-branch block no longer present Myocardial infarct finding still present Electronically Signed On 08-03-2024 19:42:58 SHAG TRUCK DRIVER by Juan Butts M.D. [email or web address]
--- NOTE | 2024-07-31 06:38 | W.ED.CHESTPA ---
HPI - Chest Pain General: Chief Complaint: Chest Pain Stated Complaint: chest pain Time Seen by Provider: 07/31/24 06:30 Source: patient Mode of arrival: ambulatory Limitations: no limitations History of Present Illness: 84-year-old female states that she has been having left-sided chest pain since this morning. States pains been sharp in nature ongoing had some relief at home with nitro. History of stent placement last year she denies any shortness of breath denies any abdominal pain or vomiting. Associated symptoms: Deny abdominal pain, dyspnea, fever(s), nausea or vomiting Related Data Home Medications ?Medication ?Instructions ?Recorded ?Confirmed cranberry 500 mg capsule 500 mg PO BID 06/04/24 07/31/24 alendronate 70 mg tablet 70 mg PO Q7D 07/31/24 07/31/24 amiodarone 200 mg tablet 200 mg PO DAILY 07/31/24 07/31/24 levothyroxine 88 mcg capsule 88 mcg PO QAM 07/31/24 07/31/24 Previous Rx's ?Medication ?Instructions ?Recorded aspirin 81 mg tablet,delayed 81 mg PO DAILY #90 tabs 02/02/24 release atorvastatin 40 mg tablet 40 mg PO BEDTIME #90 tabs 02/02/24 furosemide 20 mg tablet 20 mg PO DAILY #90 tabs 02/02/24 nitroglycerin 0.4 mg sublingual 0.4 mg sublingual Q5M PRN Chest 02/02/24 tablet Pain #30 tabs clopidogrel 75 mg tablet 75 mg PO DAILY #90 tabs 02/20/24 lisinopril 10 mg tablet 20 mg (2 x 10 mg) PO DAILY #90 tabs 04/17/24 pantoprazole 40 mg tablet,delayed 40 mg PO DAILY #90 tabs 07/22/24 release (Protonix) Allergies Allergy/AdvReac Type Severity Reaction Status Date / Time No Known Allergies Allergy Verified 07/31/24 06:37 Review of Systems Const: Denies: fever(s), chills, body aches or change in appetite ENMT: Denies: throat pain or dental pain Card: Reports: chest pain Resp: Denies: dyspnea GI: Denies: abdominal pain, nausea, vomiting or diarrhea Musc: Denies: neck pain or back pain Skin/Breast: Denies: rash Neuro: Denies: headache(s) PFSH ED PFSH: Medical History Atrial fibrillation Myocardial infarction Non-ST elevation [place] (NSTEMI) Hyperlipidemia Osteoporosis HTN (hypertension) Hypothyroidism Surgical History History of left heart catheterization Family History Father Hypertension Social History Smoking and tobacco/nicotine status: never used tobacco/nicotine Lives independently: Yes Housing: House Marital status: / Physical Exam Const: COMMON NORMALS: no acute distress, patient oriented x3 and healthy appearing HENMT: COMMON NORMALS: normocephalic and atraumatic HEAD & SCALP: normocephalic and atraumatic Eye: COMMON NORMALS: conjunctivae normal CONJUNCTIVA: Yes conjunctivae normal Neck/C-Spine: COMMON NORMALS: full ROM and supple Chest: COMMONS NORMALS: normal inspection of the chest Resp: COMMON NORMALS: normal respiratory effort Cardio: COMMON NORMALS: regular rate, regular rhythm and No murmurs present (Cardio) RATE: regular rate RHYTHM: regular rhythm GI: COMMON NORMALS: Normal to inspection, nondistended, normoactive bowel sounds present, Soft to palpation, non-tender and no masses PALPATION: Yes Soft to palpation Extremity: COMMON NORMALS: normal to inspection and full ROM Neuro: COMMON NORMALS: patient oriented x3, moves all extremities and no focal motor deficits Psych: COMMON NORMALS: mental status grossly normal, Normal thought process present and cooperative THOUGHT PROCESS: Normal thought process present Skin: COMMON NORMALS: no rashes or lesions noted and no wounds GENERAL SKIN EXAM: no rashes or lesions noted Course Vital Signs: Vital signs: Vital Signs Temperature 97.9 F 07/31/24 06:31 Pulse Rate 75 07/31/24 07:46 Respiratory Rate 18 07/31/24 06:41 Blood Pressure 140/72 07/31/24 07:46 Pulse Oximetry 98 07/31/24 07:46 Oxygen Delivery Me thod Room Air 07/31/24 07:46 MDM - Chest Pain Medical Decision Making Patient presents here chest pain is atypical in nature her pains improved here troponins are normal she has no signs of ACS no signs of pulm embolism no signs of dissection she stable for discharge 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 Medical Records I reviewed the patient's medical records. Lab Data I reviewed the patient's lab results. 07/31/24 06:36 07/31/24 06:36 Radiology Impressions Chest X-Ray 07/31/24 06:30 IMPRESSION: No acute findings. Laboratory Results WBC 9.60 10^3/uL (3.29-11.43) 07/31/24 06:36 RBC 4.34 10^6/uL (3.85-5.65) 07/31/24 06:36 Hgb 13.50 g/dL (11.27-16.99) 07/31/24 06:36 Hct 40.9 % (36-47) 07/31/24 06:36 MCV 94.2 fl (85-98) 07/31/24 06:36 MCH 31.1 pg (27-33) 07/31/24 06:36 MCHC 33.0 g/dL (30-55) 07/31/24 06:36 RDW 14.0 % (12.1-15.1) 07/31/24 06:36 Plt Count 229 10^3/cmm (157-399) 07/31/24 06:36 MPV 9.9 fL (7.4-10.4) 07/31/24 06:36 Neut % (Auto) 71.0 % 07/31/24 06:36 Lymph % (Auto) 19.1 % 07/31/24 06:36 [place] % (Auto) 8.5 % 07/31/24 06:36 Eos % (Auto) 0.7 % 07/31/24 06:36 Baso % (Auto) 0.5 % 07/31/24 06:36 Neut # (Auto) 6.81 10^3/uL (1.8-7.7) 07/31/24 06:36 Lymph # (Auto) 1.8 10^3/uL (0.8-4.8) 07/31/24 06:36 [place] # (Auto) 0.8 10^3/uL (0.2-0.9) 07/31/24 06:36 Eos # (Auto) 0.1 10^3/uL (0.0-0.8) 07/31/24 06:36 Baso # (Auto) 0.1 10^3/uL (0.0-0.1) 07/31/24 06:36 Nucleated RBC % (auto) 0 % 07/31/24 06:36 Nucleated RBCs # 0.0 /100WBC 07/31/24 06:36 PT 12.00 SECONDS (12.1-14.9) L 07/31/24 06:36 INR 0.83 (0.8-1.2) 07/31/24 06:36 Sodium 138 mmol/L (136-145) 07/31/24 06:36 Potassium 4.4 mmol/L (3.5-5.1) 07/31/24 06:36 Chloride 98 mmol/L (98-107) 07/31/24 06:36 Carbon Dioxide 28 mmol/L (22-29) 07/31/24 06:36 Anion Gap 16.4 (5-19) 07/31/24 06:36 BUN 31 mg/dL (8-23) H 07/31/24 06:36 Creatinine 1.6 mg/dL (0.5-0.9) H 07/31/24 06:36 GFR Calculation Not Reportable 07/31/24 06:36 Glucose 115 mg/dL (65-115) 07/31/24 06:36 Calculated Osmolality 293 mOsm/kg (285-295) 07/31/24 06:36 Calcium 10.4 mg/dL (8.5-10.5) 07/31/24 06:36 Total Bilirubin 0.5 mg/dL (0.15-1.2) 07/31/24 06:36 AST 33 U/L (0-32) H 07/31/24 06:36 ALT 29 U/L (0-33) 07/31/24 06:36 Alkaline Phosphatase 80 U/L (35-105) 07/31/24 06:36 Troponin T Baseline 29 ng/L (0-10) H 07/31/24 06:36 Troponin T 120 Minute 27.41 ng/L (0-10) H 07/31/24 08:33 Delta Troponin T -1.59 ABS# (0-10) L 07/31/24 08:33 Total Protein 7.5 g/dL (6.6-8.7) 07/31/24 06:36 Albumin 4.4 g/dL (3.5-5.2) 07/31/24 06:36 Globulin 3.1 g/dL (1.3-4.6) 07/31/24 06:36 Lipase 33 U/L (13-60) 07/31/24 06:36 All radiology interpretation(s) finalized by discharge EKG Data EKG 1: I personally reviewed and interpreted this EKG as follows: EKG interpretation date: 07/31/24 EKG interpretation time: 06:32 Interpretation: nsr hr [address] elevation qrs 113 qtc 441 EKG 2: I personally reviewed and interpreted this EKG as follows: EKG interpretation date: 07/31/24 EKG interpretation time: 08:22 Interpretation: nsr hr [address] elevation qrs 118 qtc 466 Discharge Plan Discharge Patient Disposition: Home Clinical Impression: Chest pain Condition: Stable Prescriptions: No Action pantoprazole [Protonix] 40 mg tablet,delayed release (DR/EC) 40 mg PO DAILY Qty: 90 0RF clopidogrel 75 mg tablet 75 mg PO DAILY Qty: 90 3RF amiodarone 200 mg tablet 200 mg PO DAILY alendronate 70 mg tablet 70 mg PO Q7D Rx Instructions: Monday levothyroxine 88 mcg capsule 88 mcg PO QAM atorvastatin 40 mg Tablet 40 mg PO BEDTIME Qty: 90 3RF aspirin 81 mg Tablet,Delayed Release (Dr/Ec) 81 mg PO DAILY Qty: 90 3RF nitroglycerin 0.4 mg Tablet, Sublingual 0.4 mg sublingual Q5M PRN (Reason: Chest Pain) Qty: 30 0RF furosemide 20 mg Tablet 20 mg PO DAILY Qty: 90 3RF lisinopril 10 mg tablet 20 mg PO DAILY Qty: 90 3RF cranberry 500 mg Capsule 500 mg PO BID Rx Instructions: administer with meals Discharge Orders: Discharge ED (Routine); Ordered 07/31/24 Ordered By: Anthony Carvalho Referrals: Wendy Johnston FNP [Primary Care Provider] - Juan Butts M.D [Physician] - 4-7 days Discharge Diet: Advance as tolerated Discharge Activity: Resume usual activity Patient Instructions: Chest Pain (ED) Print Language: Slovenian Coding Level of Care Code ED Batt Machine Operator for Favio Ann
[2024-07-31 06:50] LABS: Basophils # 0.1 10^3/uL (0.0-0.1); Basophils % 0.5 %; Eosinophils # 0.1 10^3/uL (0.0-0.8); Eosinophils % 0.7 %; Hematocrit 40.9 % (36-47); Lymphocytes # 1.8 10^3/uL (0.8-4.8); Lymphocytes % 19.1 %; Mean Corpuscular Hemoglobin 31.1 pg (27-33); Mean Corpuscular Volume 94.2 fl (85-98); Mean Platelet Volume 9.9 fL (7.4-10.4); Monocytes # 0.8 10^3/uL (0.2-0.9); Monocytes % 8.5 %; Neutrophils # 6.81 10^3/uL (1.8-7.7); Nucleated Red Blood Cells % 0 %; Platelet Count 229 10^3/cmm (157-399); Red Blood Count 4.34 10^6/uL (3.85-5.65)
[2024-07-31 07:02] LABS: INR 0.83 (0.8-1.2)
[2024-07-31] MEDS: ondansetron 2 mg/ML SDV 2 mL 4 MG IVP (07:02)
[2024-07-31] MEDS: morphine 4 mg/mL SDV 1 mL IVP (07:02)
[2024-07-31] MEDS: nitroglycerin 0.4 mg sublingual Tablet SUBLINGUAL (07:03)
[2024-07-31 07:07] LABS: Alanine Aminotransferase 29 U/L (0-33); Albumin Level 4.4 g/dL (3.5-5.2); Alkaline Phosphatase 80 U/L (35-105); Anion Gap 16.4 (5-19); Aspartate Amino Transferase 33 U/L (0-32); Blood Urea Nitrogen 31 mg/dL (8-23); Calcium 10.4 mg/dL (8.5-10.5); Carbon Dioxide 28 mmol/L (22-29); Chloride 98 mmol/L (98-107); Creatinine Clr Calc Pharmacy 20.2905; Globulin 3.1 g/dL (1.3-4.6); Glucose 115 mg/dL (65-115); Lipase 33 U/L (13-60); Osmolality Calculated 293 mOsm/kg (285-295); Potassium 4.4 mmol/L (3.5-5.1); Sodium 138 mmol/L (136-145); Total Bilirubin 0.5 mg/dL (0.15-1.2); Total Protein 7.5 g/dL (6.6-8.7)
[2024-07-31 07:08] LABS: Troponin(5th) Baseline 29 ng/L (0-10)
--- NOTE | 2024-07-31 08:22 | ECG_ITS ---
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 Measurements Intervals [place] Rate: 76 P: 6 ME: 225 QRS: 113 QRSD: 118 T: -10 QT: 436 QTc: 491 Interpretive Statements SINUS RHYTHM WITH FIRST DEGREE AV BLOCK POSSIBLE RIGHT VENTRICULAR HYPERTROPHY [SOME/ALL OF: PROMINENT R IN V1, LATE TRANSITION, RAD, YENNY, SSS] SEPTAL MYOCARDIAL INFARCTION , OF INDETERMINATE AGE [40+ ms Q WAVE IN V1/V2] Compared to ECG 07/31/2024 06:32:57 Left anterior fascicular block no longer present Myocardial infarct finding still present Electronically Signed On 08-03-2024 19:42:52 CYLINDER MACHINE OPERATOR PULP DRIER by Juan Butts M.D. [email or web address]
[2024-07-31 09:10] LABS: Troponin 5 2HR 27.41 ng/L (0-10)
[2024-07-31 09:11] LABS: Troponin 5 2HR Delta -1.59 ABS# (0-10)
[2024-07-31] MEDS: ketorolac 30 mg/mL INJ 15 MG IVP (09:38)
== END 2024-07-31 10:15 | disposition home or self-care (01) ==
PROVIDERS: Emergency Provider Emergency Medicine; PCP Nurse Practitioner Family
DX: R07.9 Chest pain, unspecified (principal); E78.5 Hyperlipidemia, unspecified; I10 Essential (primary) hypertension
CPT/HCPCS: 36415; 71045; 80053; 83690; 84484; 85025; 85610; 93005; 96374; 96375; 99285; J1885; J2270; J2405

== ENCOUNTER → 2024-08-12 08:54 | Outpatient (BNVA) | payer MEDICARE, MEDICAID, SELFPAY | PROVIDERS: PCP Nurse Practitioner Family; Visit Provider Nurse Practitioner Family | DX: I10 Essential (primary) hypertension (principal); E03.4 Atrophy of thyroid (acquired) | CPT/HCPCS: 80053; 84443 ==

== ENCOUNTER → 2024-08-28 10:01 | Outpatient (BNVA) | payer MEDICARE, MEDICAID, SELFPAY | PROVIDERS: PCP Nurse Practitioner Family; Visit Provider Nurse Practitioner Family | DX: N39.0 Urinary tract infection, site not specified (principal); N30.00 Acute cystitis without hematuria | CPT/HCPCS: 81000; 87086 ==

== ENCOUNTER 2024-09-04 11:53 | Outpatient (CLI) | payer MEDICARE, MEDICAID, SELFPAY ==
--- NOTE | 2024-09-04 12:15 | USR_ITS ---
PROCEDURE INFORMATION: Exam: US Duplex Bilateral Lower Extremity Arteries Exam date and time: 09/04/2024 12:16 PM Age: 84 years old Clinical indication: Pain; Leg, lower; Bilateral; Additional info: Bilateral leg pain TECHNIQUE: Imaging protocol: Real-time ultrasound scan of the arteries of the bilateral lower extremities with 2-D santos scale, color Doppler flow and spectral waveform analysis. Images documented and saved. COMPARISON: CT abdomen pelvis wo con [id number] 06/04/2024 10:03 AM FINDINGS: Right common femoral artery: No occlusion or significant stenosis. Normal waveform. Right superficial femoral artery: No occlusion or significant stenosis. Normal waveform. Right popliteal artery: No occlusion or significant stenosis. Normal waveform. Right calf/foot arteries: No occlusion or significant stenosis in the visualized arteries. Normal waveforms. Dorsalis pedis artery is patent. Left common femoral artery: No occlusion or significant stenosis. Normal waveform. Left superficial femoral artery: No occlusion or significant stenosis. Normal waveform. Left popliteal artery: No occlusion or significant stenosis. Normal waveform. Left calf/foot arteries: No occlusion or significant stenosis in the visualized arteries. Normal waveforms. Dorsalis pedis artery is patent. Other findings: Right MARY 0.96. Left MARY: 0.95. Normal. US/[place] [id number] IMPRESSION: No stenosis or occlusion.
== END 2024-09-04 11:54 | disposition home or self-care (01) ==
LOC: RAD 11:54
PROVIDERS: PCP Nurse Practitioner Family; Visit Provider Internal Medicine
DX: M79.604 Pain in right leg (principal); M79.605 Pain in left leg
CPT/HCPCS: 93925

== ENCOUNTER 2024-10-01 08:00 | Emergency (ER) | payer MEDICARE, MEDICAID, SELFPAY ==
[2024-10-01 08:08] VITALS: BP 187/88; PULSE 75; RESP 16; TEMP 36.6; O2SAT 98; BMI 28.1
--- NOTE | 2024-10-01 08:09 | ECG_ITS ---
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 Measurements Intervals [place] Rate: 73 P: 61 CA: 196 QRS: -51 QRSD: 116 T: 73 QT: 415 QTc: 460 Interpretive Statements SINUS RHYTHM WITH OCCASIONAL SUPRAVENTRICULAR PREMATURE COMPLEXES PATTERN CONSISTENT WITH PULMONARY DISEASE LEFT ANTERIOR FASCICULAR BLOCK [QRS AXIS <= -45, QR IN I, RS IN II] MODERATE VOLTAGE CRITERIA FOR LVH, CONSIDER NORMAL VARIANT [MEETS CRITERIA IN ONE OF: R(aVL), S(V1), R(V5), R(V5/V6)+S(V1)] POSSIBLE SEPTAL MYOCARDIAL INFARCTION , OF INDETERMINATE AGE [30 ms Q WAVE IN V1/V2] Compared to ECG 07/31/2024 08:22:18 Left anterior fascicular block now present First degree AV block no longer present Myocardial infarct finding still present Electronically Signed On 10-02-2024 17:48:01 CDT by Agnes Gibbs M.D. [email or web address] [id number]
--- NOTE | 2024-10-01 08:11 | XR_ITS ---
WS: [id number] XR chest 1V portable [id number] REASON FOR EXAM: chest pain FINDINGS: Chest is unchanged compared to 07/31/2024. Moderate tortuosity the thoracic aorta with mild ectasia. Mild cardiomegaly. Calcified granulomatous disease in both hemithoraces. No acute pulmonary parenchymal or pleural abnormality. Moderate degenerative spondylosis in the mid and lower thoracic spine. XR/XR chest 1V portable [id number] IMPRESSION: Cardiomegaly. Stable chest without acute abnormality.
--- NOTE | 2024-10-01 08:15 | ED_ITS ---
HPI - Chest Pain 2 General: Chief Complaint: Back Pain/Injury Stated Complaint: chest pain (shoulderblades) Time Seen by Provider: 10/01/24 08:05 History of Present Illness: 84-year-old female with a history of atr ial fibrillation no history of coronary disease presents emergency room complaining of chest pain. She previously had coronary artery disease she is complaining of chest pain and back pain states been going on for a full week she has not noticed anything that exacerbates or relieves it. She denies any diaphoresis or shortness of breath with it no vomiting no diarrhea no hemoptysis no history of DVT. No radiation to the neck or arms. Associated symptoms: Deny abdominal pain, dyspnea or fever(s) Related Data Home Medications ?Medication ?Instructions ?Recorded ?Confirmed cranberry 500 mg capsule 500 mg PO BID 06/04/2410/01 amiodarone 200 mg tablet 200 mg PO DAILY 07/31/2411/20 docusate sodium 100 mg capsule 100 mg PO BID 10/01/24 10/01/24 (Colace) Previous Rx's ?Medication ?Instructions ?Recorded aspirin 81 mg tablet,delayed 81 mg PO DAILY #90 tabs 0 02/02/24 release atorvastatin 40 mg tablet 40 mg PO BEDTIME #90 tabs nitroglycerin 0.4 mg sublingual 0.4 mg sublingual Q5M PRN Chest 02/02/24 tablet Pain #30 tabs clopidogrel 75 mg tablet 75 mg PO DAILY #90 tabs 01/28 09/19 lisinopril 10 mg tablet 20 mg (2 x 10 mg) PO DAILY # 90 tabs 04/17/24 pantoprazole 40 mg tablet,delayed 40 mg PO DAILY #90 t abs 07/22/24 release (Protonix) levothyroxine 100 mcg capsule 100 mcg PO DAILY #90 cap s 08/19/24 trazodone 50 mg tablet 25 mg (1/2 x 50 mg) PO .at h s #30 08/28/24 tabs alendronate 70 mg tablet See Rx Instructions .Route 0 09/02/24 .COMPLEX #12 tabs furosemide 20 mg tablet 20 mg PO DAILY #90 tabs 04 0 diclofenac sodium 75 mg 75 mg PO Q12H PRN pain #20 t abs 10/01/24 tablet,delayed release Allergies Allergy/AdvReac Type Severity Reaction Status Date / Time No Known Allergies Allergy Verified 10/01/24 08:18 Review of Systems 2 Const: Denies: fever(s) or chills Card: Denies: chest pain Resp: Denies: dyspnea GI: Denies: abdominal pain : Denies: dysuria, urinary frequency or urinary urgency Musc: Denies: neck pain or back pain Skin/Breast: Denies: rash PFSH ED 2 PFSH: Medical History Atrial fibrillation Myocardial infarction Non-ST elevation VA (NSTEMI) Hyperlipidemia Osteoporosis HTN (hypertension) Hypothyroidism Surgical History History of left heart catheterization Family History Father Hypertension Social History Smoking and tobacco/nicotine status: never used tobacco/nicotine Lives independently: Yes Housing: House Marital status: / Physical Exam 2 Const: GENERAL APPEARANCE: cooperative ORIENTATION/CONSCIOUSNESS: Yes awake, Yes oriented to person, Yes oriented to place and Yes oriented to time HENMT: COMMON NORMALS: normocephalic, atraumatic and hearing grossly normal bilaterally HEAD & SCALP: normocephalic and atraumatic Resp: COMMON NORMALS: normal respiratory effort, No retractions, No use of accessory muscles and clear to auscultation bilaterally AUSCULTATION: clear to auscultation bilaterally Cardio: COMMON NORMALS: regular rate, regular rhythm and No murmurs present (Cardio) RATE: regular rate RHYTHM: regular rhythm GI: COMMON NORMALS: Soft to palpation and No hepatosplenomegaly present A USCULTATION: Yes normoactive bowel sounds PALPATION: Yes Soft to palpation, No Tenderness to palpation present (GI), No Guarding due to palpation present (GI) and Yes No hepatosplenomegaly present Extremity: COMMON NORMALS: normal to inspection, capillary refill normal, no clubbing, cyanosis or edema, no calf tenderness and no pedal edema Neuro: SENSORIUM/ORIENTATION: Yes oriented to person, Yes oriented to place and Yes oriented to time Skin: COMMON NORMALS: no rashes or lesions noted GENERAL SKIN EXAM: no rashes or lesions noted Course 2 Vital Signs: Vital signs: Vital Signs Temperature 97.8 F 10/01/24 08:08 Pulse Rate 75 10/01/24 13:06 Respiratory Rate 18 10/01/24 08:19 Blood Pressure 179/94 10/01/24 13:06 Pulse Oximetry 96 10/01/24 13:06 Oxygen Delivery Me thod Room Air 10/01/24 12:28 MDM - Chest Pain Medical Decision Making Cardiac enzymes and EKG are normal labs and imaging reviewed. Cardiac enzymes negative. X-ray of the thoracic spine did not show any acute fractures. Will discharge patient home I think this is more musculoskeletal she is not having any chest comfort I will now give her diclofenac use. Follow-up with primary care if not improving. Medical Records I reviewed the patient's medical records. Lab Data I reviewed the patient's lab results. 10/01/24 08:17 10/01/24 08:17 Radiology Impressions Chest X-Ray 10/01/24 08:11 IMPRESSION: Cardiomegaly. Stable chest without acute abnormality. Thoracic Spine X-Ray 10/01/24 08:42 IMPRESSION: Degenerative spondylosis and kyphosis without definite acute abnormality. Laboratory Results WBC 7.53 10^3/uL (3.29-11.43) 10/01/24 08:17 RBC 4.26 10^6/uL (3.85-5.65) 10/01/24 08:17 Hgb 13.50 g/dL (11.27-16.99) 10/01/24 08:17 Hct 42.6 % (36-47) 10/01/24 08:17 MCV 100.0 fl (85-98) H 10/01/24 08:17 MCH 31.7 pg (27-33) 10/01/24 08:17 MCHC 31.7 g/dL (30-55) 10/01/24 08:17 RDW 13.4 % (12.1-15.1) 10/01/24 08:17 Plt Count 226 10^3/cmm (157-399) 10/01/24 08:17 MPV 10.0 fL (7.4-10.4) 10/01/24 08:17 Neut % (Auto) 56.9 % 10/01/24 08:17 Lymph % (Auto) 30.8 % 10/01/24 08:17 [place] % (Auto) 8.8 % 10/01/24 08:17 Eos % (Auto) 2.5 % 10/01/24 08:17 Baso % (Auto) 0.7 % 10/01/24 08:17 Neut # (Auto) 4.29 10^3/uL (1.8-7.7) 10/01/24 08:17 Lymph # (Auto) 2.3 10^3/uL (0.8-4.8) 10/01/24 08:17 [place] # (Auto) 0.7 10^3/uL (0.2-0.9) 10/01/24 08:17 Eos # (Auto) 0.2 10^3/uL (0.0-0.8) 10/01/24 08:17 Baso # (Auto) 0.1 10^3/uL (0.0-0.1) 10/01/24 08:17 Nucleated RBC % (auto) 0 % 10/01/24 08:17 Nucleated RBCs # 0.0 /100WBC 10/01/24 08:17 Sodium 141 mmol/L (136-145) 10/01/24 08:17 Potassium 4.5 mmol/L (3.5-5.1) 10/01/24 08:17 Chloride 101 mmol/L (98-107) 10/01/24 08:17 Carbon Dioxide 28 mmol/L (22-29) 10/01/24 08:17 Anion Gap 16.5 (5-19) 10/01/24 08:17 BUN 33 mg/dL (8-23) H 10/01/24 08:17 Creatinine 1.5 mg/dL (0.5-0.9) H 10/01/24 08:17 GFR Calculation Not Reportable 10/01/24 08:17 Glucose 117 mg/dL (65-115) H 10/01/24 08:17 Calculated Osmolality 300 mOsm/kg (285-295) H 10/01/24 08:17 Calcium 10.2 mg/dL (8.5-10.5) 10/01/24 08:17 Total Bilirubin 0.3 mg/dL (0.15-1.2) 10/01/24 08:17 AST 42 U/L (0-32) H 10/01/24 08:17 ALT 40 U/L (0-33) H 10/01/24 08:17 Alkaline Phosphatase 67 U/L (35-105) 10/01/24 08:17 Troponin T Baseline 31 ng/L (0-10) H 10/01/24 08:17 Troponin T 120 Minute 31.59 ng/L (0-10) H 10/01/24 11:07 Delta Troponin T 0.59 ABS# (0-10) 10/01/24 11:07 Total Protein 7.0 g/dL (6.6-8.7) 10/01/24 08:17 Albumin 4.6 g/dL (3.5-5.2) 10/01/24 08:17 Globulin 2.4 g/dL (1.3-4.6) 10/01/24 08:17 All radiology interpretation(s) finalized by discharge EKG Data EKG 1: Interpretation: EKG October 01, 2024 8:09 AM ventricular rate 73 sinus rhythm occasional PVCs no acute ST changes noted. UT interval 196 EKG 2: Interpretation: EKG October 01, 2024 1015. Sinus rhythm first-degree AV block with a UT interval of [address] changes are noted. Rate of 72 Discharge Plan Discharge Patient Disposition: Home Clinical Impression: Upper back pain Condition: Stable Prescriptions: New diclofenac sodium 75 mg tablet,delayed release (DR/EC) 75 mg PO Q12H PRN (Reason: pain) Qty: 20 0RF No Action pantoprazole [Protonix] 40 mg tablet,delayed release (DR/EC) 40 mg PO DAILY Qty: 90 0RF trazodone 50 mg tablet 25 mg PO .at hs Qty: 30 0RF levothyroxine 100 mcg capsule 100 mcg PO DAILY Qty: 90 0RF alendronate 70 mg tablet See Rx Instructions .ROUTE .COMPLEX Qty: 12 0RF Dose Instruction: Take 1 tablet by mouth once a week Rx Instructions: Take 1 tablet by mouth once a week furosemide 20 mg tablet 20 mg PO DAILY Qty: 90 3RF clopidogrel 75 mg tablet 75 mg PO DAILY Qty: 90 3RF amiodarone 200 mg tablet 200 mg PO DAILY docusate sodium [Colace] 100 mg Capsule 100 mg PO BID atorvastatin 40 mg Tablet 40 mg PO BEDTIME Qty: 90 3RF aspirin 81 mg Tablet,Delayed Release (Dr/Ec) 81 mg PO DAILY Qty: 90 3RF nitroglycerin 0.4 mg Tablet, Sublingual 0.4 mg sublingual Q5M PRN (Reason: Chest Pain) Qty: 30 0RF lisinopril 10 mg tablet 20 mg PO DAILY Qty: 90 3RF cranberry 500 mg Capsule 500 mg PO BID Rx Instructions: administer with meals Discharge Orders: Discharge ED (Routine); Ordered 10/01/24 Ordered By: Korey Boykin Referrals: Wendy Johnston FNP [Primary Care Provider, Family Practice] Discharge Diet: Usual diet Discharge Activity: Increase activity as tolerated Patient Instructions: Opioid Safety, Pain Management Activity Restrictions/Additional Instructions: [facility] It is very important that you follow up as instructed or that you return to the Emergency Department should you have concerns or if your condition changes or worsens in any way. You are seen in the emergency room with complaints of chest discomfort and upper back pain it has been going on for a week your cardiac enzymes and EKGs did not show any acute changes. Your troponins were normal. Suspect based on your description of the symptoms along with your evaluation done in the emergency room the pain is more musculoskeletal in nature we did x-ray your thoracic spine was no evidence of acute fracture. Give you diclofenac to use as needed follow- up with your primary care doctor if not improving Print Language: Beninese Coding Level of Care Code ED Mental Health Tech for Favio Ann
[2024-10-01 08:19] VITALS: BP 187/88; PULSE 73; RESP 18; O2SAT 96
[2024-10-01] MEDS: aspirin 81 mg Chew Tablet 324 MG PO (08:23)
[2024-10-01 08:27] LABS: Basophils # 0.1 10^3/uL (0.0-0.1); Basophils % 0.7 %; Eosinophils # 0.2 10^3/uL (0.0-0.8); Eosinophils % 2.5 %; Hematocrit 42.6 % (36-47); Lymphocytes # 2.3 10^3/uL (0.8-4.8); Lymphocytes % 30.8 %; Mean Corpuscular HGB Conc 31.7 g/dL (30-55); Mean Corpuscular Hemoglobin 31.7 pg (27-33); Monocytes # 0.7 10^3/uL (0.2-0.9); Monocytes % 8.8 %; Neutrophils # 4.29 10^3/uL (1.8-7.7); Neutrophils % 56.9 %; Nucleated Red Blood Cells % 0 %; Platelet Count 226 10^3/cmm (157-399); Red Blood Count 4.26 10^6/uL (3.85-5.65); Red Cell Distribution Width 13.4 % (12.1-15.1); White Blood Count 7.53 10^3/uL (3.29-11.43)
--- NOTE | 2024-10-01 08:42 | XR_ITS ---
WS: [id number] XR thoracic spine 2V [id number] REASON FOR EXAM: pain FINDINGS: Examination is degraded by patient motion artifact. There is mild levoscoliosis at the thoracolumbar junction. There is a significant dorsal kyphosis of the thoracic spine. There is mild anterior wedging of the vertebral bodies in the midthoracic spine which appears chronic. There is moderate disc space narrowing and osteophytosis throughout the mid and lower thoracic spine. There is a mild XR/XR thoracic spine 2V [id number] IMPRESSION: Degenerative spondylosis and kyphosis without definite acute abnormality.
[2024-10-01 08:48] LABS: Troponin(5th) Baseline 31 ng/L (0-10)
[2024-10-01 08:53] LABS: Alanine Aminotransferase 40 U/L (0-33); Albumin Level 4.6 g/dL (3.5-5.2); Alkaline Phosphatase 67 U/L (35-105); Anion Gap 16.5 (5-19); Aspartate Amino Transferase 42 U/L (0-32); Blood Urea Nitrogen 33 mg/dL (8-23); Calcium 10.2 mg/dL (8.5-10.5); Carbon Dioxide 28 mmol/L (22-29); Chloride 101 mmol/L (98-107); Creatinine Clr Calc Pharmacy 24.6505; Globulin 2.4 g/dL (1.3-4.6); Glucose 117 mg/dL (65-115); Osmolality Calculated 300 mOsm/kg (285-295); Potassium 4.5 mmol/L (3.5-5.1); Sodium 141 mmol/L (136-145); Total Bilirubin 0.3 mg/dL (0.15-1.2)
[2024-10-01 09:59] VITALS: BP 135/70; PULSE 72; O2SAT 98
--- NOTE | 2024-10-01 10:11 | ECG_ITS ---
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 Measurements Intervals [place] Rate: 72 P: 36 PA: 222 QRS: -47 QRSD: 114 T: 70 QT: 415 QTc: 455 Interpretive Statements SINUS RHYTHM WITH FIRST DEGREE AV BLOCK LEFT ANTERIOR FASCICULAR BLOCK [QRS AXIS <= -45, QR IN I, RS IN II] MODERATE VOLTAGE CRITERIA FOR LVH, CONSIDER NORMAL VARIANT [MEETS CRITERIA IN ONE OF: R(aVL), S(V1), R(V5), R(V5/V6)+S(V1)] POSSIBLE SEPTAL MYOCARDIAL INFARCTION , OF INDETERMINATE AGE [30 ms Q WAVE IN V1/V2] Compared to ECG 10/01/2024 08:09:29 First degree AV block now present Myocardial infarct finding still present Electronically Signed On 10-02-2024 23:39:17 CDT by Agnes Gibbs M.D. [id number] [id number]
[2024-10-01 11:30] LABS: Troponin 5 2HR 31.59 ng/L (0-10); Troponin 5 2HR Delta 0.59 ABS# (0-10)
[2024-10-01 12:28] VITALS: BP 172/94; PULSE 76; O2SAT 95
[2024-10-01 13:06] VITALS: BP 179/94; PULSE 75; O2SAT 96
== END 2024-10-01 13:13 | disposition home or self-care (01) ==
PROVIDERS: Emergency Provider Family Medicine; PCP Nurse Practitioner Family
DX: M54.9 Dorsalgia, unspecified (principal); Z79.02 Long term (current) use of antithrombotics/antiplatelets; E78.5 Hyperlipidemia, unspecified; I10 Essential (primary) hypertension
CPT/HCPCS: 36415; 71045; 72070; 80053; 84484; 85025; 93005; 99285; J9999

== ENCOUNTER → 2024-10-11 11:21 | Outpatient (BNVA) | payer MEDICARE, MEDICAID, SELFPAY | PROVIDERS: PCP Nurse Practitioner Family; Visit Provider Nurse Practitioner Family | DX: E03.4 Atrophy of thyroid (acquired) (principal) | CPT/HCPCS: 84443 ==

== ENCOUNTER → 2024-11-15 10:42 | Outpatient (BNVA) | payer MEDICARE, MEDICAID, SELFPAY | PROVIDERS: PCP Nurse Practitioner Family; Visit Provider Nurse Practitioner Family | DX: I10 Essential (primary) hypertension (principal); E78.2 Mixed hyperlipidemia; I48.91 Unspecified atrial fibrillation; I25.10 Atherosclerotic heart disease of native coronary artery without angina pectoris; Z95.5 Presence of coronary angioplasty implant and graft; I25.2 Old myocardial infarction | CPT/HCPCS: 99214 ==

== ENCOUNTER → 2025-05-01 12:23 | Outpatient (BNVA) | payer MEDICARE, MEDICAID, SELFPAY | PROVIDERS: PCP Nurse Practitioner Family; Visit Provider Internal Medicine | DX: I48.91 Unspecified atrial fibrillation (principal); I25.10 Atherosclerotic heart disease of native coronary artery without angina pectoris; I10 Essential (primary) hypertension | CPT/HCPCS: 99214 ==